=== PATIENT | male | born 1935 | race Caucasian/White ===

== ENCOUNTER → 2017-07-30 | Emergency (ER) | payer MEDICARE, OTHER ==
[~2017-07-30] VITALS: Ht 170.1 cm; Wt 88.5 kg
[2017-07-30 06:43] VITALS: BP 220/117
[2017-07-30 07:03] VITALS: BP 200/122
[2017-07-30 07:08] LABS: BASO # 0.1 10*3/uL (0.0-0.1); BASO % 0.7 % (0.0-1.0); EOS # 0.1 10*3/uL (0.0-0.4); EOS % 1.5 % (1.0-4.0); HEMATOCRIT 49.5 % (42.0-52.0); HEMOGLOBIN 16.9 g/dl (14.0-18.0); LYMPH # 1.6 10*3/uL (1.3-4.4); LYMPH % 21.6 % (27.0-41.0); MEAN CELL VOLUME 89.5 fl (80.0-94.0); MEAN CORPUSCULAR HGB 30.6 pg (27.0-31.0); MEAN CORPUSCULAR HGB CONC 34.1 g/dl (33.0-37.0); MEAN PLATELET VOLUME 10.6 fl (9.6-12.3); MONO # 0.4 10*3/uL (0.1-1.0); MONO % 5.3 % (3.0-9.0); NEUT # 5.1 10*3/uL (2.3-7.9); NEUT % 70.8 % (47.0-73.0); PLATELET COUNT AUTOMATED 179 10*3/uL (130-400); RED BLOOD COUNT 5.53 10*6/uL (4.50-5.90); RED CELL DISTRI WIDTH 14.9 % (0-14.5); WHITE BLOOD COUNT 7.2 10*3/uL (4.8-10.8)
[2017-07-30 07:26] LABS: ACETAMINOPHEN (TYLENOL) < 2.0 ug/ml (10-30); ALBUMIN 3.3 gm/dl (3.1-4.5); ALKALINE PHOSPHATASE 72 U/L (45-117); BUN 11 mg/dl (7-24); CHLORIDE 107 mmol/L (98-107); CREATININE 0.96 mg/dL (0.70-1.30); ETHYL ALCOHOL < 3.0 mg/dl (<3); POTASSIUM 4.3 mmol/L (3.5-5.1); SGOT/AST 41 IU/L (3-35); SGPT/ALT 23 U/L (12-78); SODIUM 140 mmol/L (136-145); TOTAL PROTEIN 7.6 gm/dL (6.4-8.2)
[2017-07-30 07:31] LABS: TROPONIN I < 0.015 ng/ml (<0.045)
--- NOTE | 2017-07-30 07:49 | NUR ---
PT IS CONFUSED AND HYPERTENSIVE. SON AT THE BEDSIDE. ATIVAN GIVEN. PT IS IN VIEW FROM THE DESK.
--- NOTE | 2017-07-30 08:00 | NUR ---
ATIVAN INEFFECTIVE, PT REMAINS CONFUSED AND HYPERTIVE.
[2017-07-30 08:15] VITALS: BP 208/110
--- NOTE | 2017-07-30 08:15 | NUR ---
PT SBP REMAINS IN THE 200'S, NOTIFIED DR NASH, PO LOPRESSOR ORDERED.
[2017-07-30 08:21] LABS: BILIRUBIN NEGATIVE (NEGATIVE); BLOOD 1+ (NEGATIVE); CLARITY CLEAR (CLEAR); COLOR YELLOW (YELLOW); GLUCOSE NEGATIVE (NEGATIVE); KETONE NEGATIVE (NEGATIVE); LEUKO ESTERASE NEGATIVE (NEGATIVE); NITRITE NEGATIVE (NEGATIVE); UROBILINOGEN 0.2 E.U./dl (0.2-1.0)
[2017-07-30 08:28] LABS: URINE AMPHETAMINES < 1000 (1000ng/ml); URINE BARBITURATES < 200 (200ng/ml); URINE BENZODIAZEPINES < 200 (200ng/ml); URINE CANNABINOIDS (THC) < 50 (50ng/ml); URINE COCAINE < 300 (300ng/ml); URINE METHADONE < 300 (300ng/ml); URINE OPIATES < 300 (300ng/ml)
[2017-07-30 08:30] LABS: URINE PHENCYCLIDINE < 25 (25ng/ml)
[2017-07-30 08:33] LABS: MUCOUS 1+
--- NOTE | 2017-07-30 08:57 | NUR ---
PT REFUSED TO SIGN HIS ADMISSION PAPERS AT THIS TIME, STATES "I'M LEAVING".
--- NOTE | 2017-07-30 09:36 | NUR ---
SUSAN PATEL, JERE AT THE BEDSIDE, PT STILL CONFUSED AND REFUSES ADMISSION. SON IS STANDING OUTSIDE THE ROOM, STATES " THERE IS NOTHING I CAN DO, IF HE IS REFUSING I CAN'T MAKE HIM". OF THE PT IS ALSO PRESENT, HOWEVER SHE HAS DEMEMTIA AND IS UNABLE TO MAKE ANY DECISIONS.
[2017-07-30 09:45] VITALS: BP 163/98
--- NOTE | 2017-07-30 09:46 | NUR ---
PT TO BE DISCHRAGED HOME, PT REMAINS CONFUSED AND WILL BE DISCHARGED HOME TO HIS SON AT .
== END ==
LOC: ED 06:34 → EDHOLD 08:53 → ED 08:53 → 5E 09:05 → EDHOLD 09:05 → 5E 09:05
PROVIDERS: Emergency Medicine Emergency Medical Services
DX: R41.0 Disorientation, unspecified (principal); I10 Essential (primary) hypertension; I48.91 Unspecified atrial fibrillation

== ENCOUNTER 2017-09-05 04:56 | Inpatient (IN) | payer MEDICARE, OTHER ==
[~2017-09-05] VITALS: Ht 172.7 cm; Wt 86.3 kg
--- NOTE | ~2017-09-05 | CON ---
[place], [place] REPORT OF CONSULTATION NAME: HAIM PERRY UNIT #: [id number] ROOM: 508 DOCTOR: XU BRADLEY MD BIRTHDATE: [birth year] DOS: 09/07/2017 CHIEF COMPLAINT: "Oh, it's a long story doc, I've been to so many doctors." HISTORY OF PRESENT ILLNESS: This is an 82-year-old male who was brought into the Emergency Room by his son for evaluation of diarrhea and inability to urinate. The patient was admitted to the medical floor for further workup and since he has been here, they have found him to be very confused and bizarre; at times, he has stripped naked and walk the lowery with only his White in place. He has been very bizarre and has made very odd comments. As I approached him, he reports he is here because he has gone from doctor to doctor. He reports he started with Dr. Chen for some vague complaints, but he was worthless, so he went to a doctor in [place]. When this doctor was not able to help him, he went to a doctor who is located on [address] at the [facility]. From there, he went back to Dr. Chen, then he went to Dr. Young in [place] where he received a flu shot in his heel. Because this caused him a great deal of pain, he went back to Dr. Chen. He continued to present this elaborate story of going from doctor to doctor for very bizarre comments. It is obvious that the patient is confused and disoriented and confabulates a great deal. MENTAL STATUS: He is alert and oriented to person, place, but not time. Mood does seem to be rather labile and he shifts topics very quickly. He presents with extreme tangentiality as well as being somewhat delusional. Short term memory is exceedingly poor. DIAGNOSIS: Brief psychotic disorder and Alzheimer dementia. PLAN: At this point, I do think placement is warranted. From talking with the nursing staff, apparently social insurance specialist is working for possible placement for both the patient and his at [facility] on their locked memory unit. The patient would benefit from some dementia medication as well as some possible low dose antipsychotic and he would benefit from inpatient stay on the [facility] should the son and family agree. XU BRADLEY MD CM:CONSTR:REPORT OF CONSULTATION 1018 09/08/17 0011 interface
--- NOTE | ~2017-09-05 | CON ---
[place], [place] REPORT OF CONSULTATION NAME: HAIM PERRY UNIT #: [id number] ROOM: 508 DOCTOR: BRENDA PARK ED.D) BIRTHDATE: [birth year] DOS: 09/05/2017 HISTORY OF PRESENT ILLNESS: The patient is an 82-year-old male referred by the hospitalist for competency. At the present time, he is on the 5th floor at [facility]. He states he is and presently resides with his here in [place]. He does have two sons, one residing in [place], [place] and the other one in [place], [place]. 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 The patient was following formerly with Dr. Robbie Ahumada; Dr. Ahumada is no longer in private practice and apparently the patient has not been following with any medical providers. He denies any alcohol or tobacco use or abuse. The patient was awake, alert and oriented in all three spheres. He had some mild cognitive deterioration; however, he did fairly well. He was quite concerned about the fact that his is not here and was agitated at times regarding the fact that we cannot get her on the telephone. It was explained to him that his was at a restaurant and that she would be calling him here at the hospital. He was alright with that once it was explained to him that she will be calling here. Overall, he did fairly well, but he does have some neurocognitive deterioration, most likely Alzheimer disease. DIAGNOSIS: Minor neurocognitive disorder -- Alzheimer disease. RECOMMENDATIONS: All decision should be made in cooperation with his healthcare surrogate or healthcare power of compliance attorney or his family due to the fact he has some difficulty with his cognitive decompensation. Thank you very much for this consult. BRENDA PARK ED.D CM:CONSTR:REPORT OF CONSULTATION 1219 09/06/17 0036 interface
[2017-09-05 05:02] VITALS: BP 159/98
[2017-09-05] MEDS ORDERED: PREVACID15 MG PO (05:03)
[2017-09-05 05:48] LABS: BASO % 0.5 % (0.0-1.0); EOS # 0.2 10*3/uL (0.0-0.4); EOS % 2.1 % (1.0-4.0); HEMATOCRIT 44.7 % (42.0-52.0); HEMOGLOBIN 15.2 g/dl (14.0-18.0); LYMPH # 1.8 10*3/uL (1.3-4.4); LYMPH % 22.2 % (27.0-41.0); MEAN PLATELET VOLUME 10.1 fl (9.6-12.3); MONO # 0.4 10*3/uL (0.1-1.0); MONO % 4.9 % (3.0-9.0); NEUT # 5.7 10*3/uL (2.3-7.9); NEUT % 69.9 % (47.0-73.0); PLATELET COUNT AUTOMATED 221 10*3/uL (130-400); RED BLOOD COUNT 4.91 10*6/uL (4.50-5.90); RED CELL DISTRI WIDTH 14.1 % (0-14.5); WHITE BLOOD COUNT 8.1 10*3/uL (4.8-10.8)
[2017-09-05] MEDS ORDERED: DONEPEZIL HCL10 MG PO (05:50)
[2017-09-05] MEDS ORDERED: PRAVACHOL40 MG PO (05:51)
[2017-09-05] MEDS ORDERED: LISINOPRIL-HCT1 EACH PO (05:51)
[2017-09-05] MEDS ORDERED: FLOMAX0.4 MG PO (05:52)
[2017-09-05] MEDS ORDERED: FENOFIBRATE160 MG PO (05:52)
[2017-09-05 06:48] LABS: BILIRUBIN NEGATIVE (NEGATIVE); BLOOD NEGATIVE (NEGATIVE); CLARITY CLEAR (CLEAR); COLOR YELLOW (YELLOW); GLUCOSE NEGATIVE (NEGATIVE); KETONE NEGATIVE (NEGATIVE); LEUKO ESTERASE NEGATIVE (NEGATIVE); NITRITE NEGATIVE (NEGATIVE); PH 7.5 (5.0-9.0); SPECIFIC GRAVITY 1.015 (1.005-1.030); UROBILINOGEN 0.2 E.U./dl (0.2-1.0)
[2017-09-05 07:00] LABS: BACTERIA TRACE; EPITHELIAL CELLS 0-2; WBC 0-2 wbc/hpf (0-5)
[2017-09-05 07:01] LABS: ALKALINE PHOSPHATASE 66 U/L (45-117); BUN 10 mg/dl (7-24); CHLORIDE 109 mmol/L (98-107); CREATININE 0.83 mg/dL (0.70-1.30); LIPASE 206 U/L (73-393); POTASSIUM 3.8 mmol/L (3.5-5.1); SGOT/AST 19 IU/L (3-35); SGPT/ALT 28 U/L (12-78); SODIUM 145 mmol/L (136-145); TOTAL PROTEIN 6.9 gm/dL (6.4-8.2)
[2017-09-05 07:15] VITALS: BP 159/98
[2017-09-05 08:00] VITALS: BP 126/70
[2017-09-05 12:00] VITALS: BP 150/95
[2017-09-05 20:00] VITALS: BP 154/82
[2017-09-06] VITALS: BP 160/90
[2017-09-06 07:59] LABS: BASO # 0.1 10*3/uL (0.0-0.1); BASO % 0.5 % (0.0-1.0); EOS # 0.2 10*3/uL (0.0-0.4); EOS % 1.5 % (1.0-4.0); HEMATOCRIT 48.5 % (42.0-52.0); HEMOGLOBIN 16.4 g/dl (14.0-18.0); LYMPH # 2.4 10*3/uL (1.3-4.4); LYMPH % 21.7 % (27.0-41.0); MEAN CELL VOLUME 91.3 fl (80.0-94.0); MEAN CORPUSCULAR HGB 30.9 pg (27.0-31.0); MEAN CORPUSCULAR HGB CONC 33.8 g/dl (33.0-37.0); MEAN PLATELET VOLUME 10.3 fl (9.6-12.3); MONO # 0.7 10*3/uL (0.1-1.0); MONO % 5.9 % (3.0-9.0); NEUT # 7.7 10*3/uL (2.3-7.9); PLATELET COUNT AUTOMATED 244 10*3/uL (130-400); RED BLOOD COUNT 5.31 10*6/uL (4.50-5.90); RED CELL DISTRI WIDTH 14.1 % (0-14.5)
[2017-09-06 08:00] VITALS: BP 165/99
[2017-09-06 08:27] LABS: CHLORIDE 106 mmol/L (98-107); POTASSIUM 4.1 mmol/L (3.5-5.1); SODIUM 141 mmol/L (136-145)
[2017-09-06 08:41] LABS: BUN 8 mg/dl (7-24); CHOLESTEROL 185 mg/dL (<200); CREATININE 0.78 mg/dL (0.70-1.30); FREE T4 1.22 ng/dl (0.76-1.46); HDL CHOLESTEROL 38 mg/dl (40-60); LDL CHOLESTEROL 107 mg/dL (9-159); TRIGLYCERIDES 202 mg/dl (<150); VLDL CHOLESTEROL 40 mg/dL (6-40)
[2017-09-06 09:13] LABS: VITAMIN D, 25-HYDROXY 26.9 ng/mL (30-100)
[2017-09-06 12:00] VITALS: BP 152/57
[2017-09-06 16:00] VITALS: BP 142/97
[2017-09-06 20:00] VITALS: BP 145/90
[2017-09-07] VITALS: BP 142/90
[2017-09-07 08:00] VITALS: BP 149/99
[2017-09-07 12:00] VITALS: BP 140/88
[2017-09-07] MEDS ORDERED: Vitamin D PO (14:30)
[2017-09-07] MEDS ORDERED: RISPERIDONE0.5 MG PO (14:30)
[2017-09-07] MEDS ORDERED: NAMENDA-5 PO (14:30)
[2017-09-07] MEDS ORDERED: RISPERIDONE0.25 M2 PO (14:30)
[2017-09-07 16:00] VITALS: BP 108/70
== END 2017-09-07 16:46 | disposition home health service (06) | DRG 726 ==
LOC: ED 04:56 → EDHOLD 08:50 → 5E 08:50
PROVIDERS: Emergency Medicine; Student in an Organized Health Care Education/Training Program
DX: N40.1 Benign prostatic hyperplasia with lower urinary tract symptoms (principal); L89.152 Pressure ulcer of sacral region, stage 2; E44.0 Moderate protein-calorie malnutrition; G30.9 Alzheimer's disease, unspecified; I48.91 Unspecified atrial fibrillation; F02.80 Dementia in other diseases classified elsewhere, unspecified severity, without behavioral disturbance, psychotic disturbance, mood disturbance, and anxiety; F23 Brief psychotic disorder; R33.8 Other retention of urine; R26.2 Difficulty in walking, not elsewhere classified; E78.00 Pure hypercholesterolemia, unspecified; K58.9 Irritable bowel syndrome, unspecified; I10 Essential (primary) hypertension; Z90.89 Acquired absence of other organs; Z90.49 Acquired absence of other specified parts of digestive tract; Z82.3 Family history of stroke; Z79.899 Other long term (current) drug therapy; Z68.28 Body mass index [BMI] 28.0-28.9, adult

== ENCOUNTER 2017-09-07 15:47 | Inpatient (IN) | payer MEDICARE, OTHER ==
[~2017-09-07] VITALS: Ht 172.7 cm; Wt 86.3 kg
--- NOTE | ~2017-09-07 | PR ---
[place], [place] PROGRESS NOTE NAME: HAIM PERRY UNIT #: [id number] ROOM: 316 DOCTOR: XU BRADLEY MD BIRTHDATE: [birth year] DOS: 09/10/2017 CHIEF COMPLAINT: "Yeah, I think I will stay here a little longer, the ball game was good." SUMMARY OF THE VISIT: The patient was interviewed as he was walking in the hallway. He remains rather confused and he does tend to confabulate a lot. With me, he was pleasant and stated that he enjoyed the hotel and that he was watching the ball game. Otherwise, he was fairly pleasant and bright as mentioned before, though confused and disoriented in his thinking. MENTAL STATUS: He is alert and oriented to self. It is unclear obviously if he realizes he is in the hospital. He is certainly not oriented to time. Mood remains somewhat labile. He remains delusional and very sexually preoccupied and has been very vulgar and profane at times with staff. Memory remains poor. PLAN: His vitamin B12 level is low at 243, so I will go ahead and give him a vitamin B12 injection of 1000 mcg IM today and then q. month. Vitamin D level is also low at 26.9, so I will give him vitamin D 50,000 International Units weekly and discontinue his daily D. We will increase Namenda to 10 mg in the morning and 5 mg at night trying to maximize potential benefit and increase the Risperdal to 0.5 mg in the morning and 1 mg at bedtime to decrease some of his delusions, mood lability and agitation. Engage in individual and connell milieu activity, returning to the least restrictive environment when psychiatrically stable. XU BRADLEY MD CM:PNTRANS [id number] XU BRADLEY MD 09/10/17 1249 interface
--- NOTE | ~2017-09-07 | DS ---
[place], [place] DISCHARGE SUMMARY NAME: HAIM PERRY [facility] #: [id number] UNIT #: [id number] ROOM: 311 DOCTOR: XU BRADLEY MD BIRTHDATE: [birth year] DOS: 09/18/2017 CHIEF COMPLAINT: "I don't know why I am here." HISTORY OF PRESENT ILLNESS: This is an 82-year-old white male who was admitted to the [facility] at [facility] from the medical unit due to increased agitation and aggression. The patient had been admitted because of a significant decubiti, but while on the medical unit was found to be very combative and aggressive. The patient was repeatedly stripping his clothes and walking down the hallway naked. When attempted to be redirected, he would become physically aggressive with staff. He was verbally abusive and would yell profane laden stream of conversation at nurses and other patients. He is admitted now to rule out any organic factors, to attempt to re-stabilize on medication and then to determine the least restrictive environment post-discharge. PAST MEDICAL HISTORY: Remarkable for atrial fibrillation, benign prostatic hypertrophy, Alzheimer's dementia, hyperlipidemia, gait disturbance, moderate protein calorie malnutrition, stage II sacral decubiti and hypertension. SUMMARY OF HOSPITAL COURSE: The patient was admitted to the unit where he was started on Risperdal 0.25 in the morning and 0.5 mg at bedtime. This dose was gradually increased during his stay to a maximum of 2 mg at bedtime; however, after several days of the Risperdal, the patient became episodically compliant with all of his medication. Because he was tolerating the Risperdal well, was not exhibiting any side effects from it, there was no sedation, somnolence, extrapyramidal symptoms or tardive dyskinesia, he was loaded with Risperdal Consta 25 mg IM and the order was given to give this every 14 days. With the Risperdal Consta on board, the patient's symptoms dissipated rather quickly. He became much more pleasant and cooperative. He was able to engage readily in both PT and OT as well as other activities on the unit. Additionally, the patient was given Aricept 10 mg a day, which he had been on previously and Namenda was added first at 5 mg a day and rather rapidly titrated up to 10 mg twice daily. With the Namenda on board augmenting the effectiveness of the Aricept, the patient did improve somewhat cognitively. He also did improve behaviorally to the point where he was able to engage more readily in activities without agitation. He no longer exhibited extreme mood lability. He was not yelling profane laden sentences at people. He was pleasant and cooperative. The patient had improved significantly to be able to be discharged. Given the fact that he still had the sacral decubiti, it was felt that he would benefit from further skilled care and he was sent to [facility] for further treatment. MENTAL STATUS AT DISCHARGE: The patient is alert and oriented to person, possibly place, but not time. Mood was strongly trending towards euthymia. Affect was much more appropriate. There were no symptoms of hypomania or tano. There were no overt auditory or visual hallucinations. No delusions, no paranoia. He did process slowly and his responses at times made little sense. Short-term memory was extremely poor. [place], [place] DISCHARGE SUMMARY [id number] UN[facility] #: [id number] ROOM: [facility] DOCTOR: XU BRADLEY MD BIRTHDATE: [birth year] FINAL DIAGNOSES UPON DISCHARGE: Psychosis, not otherwise specified and Alzheimer's dementia. PLAN: All of his prescriptions have been printed and will be sent with him as he is admitted to [facility]. I will follow him upon his admission there. XU BRADLEY MD CM:DISCHARG [phone] XU BRADLEY MD 09/18/17 1019 interface
--- NOTE | ~2017-09-07 | PR ---
[place], [place] PROGRESS NOTE NAME: HAIM PERRY [facility] #: [id number] UNIT #: [id number] ROOM: 311 DOCTOR: Dallas CARNEY,SUSY BIRTHDATE: [birth year] DOS: 09/15/2017 PSYCHIATRIC PROGRESS NOTE SUBJECTIVE: The patient seen and spoke with the staff. Per staff, the patient is doing well, compliant with his medication, no behavioral problems or issues, easily redirectable. The patient was pleasant, cooperative. He was in his bed. He reports doing well. He said that his mood is better. He denied any side effect from the medication. He reports good sleep and appetite. He was not in any kind of distress. MENTAL STATUS EXAMINATION: Pleasant, cooperative, described his mood as "okay." Affect, mood congruent. He denied auditory or visual hallucination. No delusion or paranoia noted. He denied suicidal ideation, intent or plan. He also denied any homicidal ideation, intent or plan. ASSESSMENT: 1. Alzheimer's dementia with delusion. 2. Brief psychotic disorder. PLAN: 1. Continue current medications and care. 2. Continue redirection. 3. Supportive care. SUSY CARNEY MD CM:TOBI [phone] Dallas CARNEY 09/16/17 0248 interface
--- NOTE | ~2017-09-07 | PR ---
[place], [place] PROGRESS NOTE [facility]: [id number] UNIT #: [id number] ROOM: 311 DOCTOR: XU BRADLEY MD BIRTHDATE: [birth year] DOS: 09/17/2017 CHIEF COMPLAINT: "Good morning sukhdev. Thanks for the coffee." SUMMARY OF THE VISIT: The patient was interviewed as he sat in the dining area with a watching television. He had completed his breakfast and was sipping on his second cup of coffee. He was bright and jovial as I approached thanking me for the coffee and thanking me for visiting. He offered no complaints. Nurses report that overall he has improved other than he occasionally gets upset when he cannot talk to his on the phone. It does take some redirection, but he is able to eventually redirect. MENTAL STATUS: He is alert and oriented to person, place, not necessarily time. Mood does seem to be trending towards euthymia. Affect is more appropriate. There are no symptoms of tano or hypomania. There are no auditory or visual hallucinations. There are no delusions or paranoia. He does process conversation slowly and short term memory is exceedingly poor. PLAN: I will maintain his current psychotropic regimen, continue to engage in individual and connell milieu activities, returning then to the least restrictive environment when psychiatrically stable. XU BRADLEY MD CM:PNTRANS 7 XU BRADLEY MD 09/17/1748 interface
--- NOTE | ~2017-09-07 | PR ---
[place], [place] PROGRESS NOTE [id number] #: [id number] ROOM: 311 DOCTOR: Dallas CARNEY,SUSY BIRTHDATE: [birth year] DOS: 09/16/2017 SUBJECTIVE: Patient seen and spoke with the staff. Per staff, patient is doing good. No behavioral problems or issues. Compliant with his medication. Good sleep and appetite. Patient was in the day area. He was in a wheelchair. He reports doing good. He said that he is waiting for his son to drop off some clothes. He denied depressed mood or hopelessness. He was not in any kind of distress. MENTAL STATUS EXAMINATION: Patient was pleasant and cooperative. Described his mood as "good." Affect, mood congruent. Thought processes with confabulation. He denied any auditory or visual hallucination. No delusion or paranoia noted. He denied suicidal ideation, intent or plan. He also denied any homicidal ideation, intent or plan. ASSESSMENT: 1. Alzheimer's dementia with delusion. 2. Brief psychotic episode. PLAN: 1. Continue current medication and care. 2. Continue redirection. 3. Final medication management and discharge plan by the regular team. SUSY CARNEY MD CM:PNELVIS 05 02 Dallas CARNEY 09/16/172301 interface
[~2017-09-07 15:47] MED LIST: DONEPEZIL HCL10 MG PO; FENOFIBRATE160 MG PO; FLOMAX0.4 MG PO; LISINOPRIL-HCT1 EACH PO; NAMENDA-5 PO; PRAVACHOL40 MG PO; PREVACID15 MG PO; RISPERIDONE0.25 M2 PO; RISPERIDONE0.5 MG PO; Vitamin D PO
[2017-09-07 17:37] VITALS: BP 122/84
[2017-09-07 20:00] VITALS: BP 109/63
[2017-09-08 08:12] VITALS: BP 117/71
[2017-09-08 20:00] VITALS: BP 126/83
[2017-09-09 08:19] VITALS: BP 138/76
[2017-09-09 20:39] VITALS: BP 115/68
[2017-09-10 08:14] VITALS: BP 124/86
[2017-09-10 20:00] VITALS: BP 105/70
[2017-09-11 10:10] VITALS: BP 112/64
[2017-09-11 20:49] VITALS: BP 115/70
[2017-09-12 08:18] VITALS: BP 135/74
[2017-09-12 20:00] VITALS: BP 134/64
[2017-09-13 08:13] VITALS: BP 124/68
[2017-09-13 20:00] VITALS: BP 111/67
[2017-09-14 07:52] VITALS: BP 118/74
[2017-09-14 20:00] VITALS: BP 113/70
[2017-09-15 07:52] VITALS: BP 118/72
[2017-09-15 20:00] VITALS: BP 108/68
[2017-09-16 07:41] VITALS: BP 112/68
[2017-09-17 08:20] VITALS: BP 142/64
[2017-09-17 20:00] VITALS: BP 138/66
[2017-09-18 08:11] VITALS: BP 124/75
[2017-09-18] MEDS ORDERED: RISPERDAL M-TA0.5 MG BC (09:53)
[2017-09-18] MEDS ORDERED: ARICEPT10 M1 PO (09:53)
[2017-09-18] MEDS ORDERED: RISPERDAL CONST25 MG IM (09:53)
[2017-09-18] MEDS ORDERED: MEMANTINE HCL10 MG PO (09:53)
== END 2017-09-18 17:56 | disposition other institution (70) | DRG 885 ==
LOC: 3N 15:47
DX: F23 Brief psychotic disorder (principal); L89.152 Pressure ulcer of sacral region, stage 2; L89.310 Pressure ulcer of right buttock, unstageable; L89.323 Pressure ulcer of left buttock, stage 3; F02.81 Dementia in other diseases classified elsewhere, unspecified severity, with behavioral disturbance; G30.9 Alzheimer's disease, unspecified; I48.2 Chronic atrial fibrillation; E78.00 Pure hypercholesterolemia, unspecified; I10 Essential (primary) hypertension; Z90.49 Acquired absence of other specified parts of digestive tract; Z82.3 Family history of stroke; Z79.899 Other long term (current) drug therapy; N40.1 Benign prostatic hyperplasia with lower urinary tract symptoms; R33.8 Other retention of urine

== ENCOUNTER 2017-09-21 12:53 | Inpatient (IN) | payer MEDICARE, OTHER ==
[2017-09-21] VITALS (8 sets, daily range): BP systolic 82–106; BP diastolic 00–73
[~2017-09-21] VITALS: Ht 172.7 cm; Wt 88.1 kg
--- NOTE | ~2017-09-21 | EKG ---
[place], [place] ELECTROCARDIOGRAM REPORT NAME: HAIM PERRY UNIT #: [id number] ROOM: [facility] DOCTOR: TOMAS DERAS,LARA BIRTHDATE: [birth year] DOS: 09/21/2017 TIME: 1320 hours. IMPRESSION: 1. Atrial fibrillation, controlled ventricular rate. 2. Old inferior infarction. 3. Normal QT interval. 4. Low voltage in the limb leads. LARA MARIN MD CM:EKGRPT:ELECTROCARDIOGRAM REPORT [id number] LARA MARIN MD
[~2017-09-21 12:53] MED LIST changes: +ARICEPT10 M1 PO; +MEMANTINE HCL10 MG PO; +RISPERDAL CONST25 MG IM; +RISPERDAL M-TA0.5 MG BC
[2017-09-21 13:43] LABS: BILIRUBIN 1+ (NEGATIVE); BLOOD 3+ (NEGATIVE); CLARITY CLEAR (CLEAR); COLOR YELLOW (YELLOW); GLUCOSE NEGATIVE (NEGATIVE); KETONE NEGATIVE (NEGATIVE); LEUKO ESTERASE 2+ (NEGATIVE); NITRITE POSITIVE (NEGATIVE); PH 5.5 (5.0-9.0); SPECIFIC GRAVITY >= 1.030 (1.005-1.030)
[2017-09-21 13:52] LABS: RBC TNTC rbc/hpf (0-2); WBC TNTC wbc/hpf (0-5)
[2017-09-21 13:54] LABS: HEMATOCRIT 46.3 % (42.0-52.0); HEMOGLOBIN 15.5 g/dl (14.0-18.0); MEAN CELL VOLUME 91.7 fl (80.0-94.0); MEAN CORPUSCULAR HGB 30.7 pg (27.0-31.0); MEAN CORPUSCULAR HGB CONC 33.5 g/dl (33.0-37.0); MEAN PLATELET VOLUME 10.6 fl (9.6-12.3); PLATELET COUNT AUTOMATED 180 10*3/uL (130-400); RED BLOOD COUNT 5.05 10*6/uL (4.50-5.90); RED CELL DISTRI WIDTH 13.5 % (0-14.5); WHITE BLOOD COUNT 25.9 10*3/uL (4.8-10.8)
[2017-09-21] MEDS ORDERED: LAMICTAL200 MG PO (13:56)
[2017-09-21 14:06] LABS: TOTAL CELLS COUNTED 100 #CELLS
[2017-09-21 14:07] LABS: ALBUMIN 2.5 gm/dl (3.1-4.5); BURR CELLS MODERATE; CREATININE 2.21 mg/dL (0.70-1.30); PLATELET SUFFICIENCY NORMAL (NORMAL); POTASSIUM 3.9 mmol/L (3.5-5.1); TOTAL PROTEIN 7.7 gm/dL (6.4-8.2); VACUOLATION OF NEUTROPHILS SLIGHT
[2017-09-21 15:19] LABS: PHOSPHOROUS 3.4 mg/dL (2.5-4.9)
[2017-09-21 15:21] LABS: TROPONIN I < 0.015 ng/ml (<0.045)
[2017-09-22] VITALS: BP 110/50
[2017-09-22 05:58] LABS: BASO % 0.2 % (0.0-1.0); EOS % 0.1 % (1.0-4.0); HEMATOCRIT 43.1 % (42.0-52.0); HEMOGLOBIN 14.5 g/dl (14.0-18.0); LYMPH # 1.3 10*3/uL (1.3-4.4); LYMPH % 6.5 % (27.0-41.0); MEAN CELL VOLUME 90.5 fl (80.0-94.0); MEAN CORPUSCULAR HGB 30.5 pg (27.0-31.0); MEAN CORPUSCULAR HGB CONC 33.6 g/dl (33.0-37.0); MEAN PLATELET VOLUME 10.7 fl (9.6-12.3); MONO # 0.8 10*3/uL (0.1-1.0); MONO % 4.1 % (3.0-9.0); NEUT # 16.8 10*3/uL (2.3-7.9); NEUT % 87.6 % (47.0-73.0); PLATELET COUNT AUTOMATED 174 10*3/uL (130-400); RED BLOOD COUNT 4.76 10*6/uL (4.50-5.90); RED CELL DISTRI WIDTH 13.4 % (0-14.5); WHITE BLOOD COUNT 19.1 10*3/uL (4.8-10.8)
[2017-09-22 06:28] LABS: BUN 36 mg/dl (7-24); CHLORIDE 109 mmol/L (98-107); POTASSIUM 3.1 mmol/L (3.5-5.1); SODIUM 143 mmol/L (136-145)
[2017-09-22 08:00] VITALS: BP 116/78
[2017-09-22 16:00] VITALS: BP 118/85
[2017-09-22 20:00] VITALS: BP 118/63
[2017-09-23] VITALS: BP 120/65
[2017-09-23 06:59] LABS: BASO % 0.2 % (0.0-1.0); EOS # 0.1 10*3/uL (0.0-0.4); EOS % 0.8 % (1.0-4.0); HEMATOCRIT 41.5 % (42.0-52.0); HEMOGLOBIN 14.3 g/dl (14.0-18.0); LYMPH # 1.3 10*3/uL (1.3-4.4); LYMPH % 9.7 % (27.0-41.0); MEAN CELL VOLUME 89.4 fl (80.0-94.0); MEAN CORPUSCULAR HGB 30.8 pg (27.0-31.0); MEAN CORPUSCULAR HGB CONC 34.5 g/dl (33.0-37.0); MEAN PLATELET VOLUME 11.2 fl (9.6-12.3); MONO # 0.5 10*3/uL (0.1-1.0); MONO % 4.1 % (3.0-9.0); NEUT % 84.6 % (47.0-73.0); PLATELET COUNT AUTOMATED 223 10*3/uL (130-400); RED BLOOD COUNT 4.64 10*6/uL (4.50-5.90); RED CELL DISTRI WIDTH 13.5 % (0-14.5)
[2017-09-23 07:24] LABS: CHLORIDE 105 mmol/L (98-107); CREATININE 0.82 mg/dL (0.70-1.30); POTASSIUM 3.4 mmol/L (3.5-5.1); SODIUM 141 mmol/L (136-145)
[2017-09-23 07:48] LABS: BUN 24 mg/dl (7-24)
[2017-09-23 08:00] VITALS: BP 123/82
[2017-09-23 12:00] VITALS: BP 125/80
[2017-09-23 16:00] VITALS: BP 139/77
[2017-09-23 20:00] VITALS: BP 140/70
[2017-09-24] VITALS: BP 135/93
[2017-09-24 08:00] VITALS: BP 131/78
[2017-09-24 08:03] LABS: BUN 20 mg/dl (7-24); CHLORIDE 107 mmol/L (98-107); CREATININE 0.79 mg/dL (0.70-1.30); POTASSIUM 3.7 mmol/L (3.5-5.1); SODIUM 141 mmol/L (136-145)
[2017-09-24 12:00] VITALS: BP 137/83
[2017-09-24 16:00] VITALS: BP 148/89
[2017-09-24 20:00] VITALS: BP 128/88
[2017-09-25] VITALS: BP 129/63
[2017-09-25 08:00] VITALS: BP 149/98
[2017-09-25 12:00] VITALS: BP 140/93
[2017-09-25] MEDS ORDERED: CIPRO250 MG PO (13:22)
[2017-09-25] MEDS ORDERED: ASPIRIN ADULT L81 M2 PO (13:22)
== END 2017-09-25 15:13 | disposition home or self-care (01) | DRG 698 ==
LOC: ED 12:53 → 5E 15:35 → EDHOLD 15:35 → 5E 15:43
PROVIDERS: Emergency Medicine; Internal Medicine; Student in an Organized Health Care Education/Training Program
DX: T83.511A Infection and inflammatory reaction due to indwelling urethral catheter, initial encounter (principal); A41.9 Sepsis, unspecified organism; N17.0 Acute kidney failure with tubular necrosis; R65.20 Severe sepsis without septic shock; L89.152 Pressure ulcer of sacral region, stage 2; G93.41 Metabolic encephalopathy; L89.310 Pressure ulcer of right buttock, unstageable; E44.0 Moderate protein-calorie malnutrition; L89.312 Pressure ulcer of right buttock, stage 2; L89.323 Pressure ulcer of left buttock, stage 3; E87.2 Acidosis; E87.1 Hypo-osmolality and hyponatremia; L89.022 Pressure ulcer of left elbow, stage 2; R29.702 NIHSS score 2; I48.91 Unspecified atrial fibrillation; G30.9 Alzheimer's disease, unspecified; B96.1 Klebsiella pneumoniae [K. pneumoniae] as the cause of diseases classified elsewhere; B95.2 Enterococcus as the cause of diseases classified elsewhere; F02.80 Dementia in other diseases classified elsewhere, unspecified severity, without behavioral disturbance, psychotic disturbance, mood disturbance, and anxiety; I65.23 Occlusion and stenosis of bilateral carotid arteries; E87.6 Hypokalemia; E87.8 Other disorders of electrolyte and fluid balance, not elsewhere classified; R73.9 Hyperglycemia, unspecified; I10 Essential (primary) hypertension; Y84.6 Urinary catheterization as the cause of abnormal reaction of the patient, or of later complication, without mention of misadventure at the time of the procedure; N40.0 Benign prostatic hyperplasia without lower urinary tract symptoms; E78.00 Pure hypercholesterolemia, unspecified; Z68.29 Body mass index [BMI] 29.0-29.9, adult; Z90.49 Acquired absence of other specified parts of digestive tract; Z79.899 Other long term (current) drug therapy; Z98.41 Cataract extraction status, right eye; Y92.89 Other specified places as the place of occurrence of the external cause; Z82.3 Family history of stroke

== ENCOUNTER 2018-02-25 00:40 | Emergency (ER) | payer MEDICARE, OTHER ==
[~2018-02-25 00:40] MED LIST changes: +ASPIRIN ADULT L81 M2 PO; +CIPRO250 MG PO; +LAMICTAL200 MG PO
[2018-02-25 01:19] LABS: BASO # 0.1 10*3/uL (0.0-0.1); BASO % 0.8 % (0.0-1.0); EOS # 0.1 10*3/uL (0.0-0.4); EOS % 1.3 % (1.0-4.0); HEMATOCRIT 51.6 % (42.0-52.0); HEMOGLOBIN 16.7 g/dl (14.0-18.0); LYMPH # 2.4 10*3/uL (1.3-4.4); LYMPH % 30.8 % (27.0-41.0); MEAN CORPUSCULAR HGB 28.8 pg (27.0-31.0); MEAN CORPUSCULAR HGB CONC 32.4 g/dl (33.0-37.0); MEAN PLATELET VOLUME 10.3 fl (9.6-12.3); MONO # 0.6 10*3/uL (0.1-1.0); MONO % 7.7 % (3.0-9.0); NEUT # 4.6 10*3/uL (2.3-7.9); NEUT % 58.4 % (47.0-73.0); PLATELET COUNT AUTOMATED 148 10*3/uL (130-400); RED CELL DISTRI WIDTH 14.2 % (0-14.5); WHITE BLOOD COUNT 7.8 10*3/uL (4.8-10.8)
[2018-02-25 01:29] LABS: ACT PARTIAL THROMBO TIME 27.2 SECONDS (20.8-31.5); INTERNATIONAL NORM RATIO 1.1 (2.0-3.5)
[2018-02-25 01:39] LABS: ALBUMIN 3.1 gm/dl (3.1-4.5); ALKALINE PHOSPHATASE 67 U/L (45-117); BUN 23 mg/dl (7-24); CHLORIDE 108 mmol/L (98-107); CREATININE 1.28 mg/dL (0.70-1.30); POTASSIUM 4.2 mmol/L (3.5-5.1); SGOT/AST 26 IU/L (3-35); SGPT/ALT 32 U/L (12-78); SODIUM 145 mmol/L (136-145); TOTAL PROTEIN 7.7 gm/dL (6.4-8.2)
[2018-02-25 01:40] LABS: TROPONIN I < 0.015 ng/ml (<0.045)
[2018-02-25 02:30] LABS: BILIRUBIN NEGATIVE (NEGATIVE); BLOOD TRACE-INTACT (NEGATIVE); CLARITY CLEAR (CLEAR); COLOR YELLOW (YELLOW); GLUCOSE NEGATIVE (NEGATIVE); KETONE NEGATIVE (NEGATIVE); LEUKO ESTERASE TRACE (NEGATIVE); NITRITE POSITIVE (NEGATIVE); UROBILINOGEN 0.2 E.U./dl (0.2-1.0)
[2018-02-25 02:38] LABS: BACTERIA 2+; WBC 21-30 wbc/hpf (0-5)
[2018-02-25] MEDS ORDERED: SEPTDS PO (02:46)
[2018-02-25] MEDS ORDERED: FINASTERIDE5 M1 PO (03:04)
[2018-02-25] MEDS ORDERED: MEMANTINE HCL10 MG PO (03:06)
[2018-02-25] MEDS ORDERED: VISTARIL50 MG PO (03:06)
[2018-02-25] MEDS ORDERED: MIRTAZAPINE15 M2 PO (03:07)
[2018-02-25] MEDS ORDERED: DIVALPROEX SOD500 MG PO (03:08)
[2018-02-25] MEDS ORDERED: VITAMIN D-32000 UNIT PO (03:08)
[2018-02-25] MEDS ORDERED: PERCOCET 5-3251 EACH PO (03:10)
== END 2018-02-25 03:20 | disposition home or self-care (01) ==
LOC: ED 00:40
PROVIDERS: Student in an Organized Health Care Education/Training Program
DX: N39.0 Urinary tract infection, site not specified (principal); G30.9 Alzheimer's disease, unspecified; F02.80 Dementia in other diseases classified elsewhere, unspecified severity, without behavioral disturbance, psychotic disturbance, mood disturbance, and anxiety; I48.91 Unspecified atrial fibrillation; I10 Essential (primary) hypertension; E78.00 Pure hypercholesterolemia, unspecified; L89.152 Pressure ulcer of sacral region, stage 2; Z90.49 Acquired absence of other specified parts of digestive tract; Z98.890 Other specified postprocedural states; Z79.899 Other long term (current) drug therapy; Z79.82 Long term (current) use of aspirin

== ENCOUNTER 2018-07-22 18:36 | Emergency (ER) | payer MEDICARE, OTHER ==
[~2018-07-22] VITALS: Wt 86.2 kg
--- NOTE | ~2018-07-22 | EKG ---
[place], [place] ELECTROCARDIOGRAM REPORT NAME: HAIM PERRY UNIT #: [id number] ROOM: DOCTOR: EPIPHLOLI DRAFT REPORT BIRTHDATE: [birth year] [facility] Test Date: 2018-07-22 Test Time: 18:59:37 Pat Name: HAIM PERRY Department: ER Room: 6 Gender: M Power Plant Inspector: EKG.NC : 1935 Requested By: GIDEON SHAH Order Number: [id number] Reading MD: Fracisco Mclean MD Measurements Intervals [place] Rate: 88 P: [place]: QRS: 26 QRSD: 88 T: 14 QT: 326 QTc: 395 Interpretive Statements Atrial fibrillation Ventricular premature complex Low voltage, extremity leads Electronically Signed On 07-23-2018 4:07:16 PST by Fracisco Mclean MD CM:EKGRPT:ELECTROCARDIOGRAM REPORT [id number] 0407 GIDEON AVILES DRAFT REPORT GIDEON SHAH DO
[~2018-07-22 18:36] MED LIST changes: +DIVALPROEX SOD500 MG PO; +FINASTERIDE5 M1 PO; +MIRTAZAPINE15 M2 PO; +PERCOCET 5-3251 EACH PO; +SEPTDS PO; +VISTARIL50 MG PO; +VITAMIN D-32000 UNIT PO
[2018-07-22 19:10] LABS: BASO # 0.1 10*3/uL (0.0-0.1); BASO % 0.7 % (0.0-1.0); EOS # 0.1 10*3/uL (0.0-0.4); EOS % 1.5 % (1.0-4.0); HEMATOCRIT 44.3 % (42.0-52.0); HEMOGLOBIN 14.8 g/dl (14.0-18.0); LYMPH # 1.9 10*3/uL (1.3-4.4); LYMPH % 28.3 % (27.0-41.0); MEAN CELL VOLUME 97.6 fl (80.0-94.0); MEAN CORPUSCULAR HGB 32.6 pg (27.0-31.0); MEAN CORPUSCULAR HGB CONC 33.4 g/dl (33.0-37.0); MEAN PLATELET VOLUME 10.2 fl (9.6-12.3); MONO # 0.5 10*3/uL (0.1-1.0); NEUT # 4.2 10*3/uL (2.3-7.9); NEUT % 61.9 % (47.0-73.0); PLATELET COUNT AUTOMATED 217 10*3/uL (130-400); RED BLOOD COUNT 4.54 10*6/uL (4.50-5.90); RED CELL DISTRI WIDTH 13.9 % (0-14.5); WHITE BLOOD COUNT 6.8 10*3/uL (4.8-10.8)
[2018-07-22 19:23] LABS: ACT PARTIAL THROMBO TIME 27.2 SECONDS (20.8-31.5); INTERNATIONAL NORM RATIO 1.1 (2.0-3.5)
[2018-07-22 19:28] LABS: ALBUMIN 2.6 gm/dl (3.1-4.5); ALKALINE PHOSPHATASE 52 U/L (45-117); BUN 16 mg/dl (7-24); CHLORIDE 110 mmol/L (98-107); CREATININE 1.26 mg/dL (0.70-1.30); LIPASE 294 U/L (73-393); POTASSIUM 3.6 mmol/L (3.5-5.1); SGOT/AST 11 IU/L (3-35); SGPT/ALT 12 U/L (12-78); SODIUM 143 mmol/L (136-145); VALPROIC ACID (DEPAKENE) 51.3 ug/ml (50-100)
[2018-07-22 19:32] LABS: TROPONIN I < 0.015 ng/ml (<0.045)
== END 2018-07-22 21:50 | disposition home or self-care (01) ==
LOC: ED 18:36
PROVIDERS: Emergency Medicine
DX: S01.81XA Laceration without foreign body of other part of head, initial encounter (principal); S80.211A Abrasion, right knee, initial encounter; R41.0 Disorientation, unspecified; I48.91 Unspecified atrial fibrillation; I10 Essential (primary) hypertension; E78.00 Pure hypercholesterolemia, unspecified; Z79.82 Long term (current) use of aspirin; Z79.899 Other long term (current) drug therapy; Z90.49 Acquired absence of other specified parts of digestive tract; W18.39XA Other fall on same level, initial encounter; Y93.89 Activity, other specified; Y92.89 Other specified places as the place of occurrence of the external cause; Y99.8 Other external cause status

== ENCOUNTER 2018-08-31 13:52 | Inpatient (IN) | payer MEDICARE, OTHER ==
[~2018-08-31] VITALS: Ht 175.2 cm; Wt 75.4 kg
--- NOTE | ~2018-08-31 | EKG ---
[place], [place] ELECTROCARDIOGRAM REPORT NAME: HAIM PERRY UNIT #: [id number] ROOM: 524 DOCTOR: REJI DRAFT REPORT BIRTHDATE: [birth year] [facility] Test Date: 2018-08-31 Test Time: 14:35:17 Pat Name: HAIM PERRY Department: Room: 524 Gender: M Reporting Developer: 18 : 1935 Requested By: JAY DALTON DNP Order Number: [id number] Reading MD: Jose Bailey MD Measurements Intervals [place] Rate: 98 P: [place]: QRS: 33 QRSD: 83 T: 27 QT: 313 QTc: 400 Interpretive Statements Atrial fibrillation with controlled ventricular rates Low voltage, extremity leads Compared to ECG 07/22/2018 18:59:37 Electronically Signed On 09-03-2018 12:01:35 PST by Jose Bailey MD CM:EKGRPT:ELECTROCARDIOGRAM REPORT 1435 1201 JAY DALTON DNP EPIPHANY DRAFT REPORT JAY DALTON DNP
[~2018-08-31 13:52] MED LIST changes: +VITAMIN D-32000 UNI1 PO; -VITAMIN D-32000 UNIT PO
[2018-08-31 14:05] VITALS: BP 132/86
[2018-08-31 14:32] LABS: BASO # 0.1 10*3/uL (0.0-0.1); BASO % 0.7 % (0.0-1.0); EOS # 0.2 10*3/uL (0.0-0.4); EOS % 2.1 % (1.0-4.0); HEMATOCRIT 51.7 % (42.0-52.0); HEMOGLOBIN 17.4 g/dl (14.0-18.0); LYMPH # 1.7 10*3/uL (1.3-4.4); LYMPH % 18.3 % (27.0-41.0); MEAN CELL VOLUME 94.5 fl (80.0-94.0); MEAN CORPUSCULAR HGB 31.8 pg (27.0-31.0); MEAN CORPUSCULAR HGB CONC 33.7 g/dl (33.0-37.0); MEAN PLATELET VOLUME 10.8 fl (9.6-12.3); MONO # 0.9 10*3/uL (0.1-1.0); MONO % 9.5 % (3.0-9.0); NEUT # 6.3 10*3/uL (2.3-7.9); NEUT % 68.9 % (47.0-73.0); PLATELET COUNT AUTOMATED 131 10*3/uL (130-400); RED BLOOD COUNT 5.47 10*6/uL (4.50-5.90); RED CELL DISTRI WIDTH 14.2 % (0-14.5); WHITE BLOOD COUNT 9.2 10*3/uL (4.8-10.8)
[2018-08-31 14:47] LABS: ACT PARTIAL THROMBO TIME 24.7 SECONDS (20.8-31.5); INTERNATIONAL NORM RATIO 1.1 (2.0-3.5)
[2018-08-31 14:49] LABS: ALBUMIN 2.8 gm/dl (3.1-4.5); ALKALINE PHOSPHATASE 62 U/L (45-117); BUN 23 mg/dl (7-24); CHLORIDE 108 mmol/L (98-107); CREATININE 1.22 mg/dL (0.70-1.30); LIPASE 147 U/L (73-393); POTASSIUM 3.9 mmol/L (3.5-5.1); SGOT/AST 31 IU/L (3-35); SGPT/ALT 26 U/L (12-78); SODIUM 140 mmol/L (136-145); TOTAL PROTEIN 7.6 gm/dL (6.4-8.2); TROPONIN I < 0.015 ng/ml (<0.045)
[2018-08-31 14:50] LABS: BILIRUBIN NEGATIVE (NEGATIVE); BLOOD NEGATIVE (NEGATIVE); CLARITY TURBID (CLEAR); COLOR YELLOW (YELLOW); GLUCOSE NEGATIVE (NEGATIVE); KETONE NEGATIVE (NEGATIVE)
[2018-08-31 14:51] LABS: LEUKO ESTERASE 3+ (NEGATIVE); NITRITE NEGATIVE (NEGATIVE); UROBILINOGEN 0.2 E.U./dl (0.2-1.0)
[2018-08-31 14:52] LABS: BACTERIA 4+; WBC TNTC wbc/hpf (0-5)
--- NOTE | 2018-08-31 15:08 | NUR ---
WOUND ASSESSMENT DONE. VERY LIMITED DUE TO PATIENT BEING UNCOOPERATIVE, KICKING PUNCHING, AND SPITTING. LEFT HAND HAS 2 SKIN TEARS TO DORSAL ASPECT OF LEFT HAND. 1 PHOTO TAKEN TO CAPTURE BOTH OF THESE WOUNDS. UNABLE TO ASSESS BUTTOCKS/COCCYX BECAUSE PATIENT WILL NOT ROLL ON EITHER SIDE LEFT HEEL IS RED, BUT AREA BLANCHES.
[2018-08-31 15:46] VITALS: BP 140/78
--- NOTE | 2018-08-31 17:30 | NUR ---
PT STABLE AND READY FOR TRANSPORT TO INPATIENT ROOM 946
[2018-08-31 17:40] VITALS: BP 140/88
--- NOTE | 2018-08-31 17:40 | NUR ---
Time: 1739 A 83 year old MALE admitted to 5E under services of BRIANNA SULLIVAN DO. Pt. arrived via bed from ER. Chief complaint: FALL AT [facility], CONTUSION TO HEAD. CAROLANN TALAVERA
--- NOTE | 2018-08-31 18:00 | NUR ---
PATIENT REFUSED PHOTO OF LEFT HIP, VERY COMBATIVE. ALSO UNABLE TO VIEW RIGHT EAR WOUND TO PHOTO DUE TO PATIENT REFUSING.
[2018-08-31] MEDS ORDERED: HALDOL5 MG/1 ML IM (18:02)
[2018-08-31] MEDS ORDERED: KEFLEX500 M1 PO (18:03)
[2018-08-31] MEDS ORDERED: QUETIAPINE FUMA25 M1 PO (18:04)
[2018-08-31] MEDS ORDERED: RIVASTIGMINE1 EAC2 T (18:05)
[2018-08-31] MEDS ORDERED: MEMANTINE HCL5 MG PO (18:06)
[2018-08-31] MEDS ORDERED: TYLENOL325 M1 PO (18:11)
[2018-08-31] MEDS ORDERED: MILK OF MA400 MG/5 M PO (18:11)
[2018-08-31] MEDS ORDERED: MEGACE 40400 MG/10 PO (18:12)
[2018-08-31] MEDS ORDERED: FLOMAX0.4 MG PO (18:13)
[2018-08-31] MEDS ORDERED: MIRTAZAPINE15 M1 PO (18:14)
[2018-08-31 20:00] VITALS: BP 144/92
--- NOTE | 2018-08-31 20:00 | NUR ---
RESTING IN BED WITH EYES CLOSED; AROUSES EASILY. PT. ASKING ME FOR $5.00. CONFUSED/DISORIENTED. NO DISTRESS NOTED. BED IN LOW POSITION; BED ALARM ON. CALL LIGHT WITHIN REACH.
--- NOTE | 2018-08-31 22:00 | NUR ---
REFUSING MEDICATIONS. PT. REMAINS CONFUSED/DISORIENTED. WILL CONTINUE TO MONITOR.
[2018-09-01] VITALS: BP 142/94
--- NOTE | 2018-09-01 04:00 | NUR ---
RESTING IN BED WITH EYES CLOSED. BED IN LOW POSITION. RESPIRATIONS EASY & UNLABORED ON ROOM AIR. NO DISTRESS NOTED.
--- NOTE | 2018-09-01 10:00 | NUR ---
DR. DENT INFORMED THAT THE PATIENT IS COMBATIVE AND IS REFUSING ALL MEDS AND LAB DRAWS.
[2018-09-01 12:00] VITALS: BP 151/89
--- NOTE | 2018-09-01 12:13 | NUR ---
PHYSICAL THERAPY PT EVAL COMPLETED TODAY ON LEVEL 5: FULL EVALUATION TO FOLLOW. RECOMMEND PT WHILE HERE TO ADDRESS DECREASED STRENGTH AND FUNCTIONAL MOBILITY BUT PATIENT DOES HAVE A HX OF BEING EASILY AGITATED AND COMBATIVE AND PARTICPATION WILL DEPEND ON COOPERATION OF PATIENT. PT EVAL IS MODERATE COMPLEXITY BASED ON CHART REVIEW, TEST RESULTS AND EVALUATION: 62532. D/C REC: RETURN TO [facility] WHEN MEDICALLY STABLE AND WOULD ADVISE SNF TO REGAIN HIGHEST LEVEL OF FUNCTION. THANK YOU FOR REFERRAL MARINO LEE PT
[2018-09-01 16:00] VITALS: BP 139/81
[2018-09-01 20:00] VITALS: BP 151/76
--- NOTE | 2018-09-01 20:00 | NUR ---
PT TRIED TO GET OUT OF BED, ALARM RINGING. REPOSITIONED IN BED. PT PLEASANT AT THIS TIME. TRIED TO GIVE MEDICATIONS. PT ACTUALLY SWALLOWED 2 PILLS BUT PUT IN ICE CREAM AND CRUSHED SOME AND HE STARTED SPITTING OUT PIECES OF MEDICATION. NOT SURE HOW MUCH OF WHAT MEDICATION HE GOT IN HIM. CALL LIGHT IN REACH. LUNGS DIMINISHED T/O. BED ALARM ON. PT PLEASANTLY CONFUSED AT THIS TIME.
--- NOTE | 2018-09-01 21:41 | NUR ---
HAIM PERRY Bert [id number] Please refer to the physician's history and physical for past medical history, comorbid conditions, and allergies. Diagnosis: UTI FACIAL CONTUSION FALL Jose Guadalupe Score: 18,AT RISK WOUND DESCRIPTIONS: Location of the wound: PROXIMAL LEFT DORSAL HAND Type of wound: SKIN TEAR Thickness: Partial Size: 1.5cm X 1.3cm X <0.1cm Tunneling: NONE Undermining: NONE Sinus Tract: NONE Presence of Exudate: NONE Amount: None Color: Red Odor: None Periwound Skin Appearance: Normal Wound edges: CLOSED Pain (associated with wound): DENIED AT TIME OF ASSESSMENT How does patient state this happened? PATIENT UNSURE HOW THIS HAPPENED. If wound is on legs/feet or hands, capillary refill time, pulses, color temp, sensation: CAP REFILL <3 SECONDS. Location of the wound: DISTAL LEFT DORSAL HAND Type of wound: SKIN TEAR Thickness: Partial Size: 2.1cm X 1.1cm X 0.1cm Tunneling: NONE Undermining: NONE Sinus Tract: NONE Presence of Exudate: NONE Amount: None Color: Red Odor: None Periwound Skin Appearance: Normal Wound edges: CLOSED Pain (associated with wound): DENIED AT TIME OF ASSESSMENT How does patient state this happened? PATIENT UNSURE HOW THIS HAPPENED. If wound is on legs/feet or hands, capillary refill time, pulses, color temp, sensation: CAP REFILL < 3 SECONDS PATIENT STARTED SWINGING AND KICKING AT THIS NURSE AND CHRISTOPHER PARK, [facility] WHEN TRYING TO ASSESS OTHER AREAS ON PATIENT. NURSE CARING FOR PATIENT NOTIFIED. Surface the patient is resting on: Position Pro SKIN PREVENTION RECOMMENDATION: 1. Pressure redistribution support surface as appropriate 2. Elevate heels 3. Remove boots/TEDS every shift and reapply 4. Head of bed 30 degrees as tolerated 5. Assess nutrition and hydration 6. Manage moisture 7. Avoid the use of containment devices while in bed 8. Use absorptive products on surfaces limit layers of linens on bed 9. Turn and reposition every 1-2 hours in bed and every 1 hour in chair as tolerated 10. Weight shifts every 15 minutes while up in chair 11. Offloading with pillows or device to keep heels elevated off bed 12. Monitor skin at least every shift 13. Inspect under medical devices twice a day WOUND TREATMENT RECOMMENDATIONS: SKIN TEAR GUIDELINES TO LEFT HAND: CLEANSE WITH NSS APPLY SUREPREP AROUND WOUND ALLOW TO DRY. APPLY HYDROGEL AND COVER WITH OPTIFOAM GENTLE.
--- NOTE | 2018-09-01 22:00 | NUR ---
RESTING IN BED. RESP-EASY AND REGULAR. CALL LIGHT IN REACH. BED ALARM ON.
[2018-09-02] VITALS: BP 138/90
--- NOTE | 2018-09-02 00:20 | NUR ---
PT SLEEPING IN BED. RESP-EASY AND REGULAR. NO SIGNS OF ACUTE DISTRESS NOTED. CALL LIGHT IN REACH. SEE SHIFT ASSESSMENT. BED ALARM ON.
--- NOTE | 2018-09-02 04:00 | NUR ---
PT SLEEPING IN BED. RESP-EASY AND REGULAR. AWAKEN EASILY. PT REPOSITIONED AND INCONTINENT FOR SMALL BOWEL MOVEMENT. PT BECAME ANXIOUS AND COMBATIVE. CHANGED PT WITH HELP AND BED ALARM ON.
--- NOTE | 2018-09-02 06:00 | NUR ---
PT CHANGED INCONTINENT OF URINE. ASSISTED WITH 4 PEOPLE HELP. PT BECOMES COMBATIVE WITH ANY MOVEMENT. CALL LIGHT IN REACH. BED ALARM ON.
--- NOTE | 2018-09-02 06:31 | NUR ---
PHYSICAL THERAPY Nursing screen received. PT orders also received. Thank you. Alayna Cardenas,PT
--- NOTE | 2018-09-02 07:50 | NUR ---
Nursing screen and Occupational Therapy referral received. Thank you. Nazia Rizzo OTR/l
[2018-09-02 08:00] VITALS: BP 104/74
[2018-09-02 08:43] LABS: BASO # 0.1 10*3/uL (0.0-0.1); BASO % 0.6 % (0.0-1.0); EOS # 0.2 10*3/uL (0.0-0.4); EOS % 2.2 % (1.0-4.0); HEMOGLOBIN 16.8 g/dl (14.0-18.0); LYMPH # 2.1 10*3/uL (1.3-4.4); MEAN CELL VOLUME 93.3 fl (80.0-94.0); MEAN CORPUSCULAR HGB CONC 34.3 g/dl (33.0-37.0); MEAN PLATELET VOLUME 10.9 fl (9.6-12.3); MONO # 1.2 10*3/uL (0.1-1.0); MONO % 11.9 % (3.0-9.0); NEUT # 6.2 10*3/uL (2.3-7.9); NEUT % 63.8 % (47.0-73.0); PLATELET COUNT AUTOMATED 137 10*3/uL (130-400); RED BLOOD COUNT 5.25 10*6/uL (4.50-5.90); RED CELL DISTRI WIDTH 14.4 % (0-14.5); WHITE BLOOD COUNT 9.8 10*3/uL (4.8-10.8)
[2018-09-02 08:59] LABS: BUN 18 mg/dl (7-24); CHLORIDE 112 mmol/L (98-107); CREATININE 1.17 mg/dL (0.70-1.30); POTASSIUM 3.9 mmol/L (3.5-5.1); SODIUM 143 mmol/L (136-145)
--- NOTE | 2018-09-02 11:04 | NUR ---
PHYSICAL THERAPY Patient presented to therapy in side-lying position with bed alarm activated. Patient was encouraged to participate in therapy but this GENERAL FARM HAND was unable to persuade patient to participate in therapy. Patient is very confused and wants to stay in bed. Will check back with patient this afternoon. ELLEN BARRETT GENERAL FARM HAND
[2018-09-02 12:00] VITALS: BP 136/84
--- NOTE | 2018-09-02 12:45 | NUR ---
PT IS USP CARE AT [facility] AND CAN RETURN WHEN MEDICALLY STABLE. WILL CONTINUE TO FOLLOW.
--- NOTE | 2018-09-02 14:08 | NUR ---
Occupational Therapy evaluation completed on 5 with full eval to follow. Patient is high complexity level 06739 via chart review, testing and evaluation. Precautions include poor balance, can be combative,+2 assist for bed mobility and transfers, inconsistant feeding performance and use of BUEs, poor ability to follow simple commands. Recommend OT per pOc and return to [facility]. Thank you for this referral. Nazia Rizzo OTR/l
--- NOTE | 2018-09-02 15:14 | NUR ---
PHYSICAL THERAPY Patient presented to therapy in R SIDE-LYING with confusion and no complaints. Patient agrees to therapy session. Patient was identified by name and . Patient transferred R SIDE-LYING to sitting at EOB with MAX A X 2. Patient sat at EOB FOR 3 MINUTES with posterior lean requiring MOD A X 1 to correct lean. Patient also required MAX verbal cues for forward flexion of trunk to sit up straight. Patient attempted STS and this required MOD A X 2 and verbal cues for side-stepping up to head of bed with MOD A X 2 and no assistive device. Patient was transferred back to supine in bed with MAX A X 2. Patient is was very nice , but very confused and unable to follow basic instructions safely. Patient was left in supine in bed with head of bed elevated and bed alarm activated. Call light within reach. Patient was 1:1 with this MEDICAL RECORDS TECHNICIAN for 16 minutes total. ELLEN BARRETT MEDICAL RECORDS TECHNICIAN
[2018-09-02] MEDS ORDERED: PERCOCET 5-3251 EACH PO (15:30)
--- NOTE | 2018-09-02 16:45 | NUR ---
PT DISCHARGED TO [facility] AT THIS TIME. [place] DISCONTINUED. DISCHARGE INSTRUCTIONS SENT IN PACKET WITH EMT.
--- NOTE | 2018-09-02 17:08 | NUR ---
ATTEMPTED TO CALL REPORT TO [facility] BUT WAS PUT ON HOLD. WAITED ON LINE FOR 5 MINUTES AND THEN THE LINE WENT .
--- NOTE | 2018-09-02 17:11 | NUR ---
PATIENTS SON NOTIFIED THAT PATIENT WAS RETURNING TO [facility] AT THIS TIME.
--- NOTE | 2018-09-03 06:58 | NUR ---
PHYSICAL THERAPY CO-SIGN I approve of the Phyical Therapy notes written above. ALENA ALVAREZ PT
== END 2018-09-02 17:11 | DRG 70 ==
LOC: ED 13:52 → EDHOLD 16:47 → 5E 16:47
PROVIDERS: Emergency Medicine; Nurse Practitioner Family; ADMIT Internal Medicine
DX: G93.41 Metabolic encephalopathy (principal); E43 Unspecified severe protein-calorie malnutrition; N39.0 Urinary tract infection, site not specified; F02.81 Dementia in other diseases classified elsewhere, unspecified severity, with behavioral disturbance; L89.310 Pressure ulcer of right buttock, unstageable; R53.1 Weakness; S00.83XA Contusion of other part of head, initial encounter; D72.810 Lymphocytopenia; E87.8 Other disorders of electrolyte and fluid balance, not elsewhere classified; R79.82 Elevated C-reactive protein (CRP); I48.2 Chronic atrial fibrillation; Z66 Do not resuscitate; Z51.5 Encounter for palliative care; N40.0 Benign prostatic hyperplasia without lower urinary tract symptoms; R26.2 Difficulty in walking, not elsewhere classified; G30.9 Alzheimer's disease, unspecified; I10 Essential (primary) hypertension; S09.90XA Unspecified injury of head, initial encounter; W18.30XA Fall on same level, unspecified, initial encounter; Y93.89 Activity, other specified; Y99.8 Other external cause status; Z90.49 Acquired absence of other specified parts of digestive tract; Z79.82 Long term (current) use of aspirin; Z82.3 Family history of stroke; Y92.128 Other place in nursing home as the place of occurrence of the external cause; Z79.899 Other long term (current) drug therapy; Z68.24 Body mass index [BMI] 24.0-24.9, adult

== ENCOUNTER 2018-09-05 15:14 | Inpatient (IN) | payer MEDICARE, OTHER ==
[~2018-09-05] VITALS: Wt 90.7 kg
--- NOTE | ~2018-09-05 | PR ---
[place], [place] PROGRESS NOTE NAME: HAIM PERRY UNIT #: [id number] ROOM: 311 DOCTOR: MAGGI YEBOAH CNP BIRTHDATE: [birth year] DOS: 09/07/2018 CHIEF COMPLAINT: "Hello." SUMMARY OF VISIT: The patient was interviewed as he sat in the dining room area. He reports that he slept okay. Staff reports that the patient continues to have episodes of agitation, especially with hands on care. He appears to be tolerating medication changes at this time. He verbalizes very minimally with me. MENTAL STATUS EXAMINATION: He is alert and oriented to himself. No overt tano or hypomania noted. No delusions or paranoia noted. No auditory or visual hallucinations noted. His mood is calm at this time. His affect is congruent with mood. PLAN: We will increase his morning Risperdal to 1.5 mg for agitation and mood lability. We will continue to encourage the patient to engage in individual and connell milieu activity, continue fall and safety precautions. Plan to return the patient to the least restrictive environment once he is considered psychiatrically stable. Maggi Yeboah CNP CM:PNTRANS [phone] MAGGI YEBOAH CNP 09/08/18 0821 interface
--- NOTE | ~2018-09-05 | PR ---
[place], [place] PROGRESS NOTE NAME: HAIM PERRY UNIT #: [id number] ROOM: 311 DOCTOR: XU BRADLEY MD BIRTHDATE: [birth year] DOS: 09/09/2018 INTERVAL NOTE CHIEF COMPLAINT: "Morning." SUMMARY OF THE VISIT: The patient was interviewed in the dining area. He smiled as I approached, shook my hand and engaged in brief superficial conversation that was somewhat disjointed and fragmented. He was pleasant, however, and offered no complaints. There was no overt agitation or aggression. There was no mood lability, no agitation. Likewise, there were no sedation, somnolence, extrapyramidal symptoms or tardive dyskinesia. MENTAL STATUS: He is alert and oriented to person, possibly place, although doubtful, certainly not time. Mood does seem to be trending towards euthymia. Affect is more appropriate. There is no tano or hypomania. There are no gross psychotic symptoms. Short-term memory is extremely problematic. PLAN: I will maintain his current psychotropic regimen, engage in individual and connell milieu activity and return to the least restrictive environment when psychiatrically stable. XU BRADLEY MD CM:PNTRANS [phone] XU BRADLEY MD 09/09/18 1118 interface
--- NOTE | ~2018-09-05 | PR ---
[place], [place] PROGRESS NOTE NAME: HAIM PERRY UNIT #: [id number] ROOM: 311 DOCTOR: XU BRADLEY MD BIRTHDATE: [birth year] DOS: 09/12/2018 CHIEF COMPLAINT: "Good morning sir, how are you?" SUMMARY OF THE VISIT: The patient was interviewed in the dining area where he was finishing his breakfast. He smiled on approach and shook my hand. He smiled readily and voiced no complaints. There was a little somnolence noted. He has been very much more compliant and pleasant and there has been little to no agitation or aggression. MENTAL STATUS: He is alert and oriented to person, possibly place, not to time. Mood does seem to be strongly trending towards euthymia. Affect is more appropriate. There is no tano, hypomania or psychosis. Short term memory continues to be problematic. PLAN: I will lower his Risperdal to 1 mg in the morning and 2 mg at night, decreasing the morning dose to prevent sedation and somnolence. We will engage in individual and connell milieu activity, returning to the least restrictive environment when psychiatrically stable. XU BRADLEY MD CM:PNTRANS [phone] XU BRADLEY MD 09/13/18 0515 interface
--- NOTE | ~2018-09-05 | PR ---
[place], [place] PROGRESS NOTE NAME: HAIM PERRY UNIT #: [id number] ROOM: 311 DOCTOR: MAGGI YEBOAH CNP BIRTHDATE: [birth year] DOS: 09/08/2018 CHIEF COMPLAINT: "I want a pound of pecans." SUMMARY OF VISIT: The patient was interviewed as he sat in the dining room. He engaged readily in conversation with me reporting that he did have breakfast; however, he wants pecans. He reports that he slept okay. Staff reports that the patient continues to be agitated and aggressive with hands on care. He continues to curse and yell out. MENTAL STATUS: The patient is alert and oriented to self. No tano or hypomania noted. No delusions or paranoia noted. No auditory or visual hallucinations noted. His mood was calm. His affect congruent with mood. His speech was clear. PLAN: We will start Vistaril 25 mg 3 times a day for anxiety, agitation. Monitor for side effects such as sedation. We will continue to encourage the patient to engage in individual and connell milieu activity. Continue fall and safety precautions. Return to the least restrictive environment when psychiatrically stable. Maggi Yeboah CNP CM:PNTRANS [id number] MAGGI YEBOAH CNP 09/08/18 1142 interface
--- NOTE | ~2018-09-05 | DS ---
[place], [place] DISCHARGE SUMMARY [id number] #: [id number] ROOM: 311 DOCTOR: XU BRADLEY MD BIRTHDATE: [birth year] DOS: 09/13/2018 CHIEF COMPLAINT: "Morning." HISTORY OF PRESENT ILLNESS: This is an 83-year-old white male who resides at [facility]. The patient is known to me from his stay there as well as a previous admission here to the [facility]. The patient is admitted now due to extreme mood lability and both verbal and physical combativeness. He has been very labile and very aggressive towards staff. He has been tearing out his own IVs. He has been noncompliant with all aspects of care and episodically noncompliant with medications. Most recently, he was hospitalized on the 5th floor of [facility] following a fall with resultant confusion and a diagnosis of UTIs. These behaviors persisted upon his return and he was putting both himself and others at substantial risk. He is admitted now to rule out organic factors, to stabilize on medication, to engage in individual and connell milieu activity, returning then to the least restrictive environment when psychiatrically stable. SUMMARY OF HOSPITAL COURSE: The patient was admitted to the unit where his Megace was discontinued because of the risk for DVT and pulmonary embolus. The patient is very sedentary in his wheelchair, and I fear that he is at substantial risk. I did place him on Remeron 15 mg at bedtime, which will aid his appetite and did discontinue his Depakote and Seroquel as they were ineffective and started him on Risperdal M-Tab 1 mg in the morning and 2 mg at night, not only should this decrease impulsivity, aggression, and mood lability, but it too will stimulate appetite. His current dose of Exelon was maintained. His Namenda was brought to its maximum dose of 10 mg b.i.d. With these medication changes, he had a rather dramatic and rapid improvement. He was bright and pleasant upon approach, often smiling, shaking my hand and others. There was no verbal or physical aggression. There was no mood lability. Likewise, there were no sedation, somnolence, extrapyramidal symptoms or tardive dyskinesia. The patient had improved sufficiently to return back to [facility]. MENTAL STATUS AT DISCHARGE: He is alert and oriented to person, possibly place, not to time. Mood was strongly trending towards euthymia. Affect is much more appropriate. There is no tano, hypomania or gross psychosis. Short term memory remains problematic. FINAL DIAGNOSES UPON DISCHARGE: Major depression, recurrent; intermittent explosive disorder, and Alzheimer's dementia. DISPOSITION: To return to [facility]. PLAN: All of his prescriptions have been printed and will be sent with him. There is no acute medical issue at the time of discharge and psychiatrically he is stable. [place], [place] DISCHARGE SUMMARY NAME: HAIM PERRY UNIT #: [id number] ROOM: 311 DOCTOR: XU BRADLEY MD BIRTHDATE: [birth year] XU BRADLEY MD CM:DISCHARG [phone] XU BRADLEY MD 09/13/1813 interface
--- NOTE | ~2018-09-05 | PR ---
[place], [place] PROGRESS NOTE [id number] UN[facility] #: [id number] ROOM: 311 DOCTOR: XU BRADLEY MD BIRTHDATE: [birth year] DOS: 09/10/2018 CHIEF COMPLAINT: "You are doing a good job, "I am okay." SUMMARY OF THE VISIT: The patient was interviewed as he was sitting, eating his breakfast. He smiled as we approach. He engaged readily in conversation. Some of it, nonsensical, but for the most part, he was very pleasant and cooperative. Nurses report that yesterday he had a very good day and there was little to no mood lability and no physical aggression. He is tolerating the current medication regimen well and I see no sedation, somnolence, extrapyramidal symptoms or tardive dyskinesia. MENTAL STATUS: He remains alert and oriented to self, unclear place, certainly not time. Mood does seem to be starting to trend towards euthymia. Affect is more appropriate. There is no tano, hypomania or gross psychosis. Short term memory continues to be problematic. PLAN: I will continue his current psychotropic regimen to give it more time to gain total effectiveness. We will monitor for risk, benefit, engage in individual and connell milieu activity, returning then to the least restrictive environment when psychiatrically stable. XU BRADLEY MD CM:PNTRANS 3 XU BRADLEY MD 09/10/18 0925 interface
--- NOTE | ~2018-09-05 | PR ---
[place], [place] PROGRESS NOTE NAME: HAIM PERRY UNIT #: [id number] ROOM: 311 DOCTOR: XU BRADLEY MD BIRTHDATE: [birth year] DOS: 09/11/2018 INTERVAL NOTE CHIEF COMPLAINT: "There you are, good morning." SUMMARY OF THE VISIT: The patient was interviewed as he was finishing his breakfast, he smiled readily. He voiced no complaints. He was bright and pleasant overall. Nurses report similar behavior. There have been no major issues with him. He is tolerating the current medication regimen well. I do see some mild somnolence and slowness. MENTAL STATUS: He is alert and oriented to person, possibly place, not to time. Mood does seem to be trending towards euthymia. Affect is more appropriate. There is no tano or hypomania. No gross psychosis. Short term memory continues to be problematic. PLAN: I will attempt to simplify his regimen and discontinue the hydroxyzine at this point, his Risperdal dose has been titrated upward and it should be effective enough at decreasing his mood lability. This should help overall in decreasing any potential somnolence. We will monitor and support. XU BRADLEY MD CM:PNTRANS [phone] XU BRADLEY MD 09/12/18 0522 interface
--- NOTE | ~2018-09-05 | WRIGHTHP ---
[place], [place] PATIENT HISTORY AND PHYSICAL EXAM [id number] #: [id number] ROOM: 311 DOCTOR: XU BRADLEY MD BIRTHDATE: [birth year] DOS: 09/06/2018 INITIAL PSYCHIATRIC EVALUATION CHIEF COMPLAINT: "Morning." HISTORY OF PRESENT ILLNESS: This is an 83-year-old white male who resides at [facility]. The patient presents to the [facility] with extreme mood lability and both verbal and physical combativeness. The patient has been very labile and has been very aggressive toward staff. He has been tearing out his IVs. He has been noncompliant with all aspects of care and has been episodically noncompliant with his medications. Most recently, he was hospitalized on the 5th floor after a fall with resultant confusion and a diagnosis of UTI. These behaviors continued to persist upon his return to the retirement and it was felt that a psychiatric intervention was warranted. He is admitted now to rule out organic factors to stabilize on medication, to engage in individual and connell milieu activity, returning to the least restrictive environment when psychiatrically stable. PAST MEDICAL HISTORY: Remarkable for debility, head injury that has resolved, metabolic encephalopathy, moderate protein calorie malnutrition, Alzheimer dementia, atrial fibrillation, benign prostatic hyperplasia, hypertension. SOCIAL HISTORY: He does not smoke cigarettes, drink alcohol or use illicit drugs. ALLERGIES: He lists no known allergies. STRENGTHS: Good verbal skills, supportive family. WEAKNESSES: Cognitive decline, poor coping skills. MENTAL STATUS: He is alert and oriented to self only. My exam this morning was somewhat limited because he was somewhat somnolent. He did respond, however, in short simple sentences, voiced short and simple words and did not always finish with the sentence. He was not agitated in any way toward me and there was no mood lability noted. He does process conversation very slowly and short term memory is very problematic. DIAGNOSIS: Major depression, recurrent; intermittent explosive disorder; and Alzheimer's dementia. PLAN: I will go ahead and discontinue his Megace. Because of the risk of DVT or PE, he is very sedentary in his wheelchair and I fear that this is an issue. I have him on Remeron already and we will increase the Risperdal M-Tab to 1 mg in the morning and 2 mg at night. This should also increase appetite. I will maximize out the dose of Namenda bringing it to 10 mg b.i.d. while maintaining his current dose of Exelon. We will monitor and support, engage in individual and connell milieu activity, returning to the least restrictive environment when psychiatrically stable. [place], [place] PATIENT HISTORY AND PHYSICAL EXAM NAME: HAIM PERRY UNIT #: [id number] ROOM: [facility] DOCTOR: XU BRADLEY MD BIRTHDATE: [birth year] XU BRADLEY MD CM:HISPHYS:PATIENT HISTORY AND PHYSICAL EXAMINATION [id number] XU BRADLEY MD 09/06/18 0943 interface
[~2018-09-05 15:14] MED LIST changes: +HALDOL5 MG/1 ML IM; +KEFLEX500 M1 PO; +MEGACE 40400 MG/10 PO; +MEMANTINE HCL5 MG PO; +MILK OF MA400 MG/5 M PO; +MIRTAZAPINE15 M1 PO; +QUETIAPINE FUMA25 M1 PO; +RIVASTIGMINE1 EAC2 T; +TYLENOL325 M1 PO
[2018-09-05] MEDS ORDERED: ASPIRIN CHEWABL81 MG PO (15:55)
[2018-09-05 16:46] VITALS: BP 97/76
--- NOTE | 2018-09-05 16:46 | NUR ---
HAIM PERRY a 83 year old M admitted via stretcher from the [facility] as a voluntary admission. Arrived on unit at 1646. ALLERGIES: NKDA. Vital signs are: 97.9-100-18 97/76. POA, DILLON PERRY, GAVE VERBAL CONSENT FOR the following forms with stated understanding: Authorization For The Release of Medical Information, Consent to Voluntary Admission and Hospitalization, Consent and Release Forms/Receipt of Rights, Acknowledgement of Advance Directive Information, Behavioral Health Consent Form, and Informed Consent of Medications. Admitted under the services of Dr. KIRK DERAS,[facility]. A search was conducted and hazardous articles were removed. Client was oriented to the unit. LESLEY SHINE
[2018-09-05] MEDS ORDERED: B121000 MCG/2 IM (18:10)
--- NOTE | 2018-09-05 18:45 | NUR ---
LYN POSADAS MADE AWARE OF NEW ADMISSION. MADE AWARE OF NEW CONSULT.
[2018-09-05 18:47] LABS: BASO % 0.3 % (0.0-1.0); EOS # 0.2 10*3/uL (0.0-0.4); EOS % 1.9 % (1.0-4.0); HEMOGLOBIN 17.3 g/dl (14.0-18.0); LYMPH # 2.6 10*3/uL (1.3-4.4); LYMPH % 22.9 % (27.0-41.0); MEAN CELL VOLUME 96.2 fl (80.0-94.0); MEAN CORPUSCULAR HGB 31.4 pg (27.0-31.0); MEAN CORPUSCULAR HGB CONC 32.6 g/dl (33.0-37.0); MEAN PLATELET VOLUME 10.4 fl (9.6-12.3); MONO # 0.8 10*3/uL (0.1-1.0); NEUT # 7.7 10*3/uL (2.3-7.9); NEUT % 67.4 % (47.0-73.0); PLATELET COUNT AUTOMATED 204 10*3/uL (130-400); RED BLOOD COUNT 5.51 10*6/uL (4.50-5.90); RED CELL DISTRI WIDTH 14.8 % (0-14.5); WHITE BLOOD COUNT 11.4 10*3/uL (4.8-10.8)
--- NOTE | 2018-09-05 18:57 | NUR ---
PT COMBATIVE, SPITTING AND GRABBING ONTO STAFF. REFUSED COMPLETE SKIN ASSESSMENT AT THIS TIME.
[2018-09-05 19:00] LABS: ALBUMIN 2.4 gm/dl (3.1-4.5); ALKALINE PHOSPHATASE 62 U/L (45-117); BUN 20 mg/dl (7-24); CHLORIDE 110 mmol/L (98-107); CREATININE 1.31 mg/dL (0.70-1.30); POTASSIUM 4.6 mmol/L (3.5-5.1); SGOT/AST 20 IU/L (3-35); SGPT/ALT 23 U/L (12-78); SODIUM 145 mmol/L (136-145); TOTAL PROTEIN 8.1 gm/dL (6.4-8.2)
[2018-09-05 19:06] LABS: VALPROIC ACID (DEPAKENE) 31.1 ug/ml (50-100)
[2018-09-05 19:33] LABS: VITAMIN D, 25-HYDROXY 43.7 ng/mL (30-100)
[2018-09-05 20:00] VITALS: BP 101/60
--- NOTE | 2018-09-05 20:02 | NUR ---
DR. Nando MCELROY HERE TO SEE CLIENT
--- NOTE | 2018-09-05 21:03 | NUR ---
P---CONFUSION AND AGGITATION I---INTRODUCE SELF. EXPLAIN EACH THING THAT I AM GOING TO DO. ALLOW CLIENT TO VENT ANY ISSUES. MONITOR MOOD OF CLIENT. PROVIDE SUPPORT R--IT IS HARD TO GO TO SLEEP. YES I WILL TAKE THE MEDICINE. SMILED AND SHOOK MY HAND P- CONTINUE POSITIVE REINFORCMENT. MONITOR FOR CHANGES IN BEHAVIOR
--- NOTE | 2018-09-05 21:42 | NUR ---
CLIENT PLEASENT AND INTERACTIVE. ASKED HE WOULD LIKE TO LAY DOWN AND HE DECLINED. STATES THIS IS HOW HE LIKES TO SLEEP. BLANKETS READJUSTED. DECLINED ORAL CARE. WILL MONITOR
[2018-09-05] MEDS ORDERED: ATIVAN1 MG PO (21:56)
[2018-09-05] MEDS ORDERED: ATIVAN2 MG/1 ML IM (21:57)
[2018-09-05] MEDS ORDERED: GEODON20 M1 IM (21:58)
--- NOTE | 2018-09-06 03:18 | NUR ---
24 HR chart check completed.
--- NOTE | 2018-09-06 05:16 | NUR ---
SLEPT WELL ALL SHIFT. ONLY A COUPLE AWAKENINGS FOR DRINKS
--- NOTE | 2018-09-06 06:43 | NUR ---
STEEP TENDER HERE TO SEE CLIENT. BILAT HEELS HAVE NO WOUNDS. SHE MEASURED 2 ROUND DARK SPOTS WITH NO DRAINAGE ON LEFT HAND. 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 DRESSING TO HAND CHANGED CLIENTS AGGITATION INCREASED. ABLE TO CHANGE PANTS WITH ASSIST OF 4. LAB HERE AND DRAWN AFTER GIVING [facility] EMOTIONAL SUPPORT. ICE CREAM GIVEN AT CLIENTS REQUEST.
[2018-09-06 07:50] LABS: THYROID STIM HORMONE (HS) 3.47 uIU/ml (0.358-4.75)
--- NOTE | 2018-09-06 08:15 | NUR ---
Treatment Plan meeting with Dr. Wick, RN, AT and Hardboard Grinder. Plan for discharge Next week. 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
--- NOTE | 2018-09-06 09:17 | NUR ---
Clinical Updates faxed to [facility] Attn: Fabi. Spoke with Fabi via telephone at [facility]. 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
[2018-09-06 09:25] VITALS: BP 136/84
--- NOTE | 2018-09-06 11:05 | NUR ---
PHYSICAL THERAPY PAtient evaluated on 3, full evaluation to follow. Continue woth PT as per plan of care with fall, max (A) x 2 and alarm precautions. Will require return to LTC as prior. Patient is high complexity via chart review, tests and evaluation: [id number]. Thank you for this referral. Alayna Cardenas,PT
--- NOTE | 2018-09-06 11:15 | NUR ---
Occupational Therapy evaluation completed on 3 with full eval to follow. Precautions include fall risk, right trunk lean,poor ability to follow simple commands, impaired cognition, pain in left shoulder with PROM, Maximum assist +2 for transfers, assist in all AdLS. Patient is high complexity level 46287 via chart review, evaluation and testing. Recommend OT per POC and return to snf upon d/c. Thank you for this referral. Nazia Rizzo Otr/l
--- NOTE | 2018-09-06 11:20 | NUR ---
DR. HYDE ON UNIT TO ASSESS PATIENT. NOTIFIED OF UNDATED LABS.
--- NOTE | 2018-09-06 11:42 | NUR ---
AM GROUP THERAPY PT DID NOT ATTEND MORNING GROUP THERAPY. PT WAS IN QUIET ROOM TO LESSEN STIMULATION PT WAS JUST ADMITTED AND STILL BE ACCLIMATED TO THE UNIT. PT IS UNABLE AT THIS TIME TO PARTICIPATE IN ASSESSMENT OR GROUP ACTIVITIES DUE TO COGNITIVE IMPAIRMENT AND AGGRESSIVE BEHAVIORS. WILL ATTEMPT ATTANDANCE AT A LATER GROUP TIME.
--- NOTE | 2018-09-06 12:30 | NUR ---
psychosocial hx completed this date.
--- NOTE | 2018-09-06 12:45 | NUR ---
HAIM PERRY Bert [id number] Please refer to the physician's history and physical for past medical history, comorbid conditions, and allergies. Diagnosis: INTERMITTENT EXPLOSIVE DISORDER Jose Guadalupe Score: 14,MODERATE RISK WOUND DESCRIPTIONS: Location of the wound: left hand proximal Thickness: Full Size: 1.5cm x 1.7cm x <0.1cm Tunneling: none Undermining: none Sinus Tract: none Presence of Exudate: Serosanguineous Amount: Light Color: Brown, red Odor: None Periwound Skin Appearance: Normal Wound edges: approximated Pain (associated with wound): none at time of assessment How does patient state this happened? pt unable to state how this happened Location of the wound: left hand distal Thickness: Full Size: 2.0cm x 1.3cm x 0.1cm Tunneling: none Undermining: none Sinus Tract: none Presence of Exudate: Serosanguineous Amount: Light Color: Brown, red Odor: None Periwound Skin Appearance: Normal Wound edges: approximated Pain (associated with wound): none at time of assessment How does patient state this happened? pt unable to state how this happened Location of the wound: right ear Thickness: Full Size: 1.0cm x 1.6cm x 0.1cm Tunneling: none Undermining: none Sinus Tract: none Presence of Exudate: Serosanguineous Amount: Light Color: Brown, red Odor: None Periwound Skin Appearance: Normal Wound edges: approximated Pain (associated with wound): none at time of assessment How does patient state this happened? pt unable to state how this happened Patient buttocks and coccyx is red and blanchable at time of assessment. No open areas noted at this time. No drainage noted. Surface the patient is resting on: Proform SKIN PREVENTION RECOMMENDATION: 1. Pressure redistribution support surface as appropriate 2. Elevate heels 3. Remove boots/TEDS every shift and reapply 4. Head of bed 30 degrees as tolerated 5. Assess nutrition and hydration 6. Manage moisture 7. Avoid the use of containment devices while in bed 8. Use absorptive products on surfaces limit layers of linens on bed 9. Turn and reposition every 1-2 hours in bed and every 1 hour in chair as tolerated 10. Weight shifts every 15 minutes while up in chair 11. Offloading with pillows or device to keep heels elevated off bed 12. Monitor skin at least every shift 13. Inspect under medical devices twice a day WOUND TREATMENT RECOMMENDATIONS: Wheelchair cushion when oob. Heel raiser pro boots while in bed. Full thickness guidelines: Cleanse left hand and right ear with nss and apply sureprep around the wound therahoney to wound bed and cover with optifoam gentle and bandaid to the ear. Cleanse coccyx and buttocks with soap and water and apply hydraguard every shift and prn for soiling for prevention.
--- NOTE | 2018-09-06 12:51 | NUR ---
Recommend follow up for wound care in outpatient setting patient being discharge to another facility at this time.
--- NOTE | 2018-09-06 14:04 | NUR ---
Dr. Chávez notified of wound care recommendations.
--- NOTE | 2018-09-06 14:10 | NUR ---
ASSISTED PATIENT TO SHOWER ROOM AND ASSIST ONTO SHOWER CHAIR, PATIENT WAS RESISTIVE DURING HANDS ON CARE. ONCE PLACE IN SHOWER, HAD PATIENT CHECK WATER TEMPERATURE TO HIS LIKING. PATIENT TOTAL ASSIST WITH SHOWER WITH 2 STAFF MEMBERS. AFTER SHOWER, PATIENT DRIED OFF AND ASSISTED TO BACK TO DAVID CHAIR. WHILE DRESSING PATIENT, HE BEGIN TO SPIT AT STAFF PUNCH AND ATTEMPT TO KICK NURSE AND PINCH MILIEU. AFTER PATIENT WAS DRESSED. OBSERVED SKIN TEAR TO PATIENT'S LEFT ELBOW, CLEANSE WITH NS AND APPLIED FOAM BORDER DRESSING. PATIENT ASSISTED INTO THE QUIET ROOM FOR CHANGE OF ENVIRONMENT AND PROVIDED SPACE; EFFECTIVE PATIENT SITTING IN GERICHAIR, EYES CLOSED AND RESTING QUITELY.DR LYNCH, JOSÉ YANG, ANCILLARY SERVICES MANAGER THERAPY AND POA NOTIFIED. VITALS: 97.6, 111/77, 16, 81, 96 % ON ROOM AIR. PATIENT IS ALERT TO PERSON WITH CONFUSION, NO RESPONSE TO INTERNAL STIMULI OBSERVED, NO VOICED STATEMENTS OF HI/SI OR PAIN. 2 PERSON ASSIST WITH ACTIVITIES OF DAILY LIVING, INCONTINENT OF BOWEL AND BLADDER. SET UP FOR MEALS WITH ENCOURAGEMENT TO EAT MEALS, INTAKES VARIES AND DRINKS ENSURE DRINKS. MEDICATION COMPALINT. Q 15 MINUTE SAFETY CHECKS MAINTAINED. CONTINUE TO MONITOR FOR AGGRESSION WITH HAND ON CARE, PROVIDE ONE ON ONE AND REDIRECTION NEEDED. P: AGGRESSION WITH STAFF DURING HANDS ON CARE, HITTING, KICKING, PUNCHING AND SPITTING I: ONE ON ONE PROVIDED, REDIRECTION, AFTER GETTING DRESSED ASSISTED TO QUIET ROOM FOR CHANGE OF ENVIRONMENT R: CHANGE OF ENVIRONMENT EFFECTIVE, PATIENT RESTING WITH EYES CLOSED P: CONTINUE TO MONITOR FOR AGGRESSION, PROVIDE ONE ON ONE, REDIRECTION AND CHANGE OF ENVIRONMENT.
--- NOTE | 2018-09-06 15:32 | NUR ---
PM GROUP THERAPY PT DID NOT ATTEND AFTERNOON GROUP THERAPY. PT IS NOT SUITABLE FOR GROUP AT THIS TIME DUE TO AGGRESSION AND COMBATIVENESS. PT WAS IN QUIET ROOM TO LESSEN STIMULATION. WILL CONTINUE TO MONITOR PT WHEN APPROPRIATE FOR A GROUP SETTING.
[2018-09-06 19:52] VITALS: BP 121/89
--- NOTE | 2018-09-06 22:40 | NUR ---
P: CONFUSION I: GIVE STEP BY STEP INSTRUCTIONS OF CARE BEING PROVIDED. 1:1 TO ALLOW TIME FOR PT TO VENT FEELINGS. MONITOR MOOD. ENCOURAGED MEDICATION COMPLIANCE. R: MEDICATION COMPLIANT. NO COMBATIVE BEHAVIORS NOTED. PT CONTINUES TO BE CONFUSED. P: CONITNUE TO GIVE STEP BY STEP INSTRUCTIONS. ENCOURAGE MEDICATION COMPLAINCE. AND PROVIDE 1:1 TO ALLOW TIME FOR PT TO VENT. Q15 MINUTE SAFETY CHECKS MAINTAINED. NO COMBATIVE BEHAVIORS NOTED THIS SHIFT.
--- NOTE | 2018-09-07 04:41 | NUR ---
24 HR chart check completed.
--- NOTE | 2018-09-07 06:28 | NUR ---
PT SLEPT APPROXIMATELY 8 HOURS THIS SHIFT. Q15 MINUTE SAFETY CHECKS MAINTAINED.
[2018-09-07 08:16] VITALS: BP 134/79
--- NOTE | 2018-09-07 11:15 | NUR ---
DR. HYDE ON UNIT TO ASSESS PATIENT.
--- NOTE | 2018-09-07 11:23 | NUR ---
AM GROUP/EXERCISE/STORY/ART PT ATTENDED GROUP AND PARTICIPATED TO BEST OF ABILITY BY LOOKING THROUGH A MAGAZINE. PT PLEASANTLY CONFUSED. PT DID NOT BECOME COMBATIVE AT THIS TIME. PT WILL CONTINUE TO BE ENCOURAGED TO ATTEND FUTURE GROUP SESSIONS.
--- NOTE | 2018-09-07 15:16 | NUR ---
PATIENT IS ALERT TO PERSON ONLY WITH CONFUSION. LONG/SHORT TERM MEMORY DEFICITS. MOOD IS PLEASANT, CALM DEMEANOR; BECOMES ANXIOUS WITH HANDS ON CARE, NOT ABLE TO COMPREHEND SIMPLE DIRECTIONS, CAN BE RESISTIVE GRABBING ON TO HAND RAILS WHILE TRYING TO ASSIST PATIENT TO SIT ON TOILET. 3 PERSON ASSIST WITH TOILETING. NO RESPONSE TO INTERNAL STIMULI OBSERVED. NO VOICED STATEMENT OF HI/SI OR PAIN. 1 PERSON ASSIST WITH ALL OTHER ACTIVITIES OF DAILY LIVING, INCONTINENT OF BOWEL AND BLADDER. SET UP FOR MEALS, VERBAL CUEING AND ASSIST WITH MEALS NEEDED. INTERACTIVE WITH STAFF AND ATTENDED GROUP SESSION TODAY. MEDICATION COMPLIANT; Q 15 MINUTE SAFETY CHECKS MAINTAINED. NO AGGRESSION OR SPITTING NOTED TODAY. P: ANXIOUS AND RESISTIVE WITH HANDS ON CARE. I: PROVIDE ONE ON ONE, SIMPLE VERBAL CUEING DURING ASSISTING WITH TOILETING NEEDS. R: EFFECTIVE P: WILL CONTINUE TO PROVIDE SIMPLE VERBAL CUEING, 3 ASSIST WITH TOILETING NEEDS.
--- NOTE | 2018-09-07 15:49 | NUR ---
DR. OLMEDO NOTIFIED OF PATIENT HAVING 4 EPISODES OF LIQUID DIARRHEA IN THE PAST 24 HOURS.
[2018-09-07 19:56] VITALS: BP 123/88
--- NOTE | 2018-09-07 21:53 | NUR ---
24 HR chart check completed.
--- NOTE | 2018-09-08 02:49 | NUR ---
P: COMBATIVE WITH HOC I: REDIRECTION, EXPLAINED SIMPLE STEP BY STEP INSTRUCTIONS ON CARE BEING PROVIDED, ASSIST PT IN IDENTIFYING CALMING TECHNIQUES. R: PT REMAINS COMBATIVE WITH HOC. ATTEMPTEDO HELP PT DEEP BREATHE AND OTHER CALMING TECHNIQUES, TECHNIQUES INEFFECTIVE. P: CONTINUE TO REDIRECT PT AND EXPLAIN STEP BY STEP INSTRUCTIONS ON CARE BEING PROVIDED. CONTINUE TO ASSIST PT IN IDENTIFYING CALMING TECHNIQUES. Q15 MINUTE SAFETY CHECKS MAINTAINED.
--- NOTE | 2018-09-08 06:05 | NUR ---
PT SLEPT APPROXIMTELY 6 HOURS THIS SHIFT. Q15 MINUTE SAFETY CHECKS MAINTAINED.
[2018-09-08 08:01] VITALS: BP 123/89
--- NOTE | 2018-09-08 10:53 | NUR ---
DR. HYDE ON UNIT TO ASSESS PATIENT.
--- NOTE | 2018-09-08 15:49 | NUR ---
PM GROUP/MOVIE/ART PT ATTENDED AND PARTICIPATED TO BEST OF ABILITY. PT FIGETED WITH MARKERS AND SENSORY TRAY WELL WATCHED MOVIE HERE AND THERE. PT NOT COMBATIVE BUT CONFUSED AND STATES "DO YOU SEE MY PHONE NUMBER HERE?" HE POINTS TO MARKERS. PT WILL CONTINUE TO BE ENCOURAGED TO ATTEND AND PARTICIPATE TO BEST OF ABILITY.
--- NOTE | 2018-09-08 16:49 | NUR ---
PATIENT IS ALERT TO PERSON ONLY WITH CONFUSION. SHORT/GUIDE SETTER MEMORY NOTED. NO RESPONSE TO INTERNAL STIMULI OBSERVED. NO VOICE STATEMENTS OF HI/SI OR PAIN. 3 ASSIST WTIH TOILETING NEEDS DUE TO AGGRESSION AND PATIENT NOT ABLE TO COMPREHEND SIMPLE DIRECTION WHEN STAFF TRYING TO GUIDE HIM TO SIT ON TOILET AND DRESSING. PATIENT ATTEMPTED TO SPIT TOWARD NURSE DURING HANDS ON CARE. SET UP FOR MEALS, INTAKES VARY WITH ADEUQATE FLUID. PATIENT FEED HIMSELF TODAY, INPROVEMENT NOTED. PATIENT REFUSED MEDICAITONS THIS AFTERNOON WITH MULTIPLE ATTEMPT TO TAKE MEDS. PATIENT SPTI MEDICAITON ON FLOOR. Q 15 MINUTE SAFETY CHECKS MAINTAINED. UP IN DAVID CHAIR FOR COMFORT AND POOR SAFETY AWARENESS DUE TO COGNITION. ONE OUTBURST OF AGGRESSION NOTED DURING SHIFT. CONTINUE TO MONITOR FOR AGGRESSION; PROVIDE ONE ON ONE AND REDIRECTION NEEDED. P: AGGRESSION DURING HANDS ON CARE I: PROVIDE SIMPLE VERBAL DIRECTION AND ASSIST DURING TOILETING NEEDS R: PATIENT ATTTEMPTED TO PINCH, GRAB AND SPIT ON STAFF P: CONTINUE TO PROVIDE SIMPLE DIRECTION WITH CARE AND PROVIDE SPACE AFTERWARDS
--- NOTE | 2018-09-08 17:24 | NUR ---
Shift chart check completed.
[2018-09-08 20:00] VITALS: BP 110/88
--- NOTE | 2018-09-08 22:29 | NUR ---
P-CONFUSION,AGGRESSIVE WITH STAFF,MEDICATION NON-COMPLIANT. I-REDIRECT AND REORIENT TO REALITY. PROVIDE SIMPLE DIRECTION WITH ALL HANDS ON CARE WHEN PATIENT IS MOST AGGRESSIVE. EDUCATE PATIENT FOR MEDICATION COMPLIANCE. R-PATIENT LESS AGGRESSIVE WITH STAFF WITH HS CARE. PATIENT REFUSED MEDICATION AFTER EDUCATION WAS GIVEN. UNABLE TO PROVIDE MUCH EDUCATION DUE TO PATIENT'S CONFUSION. P-CONTINUE TO MONITOR MOOD AND BEHAVIORS. REDIRECT AND REORIENT NEEDED. CONTINUE TO ENCOURAGE MEDICATION COMPLIANCE.
--- NOTE | 2018-09-09 00:06 | NUR ---
24 HR chart check completed.
--- NOTE | 2018-09-09 05:52 | NUR ---
Patient slept approx. 7 hours throughout shift.
--- NOTE | 2018-09-09 06:59 | NUR ---
HAIM PERRY [id number] Please refer to the physician's history and physical for past medical history, comorbid conditions, and allergies. Diagnosis: INTERMITTENT EXPLOSIVE DISORDER Jose Guadalupe Score: 14,MODERATE RISK WOUND DESCRIPTIONS: Location of the wound: left elbow Type of wound: skin tear Thickness: Partial Size: 0.3cm x 1.1cm x 0.1cm Tunneling: none Undermining: none Sinus Tract: none Presence of Exudate: Serosanguineous Amount: Light Color: Red Odor: None Periwound Skin Appearance: Normal Wound edges: approximated Pain (associated with wound): none at time of assessment How does patient state this happened? pt unable to state how this happened Surface the patient is resting on: Proform SKIN PREVENTION RECOMMENDATION: 1. Pressure redistribution support surface as appropriate 2. Elevate heels 3. Remove boots/TEDS every shift and reapply 4. Head of bed 30 degrees as tolerated 5. Assess nutrition and hydration 6. Manage moisture 7. Avoid the use of containment devices while in bed 8. Use absorptive products on surfaces limit layers of linens on bed 9. Turn and reposition every 1-2 hours in bed and every 1 hour in chair as tolerated 10. Weight shifts every 15 minutes while up in chair 11. Offloading with pillows or device to keep heels elevated off bed 12. Monitor skin at least every shift 13. Inspect under medical devices twice a day WOUND TREATMENT RECOMMENDATIONS: Skin tear guidelines: Cleanse left elbow with nss and apply sureprep around the wound hydrogel to wound bed and cover with optifoam gentle.
--- NOTE | 2018-09-09 07:05 | NUR ---
PHYSICAL THERAPY Patient seen this am 1:1 for therapy visit and was sitting up in Omayra chair outside his room following patient care, upon therapist arrival. Patient presented with decreased focus on task and needed constant redirection to complete all therapy task. Patient performed several sit to stand transfers at rail in hallway, MAX A, tolerating < 20 seconds each trial and demonstrating increased B knee flexion with POOR upright posture. Patient attempted seated B LE therex, completing 5 reps each with MAX verbal, visual / tactile cueing, AAROM, all planes. Patient fatigues quickly and remained in Omayra chair near activity room table awaiting breakfast. Patient with lap tray and body alarm under U staff Supervision upon completion all therapy. Will continue per POC as tolerated, total treatment time 14 minutes. Zeferino Weaver, PROJ MGR
[2018-09-09 07:18] VITALS: BP 118/67
--- NOTE | 2018-09-09 08:10 | NUR ---
ON UNIT TO ASSESS PT, UPDATE GIVEN.
--- NOTE | 2018-09-09 08:10 | NUR ---
Treatment Plan meeting with Dr. Wick, RN, AT and Bus Dispatcher [employer]. Plan for discharge at the end of the week. Pt. is [facility].
--- NOTE | 2018-09-09 11:01 | NUR ---
Clinical Updates faxed to [facility].
--- NOTE | 2018-09-09 11:15 | NUR ---
ON UNIT TO ASSESS PT, MADE AWARE PT REFUSED ALL AM MEDICATIONS, NNO RECEIVED.
--- NOTE | 2018-09-09 11:17 | NUR ---
P-COMBATIVE WITH HOC, AGITATION, AND PERIODS OF PHYSICAL AGGRESSION. ALERT AND CONFUSED PER USUAL. I-REDIRECTION, FREQUENT REORIENTATION, DIVERSIONAL ACTIVITIES R-UNABLE TO REORIENT OR PRESENT REALITY DUE TO COGNITION. DIVERSION AND REDIRECTION INEFFECTIVEL. REFUSED ALL AM MEDICATIONS. P-ENCOURAGE GROUPS
--- NOTE | 2018-09-09 11:21 | NUR ---
Dr. Chun notified of wound care recommendations.
--- NOTE | 2018-09-09 11:37 | NUR ---
AM GROUP/GAME/MUSIC THERAPY PT ATTENDED GROUP BUT DID NOT PARTICIPATE DUE TO SLEEPING IN DAVID CHAIR. PT WILL CONTINUE TO ATTEND GROUP AND BE MONITORED.
--- NOTE | 2018-09-09 16:15 | NUR ---
PM GROUP/ART/MUSIC PT ATTENDED GROUP BUT UNABLE TO PARTICIPATE DUE TO SLEEPING IN DAVID CHAIR. PT WILL CONTINUE TO ATTEND GROUP AND BE ENCOURAGED TO PARTICIPATE TO BEST OF ABILITY.
[2018-09-09 19:48] VITALS: BP 121/67
--- NOTE | 2018-09-09 21:38 | NUR ---
P--CONFUSED I--REORIENTED TO PLACE AND TIME WITHOUT SUCCESS. ALLOWED CLIENT TO TALK HE WANTED TO. MEDICATION EDUCATION PROVIDED. EMOTIONAL SUPPORT PROVIDED. R--CLIENT TOOK MEDICATION WHOLE, SMILING AND SAYING YES AND YES. INTERACTIVE AND FRIENDLY I--CLOSE MONITORING FOR SAFETY. CONTINUE EMOTIONAL SUPPORT AND MONITOR FOR CHANGES IN BEHAVIOR
--- NOTE | 2018-09-10 00:26 | NUR ---
24 HR chart check completed.
--- NOTE | 2018-09-10 06:07 | NUR ---
SLEPT UNINTERUPTED FOR OVER 6 HOURS. MOVED SELF IN CHAIR. NO PROBLEMS NOTED
--- NOTE | 2018-09-10 07:30 | NUR ---
PHYSICAL THERAPY Patient seen this am 1:1 for therapy visit and was semi reclined in activity room chair upon therapist arrival. OT business assistant was present for observation only during entire treatment this morning as patient performed several sit to stand transfers at rail in hallway. Patient was MAX A for sit to stand with use of B UE support, tolerating < 30 seconds static stand and demonstrating Poor upright posture. Patient tolerated B seated HS stretch due to increased tightness and completed additional sit to stand with no improvement in standing posture. Patient returned to [facility] chair and remained in activity room with lap tray / body alarm under [facility] staff Supervision. Will continue per POC as tolerated, total treatment time 14 minutes. Zeferino Weaver, PARADI TENDER
[2018-09-10 07:35] VITALS: BP 118/69
--- NOTE | 2018-09-10 08:30 | NUR ---
Treatment Plan meeting with Dr. Wick, RN, AT, and Motel Clerk. Plan for discharge Sunday with Return to [facility].
--- NOTE | 2018-09-10 11:50 | NUR ---
PERSONAL DAILY GOAL PT IS UNABLE TO ESTABLISH A PDG DUE TO COGNITIVE IMPAIRMENT.
--- NOTE | 2018-09-10 11:51 | NUR ---
AM GROUP THERAPY PT WAS PRESENT FOR MORNING GROUP THERAPY BUT UNABLE TO PARTICIPATE DUE TO COGNITIVE IMPAIRMENT AND HIGH LEVEL OF CONFUSION. PT IS VERY PLEASANT WHEN SPOKEN TO. PT EXHIBITED NO AGGRESSION OR AGITATION DURING GROUP. PT WILL CONTINUE TO ATTEND GROUP THERAPY AND BE MONITORED FOR CHANGES IN BEHAVIOR.
--- NOTE | 2018-09-10 15:34 | NUR ---
PM GROUP THERAPY/INTERPERSONAL INTERACTIONS PT WAS PRESENT FOR AFTERNOON GROUP THERAPY AND WAS DOZING IN A DAVID CHAIR FOR MOST OF GROUP. PT AWOKE AND WAS CONFUSED BUT VERY PLEASANT. I SAT WITH HIM FOR A WHILE AND CONVERSED. PT HAD DIFFICULTY FINDING WORDS AND WOULD TRAIL OFF MID SENTECE. PT EXHIBITED NO AGITATION OR AGGRESSION DURING GROUP. WILL CONTINUE TO MONITOR PT AND TO ENCOURAGE INTERACTION.
--- NOTE | 2018-09-10 18:00 | NUR ---
PATIENT IS ALERT TO PERSON WITH CONFUSION; MOOD IS STABLE. NO RESPONSE TO INTERNAL STIMULI OBSERVED. NO VOICED STATEMENTS OF HI/SI OR PAIN. COOPERATIVE WITH HANDS OF CARE TODAY. MUCH IMPROVEMENT. 2-PERSON ASSIST WITH ACTIVITIES OF DAILY LIVING, INCONTINENT OF BOWEL AND BLADDER. SET UP FOR MEALS, TAKES ARE GOOD WITH ADEQUATE FLUIDS. Q 15 MINUTE SAFETY CHECKS MAINTAINED. MEDICAITON COMPLIANT. CONTINUE TO MONITOR FOR AGGRESSION, PROVIDE ONE ON ONE AND REDIRECTION NEEDED.
[2018-09-10 20:00] VITALS: BP 140/75
--- NOTE | 2018-09-11 03:53 | NUR ---
P: CONFUSION I: ENCOURAGE MEDICATION COMPLAINCE. PROVIDE 1:1 TO ALLOW TIME FOR PT TO VOICE FEELINGS AND CONCERNS. REORIENT PT. R: PT REMAINS CONFUSED AT THIS TIME P: CONTINUE TO ENCOURAGE MEDICATION COMPLIANCE AND PROVIDE 1:1 TO ALLOW TIME FOR PT TO VOICE FEELINGS AND CONCERNS. REORIENT WHEN NEEDED.
--- NOTE | 2018-09-11 06:00 | NUR ---
24 HR chart check completed.
--- NOTE | 2018-09-11 06:03 | NUR ---
PT SLEPT APPROXIMATELY 9 HOURS THIS SHIFT. Q15 MINUTE SAFETY CHECKS MAINTAINED.
--- NOTE | 2018-09-11 07:05 | NUR ---
PHYSICAL THERAPY Patient seen this am for therapy visit and was semi reclined in Omayra chair upon therapist arrival. Patient was located in activity room and OT mailing machine assistant was present for observation only throughout entire treatment. Patient presented with increased B hamatring tightness and tolerated seated prolonged HS stetch to increased ROM without c/o with L side > R side. Patient performed seated B LE therex, AAROM due to increased lethargic behaviour, x 10 reps each and need several v/c's to complete all task with additional tactile cues for performance. Patient remained in Omayra chair with lap tray and body alarm under [facility] staff Supervision. Will continue per POC as tolerated, total treatment time 14 minutes. Zeferino Weaver, LINUX SYSTEMS ANALYST
[2018-09-11 08:23] VITALS: BP 138/101
--- NOTE | 2018-09-11 08:30 | NUR ---
Discharge Plan remains unchanged with plans to discharge Patient on Sunday. Pt. to return to [facility].
--- NOTE | 2018-09-11 10:40 | NUR ---
HAIM PERRY a 83 year old M admitted via stretcher from the [facility] as a emergency 72 hr. hold admission. Arrived on unit at 1040. ALLERGIES: NKDA. Vital signs are: 97.6-70-18 138/101. PT UNABLE TO SIGN ANY ADMISSION PAPERWORK DUE TO COGNITION. Admitted under the services of Dr. KIRK DERAS,[facility]. A search was conducted and hazardous articles were removed. Client was oriented to the unit.
--- NOTE | 2018-09-11 10:41 | NUR ---
PT UNABLE TO PARTICIPATE IN ADMISSIONS ASSESSMENTS DUE TO CONFUSION.
--- NOTE | 2018-09-11 11:50 | NUR ---
AM GROUP THERAPY/SELF-CARE PT WAS PRESENT FOR MORNING GROUP THERAPY BUT UNABLE TO PARTICIPATE DUE TO COGNITIVE IMPAIRMENT AND LEVEL OF CONFUSION. PT EXHIBITED NO AGITATION OR AGGRESSION DURING GROUP. PT WILL CONTINUE TO ATTEND GROUP THERAPY.
--- NOTE | 2018-09-11 12:49 | NUR ---
P-ORIENTED TO SELF ONLY, OTHERWISE CONFUSED. PLEASANT AND COOOPERATIVE WITH STAFF AND HOC. NO COMBATIVE BEHAVIORS OR AGGRESSION NOTED. I-FREQUENT REORIENTATION T/O THE SHIFT AND NEEDED. R-UNABLE TO REORIENT PT DUE TO COGNITION, PT UNABLE TO RECALL OR RETAIN ANY NEW INFORMATION GIVEN. P-ENCOURAGE GROUPS.
[2018-09-11 15:09] LABS: CLARITY CLOUDY (CLEAR); COLOR YELLOW (YELLOW)
[2018-09-11 15:10] LABS: BILIRUBIN NEGATIVE (NEGATIVE); BLOOD 1+ (NEGATIVE); GLUCOSE NEGATIVE (NEGATIVE); KETONE NEGATIVE (NEGATIVE); LEUKO ESTERASE 3+ (NEGATIVE); NITRITE NEGATIVE (NEGATIVE); SPECIFIC GRAVITY 1.005 (1.005-1.030); UROBILINOGEN 0.2 E.U./dl (0.2-1.0)
[2018-09-11 15:12] LABS: CALCIUM OXALATE CRYSTALS 1+
[2018-09-11 15:13] LABS: BACTERIA 2+; EPITHELIAL CELLS 0-2; MUCOUS TRACE; WBC 16-20 wbc/hpf (0-5)
--- NOTE | 2018-09-11 15:43 | NUR ---
PM GROUP THERAPY/RELAXATION TECHNIQUES PT DID NOT ATTEND AFTERNOON GROUP THERAPY. PT WAS UNDERGOING A PROCEEDURE AND WAS UNABLE TO ATTEND.
--- NOTE | 2018-09-11 17:11 | NUR ---
PT HAS BEEN SLEEPING FOR APPROXIMATELY 3 HOURS THIS EVENING. REFUSED TO GET UP FOR DINNER.
[2018-09-11 20:51] VITALS: BP 103/88
--- NOTE | 2018-09-11 23:43 | NUR ---
24 HR chart check completed.
--- NOTE | 2018-09-12 01:31 | NUR ---
P: CONFUSION. PT ALERT TO SELF ONLY I: ATTEMPTED TO REORIENT PT. ENCOURAGE MEDICATION COMPLIANCE. PROVIDE 1:1 TO ALLOW TIME FOR PT TO VOICE FEELINGS AND CONCERNS. R: PT REMAINS PLEASANTLY CONFUSED. MEDICATION COMPLIANT WITHOUT DIFFICULTY. P: CONTINUE TO REORIENT PT. ENCOURAGE MEDICATION COMPLIANCE. PROVIDE 1:1 TO ALLOW TIME FOR PT TO VOICE CONCERNS AND FEELINGS. Q15 MINUTE SAFETY CHECKS MAINTAINED.
--- NOTE | 2018-09-12 06:46 | NUR ---
PT SLEPT APPROXIMATELY 8 HOURS THIS SHIFT. Q15 MINUTE SAFETY CHECKS MAINTAINED.
--- NOTE | 2018-09-12 07:10 | NUR ---
PHYSICAL THERAPY Patient seen this am for therapy visit and was sitting up in his activity room Omayra chair upon therapist arrival. Patient seen in hallway with [facility] staff present for entire treatment time and tolerated seated B hamstring stretch with 10 second hold x 10 reps, followed by seated AAROM, B LE therex, all planes x 10 reps each to improve ROM / strength. Patient also completed several sit to stand transfers at handrail, MAX A, with B UE support, tolerating < 20 seconds static stand each trial. Patient demonstrates Poor upright posture, increased B knee flexion and fatigues quickly. Patient returned to Omayra chair with lap tray, body alarm for safety and remained in activity room under [facility] staff Supervision. Will continue per POC as tolerated, total treatment time 24 minutes. Zeferino Weaver, GROUND CREW LINES PERSON
[2018-09-12 07:59] VITALS: BP 141/85
--- NOTE | 2018-09-12 08:15 | NUR ---
Treatment Plan meeting with Dr. Wick, RN, AT, SW and Mail Room Clerk. Plan for discharge Sunday. Pt. to return to [facility].
--- NOTE | 2018-09-12 09:40 | NUR ---
P-ORIENTED TO SELF ONLY, OTHERWISE PLEASANTLY CONFUSED PER USUAL. MILDLY AGIATED AND AGGRESSIVE WITH HOC. I-REORIENT FREQUENTLY T/O THE DAY AND NEEDED. DIVERSIONAL ACTIVITIES IF NECESSARY. R-PT UNABLE TO REAIN NEW INFORMATION OR REORIENTATION FOR LONG PERIODS OF TIME DUE TO COGNITION AND ST/LT MEMORY DEFICITS. DIVERSIONAL ACTIVITIES EFFECTIVE FOR SHORT PERIODS OF TIME. REMAINS PLEASANTLY CONFUSED MOST OF THE MORNING. P-ENCOURAGE GROUPS
--- NOTE | 2018-09-12 12:07 | NUR ---
AM GROUP/MUSIC THERAPY PT WAS PRESENT FOR MORNING GROUP THERAPY SLEEPING RECLINED IN A DAVID CHAIR. PT WOULD AWAKE, SMILE AND RETURN TO NAPPING. PT IS UNABLE TO PARTICIPATE IN GROUP DUE TO COGNITIVE IMPAIRMENT AND HIGH LEVEL OF CONFUSION.
--- NOTE | 2018-09-12 12:08 | NUR ---
PERSONAL DAILY GOAL PRESENT PT WITH REALITY ORIENTATION AND MEMORY BRIDGE FROM PAST TO PRESENT
--- NOTE | 2018-09-12 12:39 | NUR ---
AND ON UNIT TO SEE PT AT THIS TIME, AWARE OF URINE CULTURE RESULTS.
--- NOTE | 2018-09-12 14:15 | NUR ---
PT RESTING IN DAY ROOM IN CHAIR AT THIS TIME. PLEASANTLY CONFUSED AND COOPERATIVE.
--- NOTE | 2018-09-12 15:50 | NUR ---
PM GROUP/CREATIVE OUTLETS PT WAS PRESENT FOR AFTERNOON GROUP AND WAS SLEEPING RECLINED IN A DAVID CHAIR. PT AWOKE AND WAS BROUGHT TO THE TABLE TO JOIN THE GROUP. PT IS VERY PLEASANT AND SMILES WHEN SPOKEN TO. PT IS UNABLE TO EXPRESS HIMSELF EASILY HE LOOSES HIS TRAIN OF THOUGHT AND CANNOT FIND HIS WORDS. PT EXHIBITED NO AGITATION OR AGGRESSION DURING GROUP. PT IS SET TO BE DISCHARGED FROM THE UNIT TOMORROW
--- NOTE | 2018-09-12 16:08 | NUR ---
Spoke with Patient P.O.ANajma Parra, notified of plans to discharge Sunday09/13/18 with [facility] to transport with picker/puller time 2:00 p.m.
--- NOTE | 2018-09-12 16:31 | NUR ---
ALL WOUND CARE TREATEMENTS COMPLETED PER ORDERS. PT TOLERATED WELL.
--- NOTE | 2018-09-12 18:13 | NUR ---
PT RESTING IN BED WITH EYES CLOSED AT THIS TIME.
[2018-09-12 20:21] VITALS: BP 140/80
--- NOTE | 2018-09-13 02:26 | NUR ---
24 HR chart check completed.
--- NOTE | 2018-09-13 05:48 | NUR ---
PT ALERT TO PERSON OTHERWISE CONFUSED. ST/LT MEMORY DEFICITS. STABLE MOOD. NO HALLUCINATIONS OR DELUSIONS NOTED. CALM. NO COMBATIVENESS NOTED WITH HOC. Q15 MINUTE SAFETY CHECKS MAINTAINED. NO SPITTING, HITTING, OR KICKING NOTED. MEDICATION COMPLIANT WITHOUT DIFFICULTY. CONTINUE TO MONITOR BEHAVIORS ON Q15 MINUTE SAFETY CHECKS.
--- NOTE | 2018-09-13 06:23 | NUR ---
PT SLEPT 12 HOURS THIS SHIFT. Q15 MINUTE SAFETY CHECKS MAINTAINED.
[2018-09-13 08:10] VITALS: BP 130/73
--- NOTE | 2018-09-13 08:15 | NUR ---
Treatment Plan meeting with Dr. Wick, RN, AT, and Senior Client Advisor. Plan for discharge Today. Pt. to return to [facility].
--- NOTE | 2018-09-13 08:33 | NUR ---
SPOKE WITH DR.A. SHAH AT [phone] RE: PT DISCHARGE FOR TODAY. NO FURTHER ORDERS AT THE TIME.
[2018-09-13] MEDS ORDERED: EXELON13.3 MG/21 T (08:49)
[2018-09-13] MEDS ORDERED: MIRTAZAPINE15 M2 PO (08:49)
[2018-09-13] MEDS ORDERED: LACTULOSE20 GM/30 M PO (08:50)
[2018-09-13] MEDS ORDERED: MEMANTINE HCL10 MG PO (08:50)
[2018-09-13] MEDS ORDERED: RISPERIDONE M-TA1 MG BC ×2 (08:50)
--- NOTE | 2018-09-13 09:18 | NUR ---
Discharge Follow Up, Dr. Wick to follow patient at facility 1x month or PRN and Dr. Santos to follow up for Primary Care 1 x month or PRN.
--- NOTE | 2018-09-13 10:15 | NUR ---
SUSAN OSORIO ON UNIT TO ASSESS PT, UPDATE PROVIDED.
--- NOTE | 2018-09-13 11:36 | NUR ---
AM GROUP THERAPY NO AM GROUP DUE TO NEW PT ASSESSMENTS AND 1:1
[2018-09-13] MEDS ORDERED: PERCOCET 5-3251 EACH PO (11:58)
--- NOTE | 2018-09-13 12:35 | NUR ---
PT REFUSED DISCHARGE PHOTOS.
--- NOTE | 2018-09-13 13:21 | NUR ---
NURSE TO NURSE REPORT GIVEN TO LYN AT [facility]. 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 PT CALM, MOOD IS STABLE. NO HALLUCIANTIONS OR DELUSIONS NOTED. PT DENIES ANY HOMIICDAL/SUICIDAL THOUGHTS. PT UP TO GERICHAIR, D/T UNSTEADY GAIT. PT CONTINENT OF BOWEL AND BLADDER EPISDOES OF INCONTINENCE NOTED, CARE PROVIDED NEEDED. PLAN IS TO DISCHARGE PT TO [facility].
--- NOTE | 2018-09-13 13:58 | NUR ---
PT D/C TO [facility]IA [facility].
--- NOTE | 2018-09-13 15:17 | NUR ---
PHYSICAL THERAPY CO-SIGN I approve of the Phyical Therapy notes written above. ALENA ALVAREZ PT
== END 2018-09-13 13:56 | DRG 56 ==
LOC: 3N 15:14
PROVIDERS: ADMIT Psychiatry & Neurology Psychiatry
DX: G30.9 Alzheimer's disease, unspecified (principal); G93.41 Metabolic encephalopathy; N17.0 Acute kidney failure with tubular necrosis; F33.9 Major depressive disorder, recurrent, unspecified; E44.0 Moderate protein-calorie malnutrition; N39.0 Urinary tract infection, site not specified; F63.81 Intermittent explosive disorder; F02.80 Dementia in other diseases classified elsewhere, unspecified severity, without behavioral disturbance, psychotic disturbance, mood disturbance, and anxiety; I48.91 Unspecified atrial fibrillation; N40.0 Benign prostatic hyperplasia without lower urinary tract symptoms; I10 Essential (primary) hypertension; Z82.3 Family history of stroke; E87.8 Other disorders of electrolyte and fluid balance, not elsewhere classified; I95.9 Hypotension, unspecified; Z91.14 Patient's other noncompliance with medication regimen; Z68.24 Body mass index [BMI] 24.0-24.9, adult

== ENCOUNTER 2018-10-02 03:53 | Inpatient (IN) | payer MEDICARE, OTHER ==
[~2018-10-02] VITALS: Ht 177.8 cm; Wt 92.7 kg
--- NOTE | ~2018-10-02 | CON ---
[place], [place] REPORT OF CONSULTATION [id number] #: [id number] ROOM: 421 DOCTOR: PHD RUBY BABIN BIRTHDATE: [birth year] DOS: 10/03/2018 HISTORY OF PRESENT ILLNESS: The patient is an 83-year-old male referred by the hospitalist due to combative behavior. He is presently on the 4th floor at [facility]. He resides at [facility] and was most recently discharged from the [facility] on 09/13 where he had been demonstrating similar behaviors. He is a poor historian. Per his medical records, he is and has 2 sons. He worked at a [employer] and r[employer]ali in the past. There is no history of substance abuse. PAST MEDICAL HISTORY: Alzheimer's dementia, atrial fibrillation, BPH, combative behavior, essential primary hypertension, general weakness, inability to ambulate due to multiple joints. MEDICATIONS: Exelon, vitamin D, Flomax, aspirin, Proscar, Namenda, Risperdal M-Tab, Remeron, Zocor, Lovenox, Zofran, Tylenol, Percocet. The patient was awake, alert and oriented to person. He was lying in bed in no apparent distress. Mood was stable and affect was blunted. He did not exhibit any aggressiveness in the evaluation. He did not appear to be responding to any internal stimuli. Speech was within normal limits. He appeared to be confused with poor insight and judgment. DIAGNOSES: Intermittent explosive disorder, major neurocognitive disorder, possibly due to Alzheimer's disease. PLAN: I consulted with Dr. Wick. He agreed to admit the patient to the [facility] once he is medically stable for further psychiatric stabilization. Thank you very much for this consult. Jelena Babin, PhD CM:CONSTR:REPORT OF CONSULTATION 1716 10/03/18 2368 interface
[~2018-10-02 03:53] MED LIST changes: +ASPIRIN CHEWABL81 MG PO; +ATIVAN1 MG PO; +ATIVAN2 MG/1 ML IM; +B121000 MCG/2 IM; +EXELON13.3 MG/21 T; +GEODON20 M1 IM; +LACTULOSE20 GM/30 M PO; +RISPERIDONE M-TA1 MG BC
[2018-10-02 03:57] VITALS: BP 124/88
--- NOTE | 2018-10-02 04:34 | NUR ---
PATIENT HAS SOME REDDENED AREA TO THE BUTTOCK BUT IT IS BLANCHABLE.. NO OPEN WOUNDS.. NO PHOTOS TAKEN
[2018-10-02 04:42] LABS: BASO % 0.2 % (0.0-1.0); EOS % 0.1 % (1.0-4.0); HEMATOCRIT 49.6 % (42.0-52.0); HEMOGLOBIN 16.5 g/dl (14.0-18.0); LYMPH # 0.8 10*3/uL (1.3-4.4); LYMPH % 6.3 % (27.0-41.0); MEAN CELL VOLUME 92.7 fl (80.0-94.0); MEAN CORPUSCULAR HGB 30.8 pg (27.0-31.0); MEAN CORPUSCULAR HGB CONC 33.3 g/dl (33.0-37.0); MEAN PLATELET VOLUME 9.4 fl (9.6-12.3); MONO # 0.5 10*3/uL (0.1-1.0); MONO % 4.4 % (3.0-9.0); NEUT # 10.9 10*3/uL (2.3-7.9); PLATELET COUNT AUTOMATED 302 10*3/uL (130-400); RED BLOOD COUNT 5.35 10*6/uL (4.50-5.90); RED CELL DISTRI WIDTH 14.9 % (0-14.5); WHITE BLOOD COUNT 12.4 10*3/uL (4.8-10.8)
[2018-10-02 04:56] LABS: ALBUMIN 2.5 gm/dl (3.1-4.5); CREATININE 1.72 mg/dL (0.70-1.30); POTASSIUM 3.6 mmol/L (3.5-5.1); TOTAL PROTEIN 7.8 gm/dL (6.4-8.2)
--- NOTE | 2018-10-02 05:51 | NUR ---
INFORMED NURSE AT [facility] THAT PATIENT IS GOING TO BE ADMITTED.
[2018-10-02 08:00] VITALS: BP 134/68
--- NOTE | 2018-10-02 09:09 | NUR ---
CCAA 83, admitted to , under the services of RICH Alcocer DO with a diagnosis of RENAL FAILURE. Chief complaint is UNABLE TO ANSWER. Patient arrived via bed from ER. Monitor applied. Initial assessment completed. Vital signs taken and recorded. RICH ALCOCER DO notified of admission to the unit. Orders received. See assessment for past medical history, medications and allergies. Patient and/or family oriented to unit. [facility] visitation policy reviewed. Clothing/patient valuable form completed. JUANCHO MANDUJANO
--- NOTE | 2018-10-02 09:30 | NUR ---
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
--- NOTE | 2018-10-02 10:48 | NUR ---
HAIM PERRY Bert [id number] Please refer to the physician's history and physical for past medical history, comorbid conditions, and allergies. Diagnosis: DIARRHEA, DEHYDRATION Jose Guadalupe Score: 13,MODERATE RISK WOUND DESCRIPTIONS: Location of the wound: RIGHT UPPER EAR Type of wound: STAGE 4 Thickness: Partial Size: 1.5cm X 1.5cm X 0.1cm Tunneling: NONE Undermining: NONE Sinus Tract: NONE Presence of Exudate: Serous Amount: Light Color: Red Odor: None Periwound Skin Appearance: Erythema Wound edges: APPROXIMATED Pain (associated with wound): DENIED AT TIME OF ASSESSMENT How does patient state this happened? PATIENT UNSURE HOW THIS HAPPENED. PATIENT'S COCCYX AND BUTTOCKS RED AND BLANCHABLE. SCAR NOTED TO LEFT BUTTOCK. Surface the patient is resting on: Isoflex SKIN PREVENTION RECOMMENDATION: 1. Pressure redistribution support surface as appropriate 2. Elevate heels 3. Remove boots/TEDS every shift and reapply 4. Head of bed 30 degrees as tolerated 5. Assess nutrition and hydration 6. Manage moisture 7. Avoid the use of containment devices while in bed 8. Use absorptive products on surfaces limit layers of linens on bed 9. Turn and reposition every 1-2 hours in bed and every 1 hour in chair as tolerated 10. Weight shifts every 15 minutes while up in chair 11. Offloading with pillows or device to keep heels elevated off bed 12. Monitor skin at least every shift 13. Inspect under medical devices twice a day WOUND TREATMENT RECOMMENDATIONS: STAGE 2 GUIDELINES RIGHT EAR: CLEANSE WITH NSS APPLY SUREPREP AND ALLOW TO DRY. APPLY HYDROGEL AND COVER WITH DRY DRESSING. HYDRAGUARD TO COCCYX AND BUTTOCK DAILY AND PRN SOILAGE. HEEL RAISER PRO BOOTS WHILE IN BED. CHAIR CUSHION WHEN OUT OF BED.
[2018-10-02 12:00] VITALS: BP 132/88
[2018-10-02 16:00] VITALS: BP 155/82
--- NOTE | 2018-10-02 18:55 | NUR ---
PERCOCET GIVEN FOR C/O GENERALIZED DISCOMFORT. WILL MONITOR.
[2018-10-02 20:00] VITALS: BP 136/85
[2018-10-03] VITALS: BP 141/83
[2018-10-03 08:00] VITALS: BP 136/89
--- NOTE | 2018-10-03 08:30 | NUR ---
Patient updated clinicals faxed to [facility] for review; patient is [facility] care and can return when medically stable for discharge.
--- NOTE | 2018-10-03 09:00 | NUR ---
case management visits with patient, patient is a [facility] res[facility] of [facility] and will return when medically stable for discharge,
[2018-10-03 12:00] VITALS: BP 125/86
--- NOTE | 2018-10-03 12:43 | NUR ---
ISAAK FROM [facility] [place] NOTIFIED OF BEHAVIORAL HEALTH CONSULT.
--- NOTE | 2018-10-03 15:52 | NUR ---
DR BLOUNT IN TO SEE PT AT THIS TIME.
[2018-10-03 16:00] VITALS: BP 114/77
--- NOTE | 2018-10-03 19:30 | NUR ---
TOOK OVER CARE OF PT AT THIS TIME. PT RESTING IN BED, RESPIRATIONS EASY AND UNLABORED ON ROOM AIR. PT SLEEPING. NOT AWAKENED AT THIS TIME. WILL CONTINUE TO MONITOR. CALL LIGHT IN REACH.
[2018-10-03 19:59] VITALS: BP 112/78
--- NOTE | 2018-10-03 21:30 | NUR ---
ATTEMPT TO GIVE PT HS MEDICATION AT THIS TIME. PT REFUSES TO TAKE MEDICATION AND YELLS AT NURSING STAFF TO "LEAVE HIM ALONE AND JUST LET HIM SLEEP". 1:1 AND REDIRECTION GIVEN, INEFFECTIVE. WILL TRY AT A LATER TIME TO ASSESS PT AND GIVE MEDICATION. NO S/S OF DISTRESS NOTED. IV FLUIDS INFUSING, SAFETY MEASURES IN PLACE. CALL LIGHT IN REACH.
--- NOTE | 2018-10-04 | NUR ---
ATTEMPTED TO GIVE PT MEDICATION FOR THIRD TIME, PT AGREES TO TAKE MEDICATION BUT ONLY WILLINGLY TOOK HALF. PT REFUSES TO HAVE VITAL SIGNS OBTAINED BY PATIENT ATTENDANT. IV FLUIDS INFUSING INTO LEFT HAND. IV SITE PATENT, DRESSING C/D/I. PT ALERT TO SELF, CONFUSED AND AGITATED. PT REFUSES TO ALLOW NURSE TO LISTEN TO LUNG SOUNDS AND COMPLETE ASSESSMENT. PT YELLS OBSCENITIES AT NURSING STAFF. 1:1 AND REDIRECTION GIVEN. WILL ATTEMPT TO ASSESS PT AT A LATER TIME. NO S/S OF RESPIRATORY OR CARDIAC DISTRESS AT THIS TIME. RESPIRATIONS EASY AND UNALBORED ON ROOM AIR. PT STATES THAT " HE IS TIRED AND JUST WANTS TO SLEEP". WILL CONTINUE TO MONITOR. ALL SAFETY MEASURES IN PLACE. CALL LIGHT IN REACH.
--- NOTE | 2018-10-04 06:51 | NUR ---
PT REFUSES AM LABWORK. PHYSICIAN AWARE.
[2018-10-04 08:00] VITALS: BP 108/62
--- NOTE | 2018-10-04 12:10 | NUR ---
LAB REATTEMPTED TO DRAW PT, PT REFUSED AND BECAME AGITATED. UNABLE TO OBTAIN.
--- NOTE | 2018-10-04 14:00 | NUR ---
PT RESTING IN BED/SLEEPING, NO DISTRESS NOTED. BED ALARM MAINTAINED.
--- NOTE | 2018-10-04 15:53 | NUR ---
PT STATING HE ACHES ALL OVER, MEDICATED WITH PERCOCET PER PRN ORDER. WILL MONITOR FOR EFFECTIVENESS.
[2018-10-04 16:00] VITALS: BP 117/73
--- NOTE | 2018-10-04 16:35 | NUR ---
Recommend follow up for wound care in outpatient setting patient being discharge to another facility at this time.
--- NOTE | 2018-10-04 17:10 | NUR ---
Discharge instructions reviewed with patient/family. Patient receptive and verbalizes understanding. Follow-up care arranged. Written instructions given to patient/family. IV site removed. Pt discharged to [facility]. Nurse to nurse report given to JAMEL Maya
== END 2018-10-04 17:30 | disposition home health service (06) | DRG 393 ==
LOC: ED 03:53 → 4E 05:30 → EDHOLD 05:30 → 4E 07:18
PROVIDERS: Student in an Organized Health Care Education/Training Program; ADMIT Internal Medicine
DX: K52.1 Toxic gastroenteritis and colitis (principal); N17.0 Acute kidney failure with tubular necrosis; E43 Unspecified severe protein-calorie malnutrition; R65.11 Systemic inflammatory response syndrome (SIRS) of non-infectious origin with acute organ dysfunction; F02.81 Dementia in other diseases classified elsewhere, unspecified severity, with behavioral disturbance; E87.2 Acidosis; E87.0 Hyperosmolality and hypernatremia; E86.0 Dehydration; T47.3X5A Adverse effect of saline and osmotic laxatives, initial encounter; A08.4 Viral intestinal infection, unspecified; D72.823 Leukemoid reaction; R73.9 Hyperglycemia, unspecified; E87.8 Other disorders of electrolyte and fluid balance, not elsewhere classified; Z66 Do not resuscitate; F63.81 Intermittent explosive disorder; Z51.5 Encounter for palliative care; R06.82 Tachypnea, not elsewhere classified; D72.9 Disorder of white blood cells, unspecified; D72.810 Lymphocytopenia; I48.2 Chronic atrial fibrillation; N40.0 Benign prostatic hyperplasia without lower urinary tract symptoms; G30.9 Alzheimer's disease, unspecified; I10 Essential (primary) hypertension; Y92.89 Other specified places as the place of occurrence of the external cause; Z90.49 Acquired absence of other specified parts of digestive tract; Z79.82 Long term (current) use of aspirin; Z79.899 Other long term (current) drug therapy; Z68.25 Body mass index [BMI] 25.0-25.9, adult

== ENCOUNTER 2018-10-04 13:18 | Inpatient (IN) | payer MEDICARE, OTHER ==
[~2018-10-04] VITALS: Ht 177.8 cm; Wt 80.5 kg
--- NOTE | ~2018-10-04 | PR ---
[place], [place] PROGRESS NOTE NAME: HAIM PERRY UNIT #: [id number] ROOM: 311 DOCTOR: XU BRADLEY MD BIRTHDATE: [birth year] DOS: 10/09/2018 CHIEF COMPLAINT: "I will take some more juice." SUMMARY OF THE VISIT: The patient was interviewed as he was finishing his breakfast in the dining room. The patient stopped and engaged readily in conversation. For the most part, he was bright and gregarious. He offered no complaints. Nurses report that his behavior for the most part has been fairly redirectable and he has had no major outbursts. There has been very little aggression or resistance to care. He is outwardly tolerating the current medication regimen without somnolence, sedation, extrapyramidal symptoms or tardive dyskinesia. MENTAL STATUS: He remains alert and oriented to self, uncertain place, certainly not time. Mood does seem to be trending towards euthymia. Affect is more appropriate. There is no tano, hypomania or gross psychosis. He does process conversation slowly and short term memory continues to be problematic. PLAN: I will go ahead and adjust his nighttime Risperdal from 1 mg to 1.5 mg at bedtime to further attempt to stabilize mood and decrease impulsivity. We will monitor for risk, benefits, engage in individual and connell milieu activity, returning then to the least restrictive environment when psychiatrically stable. XU BRADLEY MD CM:PNTRANS [id number] XU BRADLEY MD 10/09/18 1349 interface
--- NOTE | ~2018-10-04 | WRIGHTHP ---
[place], [place] PATIENT HISTORY AND PHYSICAL EXAM [id number] UN[facility] #: [id number] ROOM: 311 DOCTOR: MAGGI YEBOAH CNP BIRTHDATE: [birth year] DOS: 10/05/2018 CHIEF COMPLAINT: "I can't do anything." HISTORY OF PRESENT ILLNESS: This is an 83-year-old white male who currently resides at [facility]. He presented to the [facility] Emergency Department after recent discharge from the medical floor for dehydration and hypernatremia secondary to diarrhea. He has been combative and confused on the medical floor. He has been refusing to have lab work, he is refusing his medications. He is agitated with staff and he has continued to yell obscenities. The patient has now been admitted to the Behavioral Health Unit to rule out any further organic factors in an attempt to stabilize the patient on medication. We will engage the patient in individual and connell milieu activity. We will maintain fall and safety precautions and plan to return the patient to the least restrictive environment once he is considered psychiatrically stable. PAST MEDICAL HISTORY: Remarkable for Alzheimer's dementia, atrial fibrillation, benign prostatic hyperplasia, combative behavior, essential primary hypertension, general weakness and inability to ambulate due to multiple joints. SOCIAL HISTORY: The patient does not drink alcohol. He does not smoke and he does not use illicit drugs. STRENGTHS: The patient is able to participate in his ADLs. WEAKNESSES: The patient has Alzheimer's dementia. MENTAL STATUS: The patient is alert and oriented to person, not place or time. He is pleasant and cooperative with me. There are no signs or symptoms of tano or hypomania. No delusions or paranoia noted at this time. No psychotic symptoms noted. No auditory or visual hallucinations noted. The patient's mood is calm. His affect is congruent with mood. There are no signs of agitation or aggression at this time. DIAGNOSIS: Intermittent explosive disorder. PLAN: We will continue the patient's Exelon 13.3 mg daily. Continue Namenda 10 mg twice a day. Continue Risperdal 2 mg at bedtime and continue Remeron 15 mg at bedtime. We will start the patient on Depakene syrup 250 mg 3 times a day for mood lability. We will plan to check a VPA level on 10/07/2018. Continue to encourage the patient to engage in individual and connell milieu activity. Continue fall and safety precautions and plan to return the patient to the least restrictive environment once he is considered psychiatrically stable. [place], [place] PATIENT HISTORY AND PHYSICAL EXAM NAME: HAIM PERRY UNIT #: [id number] ROOM: 311 DOCTOR: MAGGI YEBOAH CNP BIRTHDATE: [birth year] Maggi Yeboah CNP CM:HISPHYS:PATIENT HISTORY AND PHYSICAL EXAMINATION [id number] MAGGI YEBOAH CNP 10/05/18 1435 interface
--- NOTE | ~2018-10-04 | PR ---
[place], [place] PROGRESS NOTE NAME: HAIM PERRY UNIT #: [id number] ROOM: 311 DOCTOR: XU BRADLEY MD BIRTHDATE: [birth year] DOS: 10/07/2018 CHIEF COMPLAINT: "Oh, I will have some more orange juice please." SUMMARY OF THE VISIT: The patient was interviewed as he was sitting in a Omayra chair, eating his breakfast. He had most of it already eaten. He stopped and engaged in conversation that was mainly nonsensical. He did not make much sense and did not always respond appropriately to the questions I asked until I did ask him if he would like something more to drink when he clearly said I would like some more orange juice please. He was bright and pleasant. He was not agitated or aggressive in any manner, although nurses do report that just earlier this morning he attempted to grab at them and instead grabbed his own arm and squeezed himself rather hard. He continues to have episodes of agitation. MENTAL STATUS: He is alert and oriented to self. Unclear if he realizes he is in the hospital. He is certainly not oriented to time. Mood does seem to be still labile. Affect inappropriate. His responses are short, simple, at times nonsensical. There was no overt hypomania or tano and there is no elicited paranoia or delusions. Short term memory continues to be problematic. PLAN: I will discontinue Depakene. His blood level was very subtherapeutic and we have repeatedly discontinued the Depakene due to ineffectiveness. Most recently, he was stabilized on Risperdal in returning back to [facility] and he has been restarted on this and has tolerated it well. In an effort to bring the blood level into a higher level, I will load him with Invega Sustenna 156 mg IM today and then later repeat the same dose again and utilize the same dose on a monthly basis. We will engage in individual and connell milieu activity, returning then to the least restrictive environment when psychiatrically stable. XU BRADLEY MD CM:PNTRANS [id number] XU BRADLEY MD 10/07/18 1151 interface
--- NOTE | ~2018-10-04 | DS ---
[place], [place] DISCHARGE SUMMARY [id number] UN[facility] #: [id number] ROOM: 311 DOCTOR: XU BRADLEY MD BIRTHDATE: [birth year] DOS: 10/14/2018 CHIEF COMPLAINT: "I can't do anything." HISTORY OF PRESENT ILLNESS: This is an 83-year-old white male who is known to me from previous admissions here to the [facility] as well as his stay at [facility]. The patient presents to [facility] Emergency Room after a recent discharge from the medical floor for dehydration and hypernatremia, secondary to diarrhea. The patient has been very combative and confused on the medical floor. He has been refusing to have lab work. He is refusing his medication and is very agitated with the staff. He continues to yell obscenities at them and also has been physically threatening. Given this change in behavior, it was felt that a further inpatient stay at the [facility] was warranted. SUMMARY OF HOSPITAL COURSE: The patient was admitted to the unit where he was continued on his Exelon and Namenda. Exelon was at its maximum dose of 13.3 mg daily as was Namenda 10 mg twice daily. The patient was continued on his Remeron 15 mg at bedtime and he was also continued on Risperdal 2 mg at bedtime, Depakene was added to help augment the effectiveness of the antipsychotic. Eventually as time progressed, it became evident that this was not needed and the Depakene were discontinued. Dose of the nighttime Risperdal was also lowered from 2 mg to 1.5 mg to lessen any potential sedation. He was very pleasant and cooperative on the psychiatric floor, became very evident that much of his behavior at the [facility] was directly related to his perception of needing to protect his who was a resident in his room. We did make the recommendation to both the long-term care facility and the patient's family that either they move to people apart or before they engage in any type of hands on care with his that they removed Haim and bring him to the TV room or someplace else, so that he is not there to witness her having hands on care. The patient did extremely well here and return to [facility] where I will be the treating psychiatrist. MENTAL STATUS AT DISCHARGE: He is alert and oriented to self only. He is bright and pleasant upon approach. He was very gregarious and shakes my hand readily. There is no agitation or aggression, no mood lability noted. No EPS, tardive dyskinesia or other side effects were noted. FINAL DIAGNOSES: Intermittent explosive disorder and major depression, recurrent, along with Alzheimer's dementia. DISPOSITION: The patient is to return to [facility]. At the time of discharge, he was medically and psychiatrically stable. No acute processes were present. His prescriptions have been printed and will be sent with him and I will be the treating psychiatrist. [place], [place] DISCHARGE SUMMARY NAME: HAIM PERRY [id number] UNIT #: [id number] ROOM: 311 DOCTOR: XU BRADLEY MD BIRTHDATE: [birth year] XU BRADLEY MD CM:JOHN [id number] XU BRADLEY MD 10/14/18 1138 interface
--- NOTE | ~2018-10-04 | PR ---
[place], [place] PROGRESS NOTE NAME: [id number] UNIT #: [id number] ROOM: 311 DOCTOR: XU BRADLEY MD BIRTHDATE: [birth year] DOS: 10/10/2018 CHIEF COMPLAINT: "Oh there you are, how are you this morning." SUMMARY OF THE VISIT: The patient was resting quietly in a Omayra chair. As I approached and awoke him, he smiled readily and was very gregarious. When a male Nurses' aide also approached him, he joked very openly with him. Nurses have noted that he is only episodically resistant to care and most of his episodes previous to this do seem to occur when hands on care is being delivered to his . I have discussed the case further with social media executive who has been in contact with both family members as well as [facility] and both are now considering some type of change in the environment such as the couple or removing the patient prior to having his receive hands on care. At this point, he does seem to be tolerating the current medication regimen and is trending significantly towards improvement. MENTAL STATUS: He is alert and oriented to self, unclear place, certainly not time. Mood for the most part when approached is pleasant and jovial. His episodes of agitation and aggression have decreased in both frequency and intensity. He remains grossly confused, however. PLAN: I will renew his p.r.n. Ativan should he require intervention. I have discussed the case with the treatment team and we will attempt to utilize male caregivers with him as much as possible in case this is also a preference for him and could limit then the amount of p.r.n. interventions he requires. I would as much as possible like to change his environment rather than give him extra medication that may not be required. We will engage in individual and connell milieu activity, returning then to the least restrictive environment when psychiatrically stable. XU BRADLEY MD CM:PNTRANS 1 4 XU BRADLEY MD 10/11/18214 interface
--- NOTE | ~2018-10-04 | PR ---
[place], [place] PROGRESS NOTE NAME: HAIM PERRY UNIT #: [id number] ROOM: 311 DOCTOR: XU BRADLEY MD BIRTHDATE: [birth year] DOS: 10/11/2018 CHIEF COMPLAINT: "Oh take some more orange juice, thank you." SUMMARY OF THE VISIT: The patient was interviewed as he was reclining in a Omayra chair in the dining area. He engaged quickly in conversation. He smiled readily and shook my hand. He was pleasant and cooperative. Nurses report some resistance to care persists. This does seem to worsen in the evening. Otherwise, he is improving slowly. MENTAL STATUS: He is alert and oriented to self, unclear place, certainly not time. Mood does seem to be gradually trending towards euthymia. Affect is more appropriate. There is no tano, hypomania, or psychosis. Short term memory continues to be problematic. PLAN: I will renew his p.r.n. Ativan should he require intervention. Engage in individual and connell milieu activity, returning to the least restrictive environment when psychiatrically stable. XU BRADLEY MD CM:PNTRANS [id number] XU BRADLEY MD 10/12/18 0017 interface
--- NOTE | ~2018-10-04 | PR ---
[place], [place] PROGRESS NOTE NAME: HAIM PERRY UNIT #: [id number] ROOM: 311 DOCTOR: MAGGI YEBOAH CNP BIRTHDATE: [birth year] DOS: 10/06/2018 CHIEF COMPLAINT: The patient was very somnolent. SUMMARY OF VISIT: I attempted to interview the patient as he sat in the dining room at lunch time. The patient was very somnolent at this time and did not respond to my verbal or tactile cues. Staff reports that the patient has remained combative with hands on care and has been verbally aggressive; however, he was sleeping. He slept okay last night, but has been somewhat somnolent this morning after breakfast. MENTAL STATUS EXAMINATION: The patient displays no tano or hypomania. No delusions or paranoia noted. No psychotic symptoms noted. No auditory or visual hallucinations noted. No aggression or agitation noted at this time. PLAN: VPA level is ordered for tomorrow, 10/07/2018. We will decrease the patient's Risperdal to 1 mg at bedtime to see if this improves a.m. somnolence. Continue the Depakene syrup 250 mg 3 times a day. Encourage the patient to engage in individual and connell milieu activity. Continue following safety precautions. Plan to return the patient to the least restrictive environment once he is considered psychiatrically stable. Maggi Yeboah CNP CM:PNTRANS [id number] MAGGI YEBOAH CNP 10/06/18 1517 interface
--- NOTE | ~2018-10-04 | PR ---
[place], [place] PROGRESS NOTE NAME: HAIM PERRY UNIT #: [id number] ROOM: 311 DOCTOR: XU BRADLEY MD BIRTHDATE: [birth year] DOS: 10/08/2018 INTERVAL NOTE CHIEF COMPLAINT: "The patient was somnolent and did not respond." SUMMARY OF THE VISIT: The patient was attempted to be interviewed as he was resting quietly in a Omayra chair. I did attempt to engage him in conversation, calling his name repeatedly and then gently touching his shoulder, but to no avail. The patient was very somnolent this morning and was not able to interact appropriately. Nurses do report that he did have a decent day yesterday and was not agitated or aggressive. He was able to be redirected when personal care was delivered. The patient overall does seem to be tolerating the medication regimen well and it is unclear if this somnolence is related to his nighttime medicines or not, we will monitor and support. MENTAL STATUS: My mental status examination this morning is limited due to his overall level of somnolence. We will continue to monitor and support over the next 24-48 hours. PLAN: Given his level of somnolence, I will not make any further medication adjustments. I will maintain his Exelon patch and Namenda, maintain his Risperdal at 1 mg at bedtime, attempt to engage in individual and connell milieu activity, returning then to the least restrictive environment when psychiatrically stable. XU BRADLEY MD CM:PNTRANS [phone] XU BRADLEY MD 10/08/18 0955 interface
--- NOTE | 2018-10-04 17:04 | NUR ---
HAIM PERRY a 83 year old M admitted via wheel chair from the [facility] 4TH FLOOR as a voluntary BY POA admission. Arrived on unit at 1704. ALLERGIES: NKDA. Vital signs are: 98.4-96-18 118/60.100% ROOM AIR THE FOLLOWING FORMS WERE DISCUSSED WITH AND CONSENTS OBTAINED FROM PT'S JACKIE PERRY: Authorization For The Release of Medical Information, Clothing List, Consent to Voluntary Admission and Hospitalization, Consent and Release Forms/Receipt of Rights, Acknowledgement of Advance Directive Information, Behavioral Health Consent Form, and Informed Consent of Medications. Admitted under the services of Dr. KIRK DERAS,[facility]. A search was conducted and hazardous articles were removed. Client was oriented to the unit. ISAAK MAYFIELD
[2018-10-04 17:27] VITALS: BP 118/60
--- NOTE | 2018-10-04 18:09 | NUR ---
CALL PLACED TO [phone] FOR HOSPITALIST CELL NUMBER ONE. SPOKE TO . MADE AWARE OF CONSULT FOR MEDICAL MANAGEMENT.
[2018-10-04 18:25] VITALS: BP 118/60
[2018-10-04 20:00] VITALS: BP 107/74
--- NOTE | 2018-10-04 21:57 | NUR ---
24 HR chart check completed.
--- NOTE | 2018-10-04 22:58 | NUR ---
MESSAGE LEFT ON [employer]ERS SECURE PHONE ABOUT ADMISSION TO FLOOR
--- NOTE | 2018-10-04 23:57 | NUR ---
DR PITTS ON THE UNIT TO SEE PT FOR MEDICAL MANAGEMENT
--- NOTE | 2018-10-05 00:53 | NUR ---
P-CONFUSION, NON-COMPLIANCE WITH MEDS I-ASSESS ORIENTATION, REORIENT, PROVIDE SIMPLE COMMANDS, PROMPTS & REDIRECTION, ADMINISTER MEDS, MONITOR SLEEP, PROVIDE 2 STAFF ASSISTS WITH PHYSICAL NEEDS R-PT REMAINS CONFUSED, ALERT TO PERSON ONLY, MEMORY DEFICITS PRESENT. DOES HAVE IRRITABLE OVERTONES. LIMITED VERBALLY, ATTEMPTED TO GIVE PT MEDS CRUSHED & MIXED IN PUDDING & HE ONLY TOOK 1 BITE & STATED, "THAT'S ENOUGH. NO MORE". P-CONTINUE TO MONITOR & PROVIDE WITH PHYSICAL ASSISTANCE & EMOTIONAL SUPPORT NEEDED.
--- NOTE | 2018-10-05 06:31 | NUR ---
PT HAS SLEPT PAST 2245.
[2018-10-05 06:58] LABS: BASO # 0.1 10*3/uL (0.0-0.1); BASO % 0.6 % (0.0-1.0); EOS # 0.3 10*3/uL (0.0-0.4); EOS % 3.8 % (1.0-4.0); HEMATOCRIT 40.6 % (42.0-52.0); HEMOGLOBIN 13.4 g/dl (14.0-18.0); LYMPH # 2.2 10*3/uL (1.3-4.4); LYMPH % 26.5 % (27.0-41.0); MEAN CELL VOLUME 92.1 fl (80.0-94.0); MEAN CORPUSCULAR HGB 30.4 pg (27.0-31.0); MEAN PLATELET VOLUME 9.4 fl (9.6-12.3); MONO # 0.6 10*3/uL (0.1-1.0); MONO % 6.7 % (3.0-9.0); NEUT # 5.1 10*3/uL (2.3-7.9); NEUT % 61.4 % (47.0-73.0); PLATELET COUNT AUTOMATED 263 10*3/uL (130-400); RED BLOOD COUNT 4.41 10*6/uL (4.50-5.90); RED CELL DISTRI WIDTH 14.1 % (0-14.5); WHITE BLOOD COUNT 8.2 10*3/uL (4.8-10.8)
[2018-10-05 07:16] LABS: CHLORIDE 112 mmol/L (98-107); POTASSIUM 3.6 mmol/L (3.5-5.1); SODIUM 144 mmol/L (136-145)
[2018-10-05 07:35] LABS: ALBUMIN 2.1 gm/dl (3.1-4.5); ALKALINE PHOSPHATASE 48 U/L (45-117); BUN 15 mg/dl (7-24); CHOLESTEROL 104 mg/dL (<200); CREATININE 0.78 mg/dL (0.70-1.30); HDL CHOLESTEROL 19 mg/dl (40-60); LDL CHOLESTEROL 54 mg/dL (9-159); SGOT/AST 18 IU/L (3-35); SGPT/ALT 10 U/L (12-78); TOTAL PROTEIN 6.1 gm/dL (6.4-8.2); TRIGLYCERIDES 154 mg/dl (<150); VLDL CHOLESTEROL 31 mg/dL (6-40)
[2018-10-05 08:19] VITALS: BP 126/83
[2018-10-05 09:15] LABS: VITAMIN D, 25-HYDROXY 35.3 ng/mL (30-100)
--- NOTE | 2018-10-05 11:32 | NUR ---
AM GROUP/LEISURE SKILLS/EXERCISES PT ATTENDED AND PARTICIPATED TO BEST OF ABILITY. PT STATES "YES, I LIKE MUSIC" WHEN THE BEATLES WERE PLAYING. PT RELAXED THROUGHOUT GROUP AND REMAINED PLEASANT. PT WILL CONTINUE TO ATTEND GROUP AND PARTICIPATE TO BEST OF ABILITY.
--- NOTE | 2018-10-05 15:12 | NUR ---
psychosocial hx completed this date.
[2018-10-05 20:45] VITALS: BP 120/72
--- NOTE | 2018-10-06 01:21 | NUR ---
24 HOUR CHART CHECK COMPLETED.
--- NOTE | 2018-10-06 03:20 | NUR ---
P-MEDICATION NON-COMPLIANCE, AGGRESSION WITH HOC I-ASSESS ORIENTATION, REORIENT, PROVIDE SIMPLE COMMANDS, PROMOPTS AND REDIRECTION. ENCOURAGE MEDICATION COMPLIANCE. MONTIOR SLEEP. PROVIDE 2 STAFF ASSISTS WITH PHYSICAL NEEDS. R- PT REMAINS CONFUSED, ALERT AND ORIENTED TO PERSON ONLY. NOT RECEPTIVE TO ORIENTATION WHEN PRESENTED, STATES "OH GET OUT OF HERE". PT NON COMPLIANT WITH HS MEDICATIONS, SPIT THEM OUT. UNABLE TO PROVIDE MEDICATION EDUCATION DUE TO CONFUSION. PATIENT AGITATED WITH HANDS ON CARE, ATTEMPTS TO STRIKE OUT AT STAFF, MAXIMUM REDIRECTION NEEDED. NO PHYSICAL COMPLAINTS VOICED. P-CONTINUE TO MONITOR MOOD AND BEHAVIORS. PROVIDED 1:1. REDIRECT AND REORIENT NEEDED. Q 15 MIN SAFETY CHECKS.
--- NOTE | 2018-10-06 06:07 | NUR ---
PATIENT OBSERVED ON Q 15 MIN CHECKS TO HAVE SLEPT APPROX 9 HOURS WITH NO AWAKENINGS OR SIGNS OF SYMPTOMS OF DISTRESS NOTED.
[2018-10-06 08:05] VITALS: BP 144/72
--- NOTE | 2018-10-06 15:33 | NUR ---
PT SOMNOLENT AFTER CONSUMING BREAKFAST. PT ATTEMPTED TO BITE [place] THIS AM AND PLASTIC LID TO A CUP. ALL PAPER ITEMS REMOVED FROM TRAY. PT STATES "HEY WHAT IS GOING ON HERE?" PT REDIRECTED AND CALMED. PT COOPERATIVE WITH DRESSING CHANGE TO RIGHT EAR. PT PLEASANT, RECLINED IN GERICHAIR AND SLEEPING. PT SLEPT THROUGH LUNCH. PT WOULD GRUNT IN RESPONSE TO VERBAL AND TACTILE STIMULATION BUT WOULD NOT OPEN EYES OR ENGAGE WITH THIS NURSE. NURSE PRACTITIONER AWARE, N.O. TO DECREASE RISPERDAL FROM 2MG TO 1MG AT HS. PT ASSISTED TO BED WITH +2 ASSIST FOR REST AND COMFORT. PLAN TO CONTINUE TO MONITOR FOR INCREASED SOMNOLENCE. PROVIDE EMOTIONAL SUPPORT NEEDED AND REORIENT AND REDIRECT NEEDED.
--- NOTE | 2018-10-06 15:45 | NUR ---
Shift chart check completed.
--- NOTE | 2018-10-06 16:11 | NUR ---
PM GROUP/GAMES/MUSIC/POPCORN PT REMAINED IN BED DURING ACTIVITIES. PT WILL CONTINUE TO BE ENCOURAGED TO ATTEND AND PARTICIPATE IN FUTURE GROUP SESSIONS.
[2018-10-06 19:59] VITALS: BP 116/62
--- NOTE | 2018-10-06 22:56 | NUR ---
P-MEDICATION NON COMPLIANCE, AGGRESSION WITH HOC I-ASSESS ORIENTATION, REORIENT, PROVIDE SIMPLE COMMANDS, PROMPTS AND REDIRECTION. ENCOURAGE MEDICATION COMPLIANCE. MONITOR SLEEP, PROVIDE 2 STAFF ASSISTS WITH PHYSICAL NEEDS. R-PT REMAINS CONFUSED, ALERT TO PERSON ONLY. NOT RECEPTIVE TO ORIENTATION WHEN PRESENTED, STATES "LEAVE ME ALONE, ILL TALK TO YOU IN THE MORNING". PT NON COMPLIANT WITH HS MEDICATIONS AFTER X3 ATTEMPTS, UNABLE TO EDUCATE DUE TO NOTED CONFUSION. PT CONTINUES TO HAVE MILD AGITATION WITH HANDS ON CARE, MAXIMUM REDIRECTION NEEDED. NO PHYSICAL COMPLAINTS VOICED. P- CONTINUE TO MONITOR MOOD AND BEHAVIORS, PROVIDE 1:1 AND EMOTIONAL SUPPORT WHEN NEEDED. PROVIDE REORIENTATION AND REDIRECTION NEEDED. MAINTAIN Q 15 MIN SAFETY CHECKS.
--- NOTE | 2018-10-07 03:47 | NUR ---
24 HOUR CHART CHECK COMPLETED.
--- NOTE | 2018-10-07 03:48 | NUR ---
24 HOUR CHART CHECK COMPLETED.
--- NOTE | 2018-10-07 05:14 | NUR ---
PATIENT OBSERVED ON Q 15 MIN CHECKS TO HAVE SLEPT APPROX 8 HOURS WITH X1 AWAKENING DURING STAFF CHECKS TO ASK STAFF FOR "SWEETS" AND "BREAKFAST". PATIENT EASILY REDIRECTED. NO SIGNS OR SYMPTOMS OF DISTRESS NOTED.
--- NOTE | 2018-10-07 06:00 | NUR ---
DURING HOC PT ATTEMPTED TO GRAB A HOLD OF MILIEU'S ARMS AND GRABBED HIS OWN ARM DIGGING HIS NAILS IN TO HIS OWN ARM CAUSING A SKIN TEAR. PT COMBATIVE WITH HOC THIS AM. DR BALES UPDATED AT 0611 AND STATED HE WOULD PUT SKIN TEAR ORDERS IN. WOUND CARE NURSE, CHRISTOPHER, UPDATED AT 0605 AND WILL BE DOWN TO LOOK AT ARM. NURSING SKYDIVING INSTRUCTOR, MARIANELA, UPDATED AT 0614. POA WHO IS THE SON, DILLON, UPDATED AT 0635. VERGE INCIDENT FILED. PT PLACED IN DAVID CHAIR AT THIS TIME.
[2018-10-07 06:57] VITALS: BP 129/70
--- NOTE | 2018-10-07 06:59 | NUR ---
HAIM PERRY Bert [id number] Please refer to the physician's history and physical for past medical history, comorbid conditions, and allergies. Diagnosis: INTERMITTENT EXPLOSIVE DISORDER Jose Guadalupe Score: 16,AT RISK WOUND DESCRIPTIONS: Location of the wound: right ear Type of wound: stage 4 Thickness: Full Size: 1.0cm x 1.2cm x 0.1cm Tunneling: none Undermining: none Sinus Tract: none Presence of Exudate: Serosanguineous Amount: Light Color: Red Odor: None Periwound Skin Appearance: Normal Wound edges: approximated Pain (associated with wound): none at time of assessment How does patient state this happened? pt unable to state how this happened Location of the wound: left forearm Type of wound: skin tear Thickness: Partial Size: 4.6cm x 2.0cm x 0.1cm Tunneling: none Undermining: none Sinus Tract: none Presence of Exudate: Serosanguineous Amount: Light Color: Red Odor: None Periwound Skin Appearance: Normal Wound edges: approximated Pain (associated with wound): none at time of assessment How does patient state this happened? pt unable to state how this happened nurse caring for patient stated he did it to himself Coccyx is red and blanchable at time of assessment. No open areas noted at time of assessment. Left buttocks scar noted. No open areas at time of assessment. Surface the patient is resting on: Proform SKIN PREVENTION RECOMMENDATION: 1. Pressure redistribution support surface as appropriate 2. Elevate heels 3. Remove boots/TEDS every shift and reapply 4. Head of bed 30 degrees as tolerated 5. Assess nutrition and hydration 6. Manage moisture 7. Avoid the use of containment devices while in bed 8. Use absorptive products on surfaces limit layers of linens on bed 9. Turn and reposition every 1-2 hours in bed and every 1 hour in chair as tolerated 10. Weight shifts every 15 minutes while up in chair 11. Offloading with pillows or device to keep heels elevated off bed 12. Monitor skin at least every shift 13. Inspect under medical devices twice a day WOUND TREATMENT RECOMMENDATIONS: Wheelchair cushion when oob. D/C calazime bid. D/C Moist Associated Skin Damage. D/C skin tear to right ear. Stage 4 guidelines: Cleanse right ear with nss and apply sureprep around the wound therahoney to wound bed and cover with dsd. Clarify skin tears to left arm: Cleanse left arm with nss and apply sureprep around the wound sureprep secure with versatel then apply hydrogel and cover with optifoam gentle.
--- NOTE | 2018-10-07 08:15 | NUR ---
Treatment Plan meeting with Dr. Wick, RN, AT and Mechanical Spreader Operator. Plan for discharge early next week. Pt. LTC at [facility] and will return at discharge.
--- NOTE | 2018-10-07 08:29 | NUR ---
PHYSICAL THERAPY Nursing screen received. PT orders also received. Thank you. Alayna Cardenas,PT
--- NOTE | 2018-10-07 09:45 | NUR ---
PHYSICAL THERAPY PAtient evaluatd on 3, full evaluation to follow. Continue with PT as per plan of care with fall, unit three and max(A) and alarm precautions. Return to LTC as prior for d/c planning with PT prn to return to PLOF. PAtient is moderate complexity via chart review, tests and evaluation: [id number]. Thank you for this referral. Alayna Cardenas,PT
--- NOTE | 2018-10-07 09:51 | NUR ---
SUSAN PATEL CNP ON UNIT TO ASSESS PATIENT.
--- NOTE | 2018-10-07 11:34 | NUR ---
AM GROUP/GAMES PT ATTENDED GROUP BUT UNABLE TO PARTICIPATE DUE TO SLEEPING IN RECLINED CHAIR. PT WILL CONTINUE TO BE ENCOURAGED TO ATTEND AND PARTICIPATE IN FUTURE GROUP SESSIONS.
--- NOTE | 2018-10-07 12:12 | NUR ---
Nutritional Support Services Note: Recommend Ensure po TID to help increase kcal and protein. Appetite flucuates daily, ususally eats 100% of one meal daily. Area noted to ear. Will follow as needed. Renea Guillen Rdn Ld
--- NOTE | 2018-10-07 12:54 | NUR ---
Updates faxed to [facility] Attn: Fabi.
--- NOTE | 2018-10-07 15:24 | NUR ---
Shift chart check completed.
--- NOTE | 2018-10-07 15:27 | NUR ---
PM GROUP/MEDITATION/LEISURE SKILLS PT ATTENDED AND PARTICIPATED DURING GROUP TO BEST OF ABILITY. PT PLAYED A "WOULD YOU RATHER" GAME AND SMILED THROUGH IT UNTIL STATING "I WANT TO LAY DOWN, CAN I LEAVE YET". THIS STAFF REDIRECTED PT AND RECLINED PT CHAIR SO PT COULD RELAX EASIER. PT DID NOT BECOME AGITATED OR COMBATIVE AT THIS TIME. PT WILL CONTINUE TO ATTEND AND PARTICIPATE IN GROUP TO BEST OF ABILITY.
--- NOTE | 2018-10-07 16:23 | NUR ---
Nursing screen and Occupational Therapy referral received. Thank you. Nazia Rizzo OTR/l
--- NOTE | 2018-10-07 17:03 | NUR ---
PT GIVEN 156 INVEGA IM.
--- NOTE | 2018-10-07 18:06 | NUR ---
PATIENT IS ALERT TO PERSON WITH CONFUSION; ABLE TO VOICE NEEDS. LONG/SHORT TERM MEMORY DEFICITS. MOOD IS STBLE, PLEASANT DEMEANOR. NO AGGRESSION WITH HANDS ON CARE. 1-2 PERSON ASSIST WITH ACTIVITIES OF DAILY LIVING, INCONTINENT OF BOWEL AND BLADDER. SET UP FOR MEALS, INTAKES ARE GOOD WITH ADEQUATE FLUIDS. MEDICATION COMPLAINT. Q 15 MINUTE SAFETY CHECKS MAINTAINED. UP IN GERICHAIR RECLINED. NO SIGNS OR STRESS OR DISCOMFORT. CONTINUE TO MONITOR FOR AGGRESSION, PROVIDE ONE ON ONE AND REDIRECTION NEEDED.
[2018-10-07 20:00] VITALS: BP 128/76
--- NOTE | 2018-10-08 02:05 | NUR ---
PATIENT ALERT AND ORIENTED TO SELF WITH CONFUSION NOTED. MOOD STABLE. PT CALM, PLEASANT, AND INTERACTIVE. SAT IN DINING ROOM HS SNACK AND WATCHED TV WITH PEERS. MEDICATION COMPLIANT WITHOUT DIFFICULTY WITH ORANGE JUICE, UNABLE TO PROVIDE EDUCATION DUE TO CONFUSION. VOICES NO SI/HI AND HALLUCIANTIONS, NO NOTED RESPONDING TO INTERNAL STIMULI. NO PARANOIA/DELUSIONS OBSERVED. COMPLIANT WITH HOC SO FAR THIS SHIFT, SHOWERED WITH ASSISTANCE. NO AGGRESSION NOTED. NO PHYSICAL COMPLAINTS VOICED. PATIENT CURRENTLY LAYING DOWN WITH EYES CLOSED, RESPIRATIONS EASY AND REGULAR, NO SIGNS OR SYMPTOMS OF DISTRESS NOTED.
--- NOTE | 2018-10-08 05:09 | NUR ---
Recommend follow up for wound care in outpatient setting patient being discharge to another facility at this time.
--- NOTE | 2018-10-08 06:28 | NUR ---
PT SLEPT APPROXIMATELY 6 HOURS THIS SHIFT. Q15 MINUTE SAFETY CHECKS MAINTAINED.
--- NOTE | 2018-10-08 07:05 | NUR ---
PHYSICAL THERAPY Patient was sound asleep this am when approached for therapy visit and unavailable at this time. Will continue per POC as tolerate. Zeferino Weaver, FOOD CROPS FARM HAND
[2018-10-08 07:43] VITALS: BP 132/58
--- NOTE | 2018-10-08 08:15 | NUR ---
Treatment Plan meeting with Dr. Wick, RN, AT, SW and Volleyball Commentator. Plan for discharge Early next week. [facility]. [facility] and Will return at discharge.
--- NOTE | 2018-10-08 11:40 | NUR ---
PATIENT ALERT TO PERSON ONLY WITH CONFUSION NOTED. ST/LT MEMORY DEFICITS NOTED. PATIENT NAPPING IN GERICHAIR AT THIS TIME. PATIENT EASILY IRRITABLE, PROVIDE 1:1 INTERACTION WITH EMOTIONAL SUPPORT IS EFFECTIVE TO CALM PATIENT DOWN WHEN IRRITABLE. MEDICATION COMPLIANT IN ORANJE JUICE. EDUCATION PROVIDED FOR EACH MEDICATION, PATIENT EASILY CONFUSED AND DOES NOT REMEMBER. NO S/S INTERACTING WITH INTERNAL STIMULI. PATIENT ISOLATIVE TO SELF BUT ENGAGES IN CONVERSATION WHEN SPOKEN TO. WHEN TALKING PATIENT GETS CONFUSED AND MISPLACES WORDS IN HIS SENTENCES. PATIENT INCONTINENT OF BOWL AND BLADDER. PATIENT VERY UNSTEADY, 2 ASSIST NEEDED FOR SAFETY. Q15 MINUTE CHECKS MAINTAINED FOR SAFETY. FALLING STAR PROGRAM IN PLACE FOR SAFETY.
--- NOTE | 2018-10-08 12:02 | NUR ---
AM GROUP/RELAXATION TECHNIQUES PT WAS PRESENT FOR MORNING GROUP THERAPY RECLINED SLEEPING IN A DAVID CHAIR. PT DID NOT AWAKEN FOR GROUP. PT WILL BE OFFERED STIMULATION THIS AFTERNOON DURING GROUP.
--- NOTE | 2018-10-08 12:51 | NUR ---
Shift chart check completed.
--- NOTE | 2018-10-08 15:16 | NUR ---
Jennifer Montiel called and stated he wanted to come visit pt on and this scenario writer inquired about time and confirmed that he could visit. Notified unit staff of 's plan to visit this coming .
--- NOTE | 2018-10-08 15:26 | NUR ---
Patient not available for Occupational Therapy evaluation as he was in group therapy session at 1459 and 1526. Nazia Rizzo OTR/L
--- NOTE | 2018-10-08 15:38 | NUR ---
PM GROUP/STRESS REDUCTION PT WAS PRESENT FOR AFTERNOON GROUP THERAPY AND WAS SLEEPING RECLINED IN A DAVID CHAIR. PT DID NOT AWAKE DURING GROUP. PT IS UNABLE TO PARTICIPATE IN GROUP ACTIVITIES AT THIS TIME DUE TO COGNITIVE IMPAIRMENT AND HIGH LEVEL OF CONFUSION.
--- NOTE | 2018-10-08 17:00 | NUR ---
ATTEMPTED TO CHANGE PATIENTS DRESSINGS AT THIS TIME. PATIENT BECAME COMBATIVE AND YELLING OUT AT STAFF. WILL TRY AGAIN AT ANOTHER TIME WHEN PATIENT CALMS DOWN.
--- NOTE | 2018-10-08 17:20 | NUR ---
STRAIGHT CATH PREFORMED AT THIS TIME FOR A UA AND C&S. PATIENT TOLERATED THE PROCEDURE VERY WELL. 300CC OF DARK YELLOWISH BROWN URINE COLLECTED. LABELED SPECIMEN AND SENT TO LAB.
[2018-10-08 17:50] LABS: BILIRUBIN NEGATIVE (NEGATIVE); BLOOD 1+ (NEGATIVE); CLARITY CLOUDY (CLEAR); COLOR YELLOW (YELLOW); GLUCOSE NEGATIVE (NEGATIVE); KETONE NEGATIVE (NEGATIVE); LEUKO ESTERASE 3+ (NEGATIVE); NITRITE POSITIVE (NEGATIVE)
[2018-10-08 18:14] LABS: BACTERIA 4+; EPITHELIAL CELLS 0-2; WBC TNTC wbc/hpf (0-5)
--- NOTE | 2018-10-08 18:26 | NUR ---
DR. ENNIS NOTIFIED OF UA RESULTS OF 1+BLOOD, POSITIVE NITIRITES, 3+ LEUKOCYTES, 4+BACTERIA.
[2018-10-08 19:45] VITALS: BP 130/62
--- NOTE | 2018-10-08 21:31 | NUR ---
24 HR chart check completed.
--- NOTE | 2018-10-08 21:40 | NUR ---
PT HAS BEEN SLEEPING SINCE THE ONSET OF THE SHIFT. EASILY AGITATED WHEN HE IS VERBALLY AWAKENED OR WITH HANDS ON CARE. HAS BEEN SWINGING AT STAFF, CALLING STAFF ASSHOLES & SPITTING AT STAFF. HS MEDICATIONS HELD A NURSING MEASURE PT HAS BEEN DROWSY. WAS MEDICATED WITH MONUROL VIA SYRINGE. ALERT TO PERSON ONLY. 3 STAFF ASSISTED PT TO BED.
--- NOTE | 2018-10-09 05:19 | NUR ---
PT HAS SLEPT QUIETLY PAST 2200
[2018-10-09 07:41] VITALS: BP 126/67
--- NOTE | 2018-10-09 08:03 | NUR ---
PT AWAKE, ALERT, FEEDING SELF BREAKFAST AFTER SET UP ASSIST BY STAFF. ON UNIT TO SEE PT AT THIS TIME, UPDATE GIVEN.
--- NOTE | 2018-10-09 08:15 | NUR ---
Treatment Plan meeting with Dr. Wick, RN, AT, and Certified Professional Ergonomist. Plan for discharge Sunday. Pt. is LTC at [facility] and will return at discharge.
--- NOTE | 2018-10-09 08:45 | NUR ---
PHYSICAL THERAPY Patient was sitting up in activity room Omayra chair this am upon therapist arrival and presented with a little increased Lethargic behavior. Patient was observed earlier having breakfast, but upon return was now having trouble keeping his eyes open. Nurse was present for observation only of therapist treatment time, reporting patient was up very early 4 am or so. Patient needed repeated verbal / tactile cueing to complete seated B LE therex, all planes, x 10 reps each, demonstrating difficulty focusing on task. Patient continued lethargic behaviour following treatment by remaining in Omayra chair with lap tray and body alarm, under U staff Supervision. Will continue per POC as able. Zeferino Weaver, ROPE TWISTING MACHINE OPERATOR
--- NOTE | 2018-10-09 09:08 | NUR ---
Updates faxed to [facility] Attn: Fabi.
--- NOTE | 2018-10-09 10:14 | NUR ---
ISABELLE CHIEF RELAY TESTER ON UNIT TO SEE PT AT THIS TIME.
--- NOTE | 2018-10-09 10:16 | NUR ---
Collaborated with tx team regarding pt progress, UTI, discharge plan and recommendation to have pt and in separate rooms to assist with the aggressive behaviors pt is exhibiting during 's hands on care. Called son/next of kin and reviewed updates for tx team discussion. Also, discussed potential trauma history and son confirmed he believes it is his "Dad's old school mentality of trying to protect his because he is her ". Son stated he will talk to [place] at the half-way to see what they think about possibly pt and his during her hands-on care. Son stated pt is self pay currently where they are so same denton likely if they separate rooms. Discussed behavior management techniques including positive reinforcement as well as distraction techniques to assist pt in witnessing his receive hands on care. Discussed the possiblity the tx team reviewed this morning of pt not being in same proximity of his when she received hands-on care due to pt's repeated combativeness. Discussed the impact of confusion as well as pt trying to communicate his distress and loss of control in being able to help his . Son mentioned pt just moved back in with his at end of Jun. because she was in the hospital. And from until end of year, pt had 3 falls and now it is aggressive behaviors. Notified son of pts UTI. Son stated he will talk to [place] at the facility and let this technical writer know if he has any questions. Provided support and encouragement as this has been a hard time recently for the family with multiple hospitalizations and the loss of pts son. Emphasized importance of self care. Provided this technical writer's cell for any f/u questions/concerns. Son thanked this technical writer. Discussed projected discharge being early next week. Updated sr. merchandise planner on discussion with Son and collaborated regarding plan for discharge.
--- NOTE | 2018-10-09 11:45 | NUR ---
P- CONFUSION, POOR ST/LT MEMORY, MOOD IRRITABILITY I- ORIENTATION, MOOD AND BEHAVIOR ASSESSED. APPROPRIATE REORIENTATION, REDIRECTION AND 1:1 PROVIDED NEEDED. ASSESSED PT FOR SI/HI, INTENT OR PLAN. ASSESSED PT FOR S/S HALLUCINATIONS, PARANOIA AND/OR DELUSIONS. MEDICATIONS ADMINISTERED PER PHYSICIAN'S ORDERS. ASSISTANCE WITH ADL CARE PROVIDED FOR PT BY STAFF ASSIST X2. ENCOURAGED PT TO ATTEND AND PARTICIPATE IN [facility] MILIEU GROUPS AND ACTIVITIES. WOUND CARE COMPLETED TO RIGHT EAR AND LEFT FOREARM ORDERED. R- PT IS ALERT AND ORIENTED TO SELF ONLY, CONFUSED IN ALL OTHER AREAS. ST/LT MEMORY GAPS NOTED. RESPS EASY AND EVEN ON ROOM AIR. MOOD IS IRRITABLE AT TIMES, AFFECT BROAD RANGE. SPEECH IS LOUD, COHERENT, IRRELEVANT AT TIMES. PT DENIES SI/HI, INTENT OR PLAN. PT DENIES HALLUCINATIONS, NO RESPONSE TO INTERNAL STIMULI NOTED. NO PARANOIA/DELUSIONS NOTED. MEDICATION COMPLIANT THIS AM WITHOUT DIFFICULTY. PT BECAME IRRITABLE WITH THIS NURSE DURING WOUND CARE, PT DID ALLOW WOUND CARE TO BE COMPLETED BUT STATED TO THIS NURSE "WHAT ARE YOU A DOCTOR OR SOMETHING? WHAT THE HELL DO YOU KNOW ABOUT IT?" REMINDED PT THIS SLAT PICKLER WAS HIS NURSE AND WAS PROVIDING CARE ACCORDING TO THE DOCTOR'S ORDERS, PT LAUGHED AND STATED "YOU'RE A NURSE? MY ASS! YOU'RE A NERD! NERD! NERD!" NO PHYSICAL AGGRESSION OR THREATENING BEHAVIORS THIS MORNING. PT NAPS INTERMITTENTLY T/O THE MORNING, EASILY AROUSABLE VIA VERBAL AND TACTILE STIMULI. P- PLAN TO CONTINUE CURRENT TREATMENT, CONTINUE TO MONITOR MOOD AND BEHAVIORS AND PROVIDE APPROPRIATE REORIENTATION, REDIRECTION AND 1:1 NEEDED. CONTINUE TO ENCOURAGE GROUP ATTENDANCE AND PARTICIPATION WELL MEDICATION COMPLIANCE.
--- NOTE | 2018-10-09 11:58 | NUR ---
AM GROUP/EXERCISE AND LIGHT THERAPY PT DID NOT ATTEND MORNING GROUP THERAPY. PT WAS SLEEPING RECLINED IN A DAVID CHAIR IN THE DAY ROOM.
--- NOTE | 2018-10-09 15:26 | NUR ---
ORDER FOR MONUROL X1 RECIEVED, CALL PLACED TO ISABELLE OQUENDO, MADE AWARE PT WAS GIVEN MONUROL ON BOWSTRING MAKER 10/08/17 AFTER UA RESULTS WERE CALLED TO . ISABELLE OQUENDO STATES TO CANCEL MONUROL ORDER GIVEN THIS DATE. WITNESSED BY 2ND RN.
--- NOTE | 2018-10-09 15:37 | NUR ---
PM GROUP/MUSIC AND RELAXATION PT WAS PRESENT FOR GROUP RESTING RECLINED IN A DAVID CHAIR. PT WAS SMILING AND PLEASANT AND WANTED ME TO KISS HIM. PT WAS REDIRECTED. PT EXHIBITED NO AGITATION OR AGGRESSION DURING GROUP. PT IS PLEASANTLY CONFUSED AND UNABLE TO PARTICIPATE IN GROUP ACTIVITIES.
--- NOTE | 2018-10-09 18:56 | NUR ---
SHIFT CHART CHECK COMPLETED.
[2018-10-09 20:00] VITALS: BP 134/80
--- NOTE | 2018-10-09 23:25 | NUR ---
24 HR chart check completed.
--- NOTE | 2018-10-10 00:51 | NUR ---
PT WAS SLEEPING AT THE ONSET OF THE SHIFT IN THE DINING ROOM. 3 ASSISTS. INCREASED AGITATION WITH HANDS ON CARE. IRRITABLE. ALERT TO PERSON ONLY. REFUSED HS MEDS & SPIT THEM AT STAFF.
--- NOTE | 2018-10-10 05:56 | NUR ---
PT HAS SLEPT PAST 2044.
--- NOTE | 2018-10-10 07:10 | NUR ---
PHYSICAL THERAPY Patient was sound asleep in activity room Omayra chair this morning and available for treatment. Will continue per POC as tolerated. Zeferino Weaver, FLOATMAN
[2018-10-10 08:09] VITALS: BP 134/65
--- NOTE | 2018-10-10 08:15 | NUR ---
Treatment Plan meeting with Dr. Wick, RN, AT, and Cloud Services Architect. Plan for discharge Sunday. Pt. to return to [facility].
--- NOTE | 2018-10-10 12:39 | NUR ---
AND DR. MENESES ON UNIT TO ASSESS PT.
--- NOTE | 2018-10-10 12:57 | NUR ---
Updates faxed to [facility] Attn: Fabi.
--- NOTE | 2018-10-10 15:41 | NUR ---
PM GROUP/ART AND MUSIC PT WAS PRESENT FOR AFTERNOON GROUP THERAPY SLEEPING RECLINED IN A DAVID CHAIR. PT DID NOT AWAKEN DURING GROUP.
[2018-10-10 19:14] VITALS: BP 136/78
--- NOTE | 2018-10-10 21:12 | NUR ---
24 HR chart check completed.
--- NOTE | 2018-10-10 21:27 | NUR ---
PT SLEEPING IN DAVID CHAIR IN THE DINING ROOM, REFUSED HS SNACK. ATTEMTPTED TO GIVE MEDS CRUSHED & MIXED IN PUDDING. PT SPIT PUDDING & MEDS AT STAFF. IRRITABLE WITH HANDS ON CARE. 2 STAFF ASSISTS PROVIDED TO ASSIST TO BED. INCONTINENT OF URINE.
--- NOTE | 2018-10-11 05:49 | NUR ---
SLEPT PAST 2229.
[2018-10-11 07:15] VITALS: BP 140/78
--- NOTE | 2018-10-11 08:15 | NUR ---
Treatment Plan meeting with Dr. Wick, RN, AT, and Ham Smoker. Plan for discharge Sunday. Pt. to return to [facility].
--- NOTE | 2018-10-11 10:28 | NUR ---
Spoke with Fabi LANG at [facility] and Advised of plans to discharge Sunday. Fabi states "She spoke with the Son at length about the room change advise of Dr. Wick and Son does not want his parents in different rooms". "The whole reason we have them in the same Residential is so that they can be together until their lives come to an end". Thanked Fabi for speaking with Son. Faxed updates to [facility] Attn: Fabi. Working with Fabi at this time to arrange transportation.
--- NOTE | 2018-10-11 11:00 | NUR ---
ON UNIT TO ASSESS PT, UPDATE PROVIDED RE: UA RESULTS.
--- NOTE | 2018-10-11 11:58 | NUR ---
AM GROUP/EXERCISE AND BRAIN GAMES PT WAS PRESENT FOR MORNING GROUP THERAPY RECLINED IN A DAVID CHAIR SLEEPING. PT IS UNABLE TO PARTICIPATE IN GROUP ACTIVITIES AT THIS TIME DUE TO HIGH LEVEL OF CONFUSION
--- NOTE | 2018-10-11 15:43 | NUR ---
PM GROUP/MUSIC AND MANICURES PT WAS PRESENT FOR AFTERNOON GROUP THERAPY BUT WAS SLEEPING RECLINED IN A DAVID CHAIR. PT DID NOT AWAKEN DURING GROUP.
--- NOTE | 2018-10-11 17:52 | NUR ---
SPOKE WITH RE: PT URINE RESULTS PER . HE WILL PUT SOMETHING IN.
[2018-10-11 19:57] VITALS: BP 130/79
--- NOTE | 2018-10-11 22:25 | NUR ---
NO ADVERSE MOODS OR BEHAVIORS NOTED THIS SHIFT. PT ALERT TO PERSON ONLY, SHORT TERM/PENITENTIARY MEMORY DEFICITS NOTED. PT MED COMPLIANT WITH AM MEDS WITHOUT DIFFICULTY. PT REFUSED HS MEDS, UNABLE TO PROVIDE MED EDUCATION D/T CONFUSION. NO HALLUCINATIONS OR DELUSIONS NOTED. PT DENIES ANY SUICIDAL/HOMICIDAL THOUGHTS. PT UP TO GERICHAIR, D/T INABILITY TO AMBULATE INDEPENDENTLY, PT REQUIRES 1-2 STAFF ASSIST FOR TRANSFERS AND HYGIENE CARE. PT INCONTINENT OF BOWEL AND BLADDER, CARE PROVIDED NEEDED. PLAN IS TO MONITOR PT BEHAVIORS ON Q15 MIN SAEFTY CHECKS, ENCOURAGE MED COMPLIANCE, PROVIDE EMOTIONAL SUPPORT AND 1:1 FOR PT TO VOICE FEELINGS.
--- NOTE | 2018-10-12 06:28 | NUR ---
PT SLEPT APPROXIMATELY 10 HOURS THIS SHIFT. Q15 MINUTE SAFETY CHECKS MAINTAINED.
[2018-10-12 07:37] VITALS: BP 131/70
--- NOTE | 2018-10-12 08:30 | NUR ---
PT AWAKE, ALERT, FEEDING SELF BREAKFAST AFTER SET UP ASSIST IN DINING ROOM WITH PEERS. JOSE ALVARADO HOMEMAKER COMPANION ON UNIT TO SEE PT FOR , UPDATE GIVEN.
--- NOTE | 2018-10-12 11:01 | NUR ---
AND ON UNIT TO SEE PT AT THIS TIME, AWARE URINE CULTURE REVEALED +MRSA. GAVE ORDER FOR INDWELLING URINARY CATHETER AT THIS TIME.
--- NOTE | 2018-10-12 11:53 | NUR ---
PT ATTENDED GROUP B UT DID NOT PARTICIPATE DUE TO NAPPING IN RECLINER. THIS STAFF WITNESSED PT SPIT OUT WATER AT NURSES AFTER JUST PLEASANTLY SMILING AT THEM. PT THEN FELL BACK ASLEEP TO NOT WAKE AGAIN. PT WILL CONTINUE TO ATTEND GROUP AND PARTICIPATE TO BEST OF PT ABILITY.
--- NOTE | 2018-10-12 15:15 | NUR ---
P- CONFUSION. POOR ST/LT MEMORY. MEDICATION NONCOMPLIANCE. AGITATION. LABILE MOOD. I- ORIENTATION, MOOD AND BEHAVIOR ASSESSED. REORIENTATION, REDIRECTION AND 1:1 PROVIDED NEEDED. ASSESSED PT FOR SI/HI, INTENT OR PLAN. ASSESSED PT FOR S/S HALLUCIATIONS, PARANOIA AND/OR DELUSIONS. ATTEMPTED TO ADMINISTER MEDICATIONS PER PHYSICIAN'S ORDERS. ENCOURAGED PT TO ATTEND AND PARTICIPATE IN [facility] GROUPS AND ACTIVITIES. R- PT IS ALERT AND ORIENTED TO SELF ONLY, ANSWERS TO NAME, CONFUSED IN ALL OTHER AREAS. ST/LT MEMORY GAPS NOTED. RESPS EASY AND EVEN ON ROOM AIR. MOOD LABILE, AFFECT BROAD RANGE. PT DENIES SI/HI, INTENT OR PLAN. PT DENIES HALLUCINATIONS, NO RESPONSE TO INTERNAL STIMULI NOTED. NO PARANOIA/DELUSIONS NOTED. PT REFUSED AM MEDICATIONS, BECAME SLIGHTLY AGITATED WITH MED PASS AND SPIT THEM OUT AT THIS NURSE AND ATTEMPTED TO SWAT CUP OF WATER FROM NURSE'S HAND. PT THEN SMILED WIDELY AT NURSE. P- PLAN TO CONTINUE CURRENT TX, CONTINUE TO MONITOR MOOD AND BEHAVIORS. CONTINUE TO PROVIDE REORIENTATION, REDIRECTION AND 1:1 NEEDED. CONTINUE TO ENCOURAGE MEDICATION COMPLIANCE WELL GROUP ATTENDANCE AND PARTICIPATION.
--- NOTE | 2018-10-12 17:52 | NUR ---
SHIFT CHART CHECK COMPLETED.
[2018-10-12 20:00] VITALS: BP 127/70
--- NOTE | 2018-10-12 23:18 | NUR ---
24 HR chart check completed.
--- NOTE | 2018-10-13 02:05 | NUR ---
AT 2220 # 18 FR ARELLANO CATHETER INSERTED WITHOUT DIFFICULTY ORDERED. rETURN FLOW OF URINE WAS STRAW COLORED AND CLEAR. TOLERATED PROCEEDURE WELL. FLUIDS ENCOURAGED. MOOD HAS BEEN STABLE. PATIENT MED COMPLIANT. WILL CONTINUE TO FOLLOW CURRENT TREATMENT PLAN AND MONITOR.
--- NOTE | 2018-10-13 05:55 | NUR ---
PATIENT SLEPT OVER 7 HOURS LAST NIGHT
--- NOTE | 2018-10-13 06:33 | NUR ---
ARELLANO CATH BAG EMPTIED FOR 1000CC DK GOLD, CLEAR URINE. URINE IN TUBING IS CREAMY YELLOW WITH A LARGE AMOUNT OF SEDIMENT. fLUIDS ENCOURAGED.
[2018-10-13 07:08] VITALS: BP 127/85
--- NOTE | 2018-10-13 09:17 | NUR ---
JOSE ALVARADO SUSTAINABLE DESIGN COORDINATOR, COVERING FOR ON UNIT TO SEE PT AT THIS TIME, UPDATE GIVEN.
--- NOTE | 2018-10-13 15:56 | NUR ---
PM GROUP PT UNABLE TO ATTEND DUE TO SLEEPING IN RECLINER. PT WILL BE ENCOURAGED TO ATTEND AND PARTICIPATE TO BEST OF ABILITY IN FUTURE GROUP SESSIONS.
--- NOTE | 2018-10-13 18:20 | NUR ---
PT IS ALERT WITH CONFUSION. POOR ST/LT MEMORY NOTED. RESPS EASY AND EVEN ON ROOM AIR. MOOD IS ANGRY/IRRITABLE AT TIMES. AFFECT BROAD RANGE, SPEECH IS COHERENT, ABLE TO MAKE SIMPLE QUESTIONS. PT DENIES SI/HI, INTENT OR PLAN. PT DENIES HALLUCINATIONS, NO RESPONSE TO INTERNAL STIMULI NOTED. NO PARANOIA/DELUSIONS NOTED. PT REFUSED ALL AM MEDICATIONS WITH THE EXCEPTION OF BACTRIM, PT STATED "GET AWAY FROM ME YOU SIMPLE ASSHOLE". NO PHYSICAL AGGRESSION THIS DATE. COOPERATIVE WITH HANDS ON CARE. ARELLANO CATH INTACT AND PATENT DRAINING CLOUDY YELLOW URINE. AWARE PT HAS MISSED 2 DOSES OF BACTRIM D/T REFUSALS. PT REQUIRES STAFF ASSISTANCE WITH ADL CARE, ABLE TO FEED SELF WITH SET UP ASSIST. NO DISTRESS NOTED. REFER TO [facility] FOR SPECIFIC DOCUMENTATION. Q15 MIN SAFETY CHECKS CONTINUED PER POLICY. PLAN TO CONTINUE CURRENT TX, CONTINUE TO MONITOR MOOD AND BEHAVIORS, PROVIDE REDIRECTION, REORIENTATION AND 1:1 NEEDED.
--- NOTE | 2018-10-13 18:49 | NUR ---
SHIFT CHART CHECK COMPLETED.
[2018-10-13 19:10] VITALS: BP 138/77
--- NOTE | 2018-10-13 19:26 | NUR ---
OFfered support and encouragement and pt responded pleasantly and seemed content and provided a compliment to this senior writer.
--- NOTE | 2018-10-13 21:25 | NUR ---
24 HR chart check completed.
--- NOTE | 2018-10-13 23:38 | NUR ---
PT HAS BEEN SLEEPING IN A DAVID CHAIR SINCE THE ONSET OF THE SHIFT. WHEN AWAKENED ON APPROACH, PT WAS PLEASANT & WAS OFFERED FLUIDS & WAS CO-OPERATIVE. ALL HS MEDS WERE TAKEN CRUSHED & MIXED IN CRANBERRY JUICE. PT STATED, "THANK YOU. I WAS THIRSTY. MY PIPES WERE DRY". PT THEN ATE 2 CRACKERS & CHEESE FOR SNACK. ALERT TO PERSON ONLY. REMAINS CONFUSED. ARELLANO CATH REMAINS INTACT WITH 200 CC OUT PUT SO FAR. REQUIRED 2 SRAFF ASSISTS FOR BED.
--- NOTE | 2018-10-14 04:47 | NUR ---
PT HAS SLEPT QUIETLY THROUGHOUT THE SHIFT PAST 2300.
--- NOTE | 2018-10-14 06:25 | NUR ---
HAIM PERRY Bert [id number] Please refer to the physician's history and physical for past medical history, comorbid conditions, and allergies. Diagnosis: INTERMITTENT EXPLOSIVE DISORDER Jose Guadalupe Score: 16,AT RISK WOUND DESCRIPTIONS: Location of the wound: right ear Type of wound: stage 4 Thickness: Full Size: 1.0cm x 1.3cm x 0.1cm Tunneling: none Undermining: none Sinus Tract: none Presence of Exudate: Sanguineous Amount: Moderate Color: Red Odor: None Periwound Skin Appearance: Normal Wound edges: approximated Pain (associated with wound): tender to touch How does patient state this happened? pt unable to state how this happened Location of the wound: left forearm Type of wound: skin tear Thickness: Partial Size: 4.3cm x 1.8cm x 0.1cm Tunneling: none Undermining: none Sinus Tract: none Presence of Exudate: Serosanguineous Amount: Light Color: Red Odor: None Periwound Skin Appearance: Normal Wound edges: approximated Pain (associated with wound): none at time of assessment How does patient state this happened? pt unable to state how this happened Coccyx remains red and blanchable at time of assessment. No open areas noted. Patient incontient of stool at time of assessment faye care provided with two mileus at bedside. Left scar buttocks intact. No open areas noted. No drainage noted at time of assessment. Surface the patient is resting on: Proform SKIN PREVENTION RECOMMENDATION: 1. Pressure redistribution support surface as appropriate 2. Elevate heels 3. Remove boots/TEDS every shift and reapply 4. Head of bed 30 degrees as tolerated 5. Assess nutrition and hydration 6. Manage moisture 7. Avoid the use of containment devices while in bed 8. Use absorptive products on surfaces limit layers of linens on bed 9. Turn and reposition every 1-2 hours in bed and every 1 hour in chair as tolerated 10. Weight shifts every 15 minutes while up in chair 11. Offloading with pillows or device to keep heels elevated off bed 12. Monitor skin at least every shift 13. Inspect under medical devices twice a day WOUND TREATMENT RECOMMENDATIONS: Continue wheelchair cushion when oob. Continue Stage 4 guidelines to right ear. Continue skin tear to left forearm.
--- NOTE | 2018-10-14 07:15 | NUR ---
PHYSICAL THERAPY Patient was sound asleep in activity room Omayra chair when approached this am for therapy. Patient unable to arouse at this time. Will continue per POC as able. Zeferino Weaver, WASTEWATER SUPERVISOR
[2018-10-14 07:48] VITALS: BP 135/80
[2018-10-14] MEDS ORDERED: EXELON13.3 MG/21 T (09:23)
[2018-10-14] MEDS ORDERED: MIRTAZAPINE15 M1 PO (09:23)
[2018-10-14] MEDS ORDERED: MEMANTINE HCL10 MG PO (09:23)
[2018-10-14] MEDS ORDERED: PERCOCET 5-3251 EACH PO (09:46)
--- NOTE | 2018-10-14 11:41 | NUR ---
AM GROUP/FOCUS/EXERCISES PT ATTENDED GROUP BUT UNABLE TO PARTICIPATE DUE TO SLEEPING IN A RECLINER. PT DID NOT WAKE DURING GROUP EXCEPT FOR WHEN TAKING MEDS. PT WILL PREP FOR DISCHARGE FROM UNIT SOMETIME TODAY.
[2018-10-14] MEDS ORDERED: SEPTDS PO (11:51)
--- NOTE | 2018-10-14 14:26 | NUR ---
Patient not available for Occupational Therapy evaluation as he is in group therapy session. Nazia Rizzo OTR/L
--- NOTE | 2018-10-14 15:25 | NUR ---
PM GROUP/MEDITATION/STORY PT ATTENDED GROUP BUT UNABLE TO PARTICIPATE DUE TO SLEEPING IN RECLINER ON AND OFF. PT PLEASANT AND SMILING WHEN EYES OPEN. PT DID NOT BECOME AGITATED OR ASSAULTIVE AT THIS TIME. PT PLANS FOR DISCHARGE FROM [facility] SOMETIME TODAY.
--- NOTE | 2018-10-14 18:38 | NUR ---
PT ALERT, CONFUSED. PLEASANT, COOPERATIVE WITH ASSESSMENT. ALL DISCHARGE PAPERWORK COMPLETED. NURSE TO NURSE GIVEN TO NURSE AT [facility]. "[facility]" NOTIFED OF DELAYED AMBULANCE ARRIVAL.
--- NOTE | 2018-10-14 19:42 | NUR ---
2 STAFF FROM [facility] ON UNIT TO GET PT FOR TRANSPORT TO [facility]. PT LEFT VIA STRETCHER THIS TIME, 1941. ALERT TO PERSON ONLY. PLEASANTLY CONFUSED.
--- NOTE | 2018-10-15 07:50 | NUR ---
PHYSICAL THERAPY CO-SIGN I approve of the Phyical Therapy notes written above. ALENA ALVAREZ PT
== END 2018-10-14 19:47 | DRG 883 ==
LOC: 3N 13:18
PROVIDERS: Registered Nurse; ADMIT Psychiatry & Neurology Psychiatry
DX: F63.81 Intermittent explosive disorder (principal); E43 Unspecified severe protein-calorie malnutrition; F02.81 Dementia in other diseases classified elsewhere, unspecified severity, with behavioral disturbance; G30.9 Alzheimer's disease, unspecified; R26.2 Difficulty in walking, not elsewhere classified; I48.91 Unspecified atrial fibrillation; N40.0 Benign prostatic hyperplasia without lower urinary tract symptoms; I10 Essential (primary) hypertension; Z90.49 Acquired absence of other specified parts of digestive tract; Z68.25 Body mass index [BMI] 25.0-25.9, adult